=== PATIENT | male | born 1930 | race Caucasian/White ===

== ENCOUNTER 2018-06-21 06:14 | Inpatient (IN) ==
--- NOTE | 2018-06-21 06:46 | ED ---
HPI General Chief Complaint: Shortness of Breath/Dyspnea Stated Complaint: Stemi Alert Time Seen by Provider: 06/21/18 06:38 History of Present Illness 87-year-old male presents to the emergency department from home by EMS transport for complaint of shortness of breath. Patient called EMS this morning complaining of shortness of breath. Upon EMS from arrival to the patient's home he was visibly dyspneic and room air O2 saturation of 89%. Patient has history of COPD and is followed by Dr. Beckwith as his glass toughening operator. Patient's primary care provider is through the [place]. Patient has been evaluated in the past for atypical chest pain or left mid scapular pain and has been told in the past that he had a silent KY. Patient was seen in the hospital as recently as 2012 at which time he states he had a complete workup that showed no cardiac problems. Patient states that he does not smoke cigarettes. Patient states this episode of exacerbation of his COPD began around 2 AM on Wednesday morning resolved with use of home nebulizer and home medic patient's and his symptoms recurred at 2300 last evening and remained persistent. Patient does report having a 3/10 intensity discomfort that he calls a soreness that he has had for 3 weeks to the medial aspect of the left scapula. Patient has had this before. Patient is currently under the care of a chiropractor to massage out the area of discomfort. Patient states this discomfort is not new. Patient does not report any orthopnea or PND. Patient does not report any new swelling of the lower extremities. Patient does not report fever or chills. Patient does report feeling symptomatically improved after updraft treatments provided by EMS prior to arrival to the emergency department. According to paramedics he received an albuterol treatment as well as a DuoNeb treatment 125 mg of Solu-Medrol prior to arrival to the emergency department as well as 324 mg of aspirin. Patient does not take any blood thinning agents. Patient denies any chest pain. Patient does not report any neck jaw shoulder arm or abdominal pain. Patient is unclear as to what exacerbates or alleviates his symptoms. EMS reportedly called a STEMI alert from the field due to unknown new onset of left bundle branch block with shortness of breath and left mid scapular pain as well as prior reported history of silent KY. Patient's puppet master is Dr. Andrade, patient's primary care provider is the [facility], patient's glass toughening operator is Dr. Stovall. Related Data Home Medications Medication Instructions Recorded Confirmed aspirin [Aspirin Low Dose] 81 mg PO DAILY 06/21/18 06/21/18 brimonidine 1 drp OPHTHALMIC (EYE) BID 06/21/18 06/21/18 budesonide-formoterol 2 puff INHALATION BID 06/21/18 06/21/18 doxazosin 4 mg PO DAILY 06/21/18 06/21/18 finasteride 5 mg PO DAILY 06/21/18 06/21/18 gabapentin 100 mg PO TID 06/21/18 06/21/18 methimazole 5 mg PO DAILY 06/21/18 06/21/18 Allergies Allergy/AdvReac Type Severity Reaction Status Date / Time codeine Allergy Severe Irritabilit Verified 06/21/18 06:55 y/Anxiety diclofenac Allergy Severe Rash Verified 06/21/18 06:55 neomycin Allergy Intermediate Rash Verified 06/21/18 06:55 alfuzosin Allergy unknown Verified 06/21/18 06:55 hydrochlorothiazide Allergy unknown Verified 06/21/18 06:55 lisinopril Allergy Swelling Verified 06/21/18 06:55 losartan Allergy unknown Verified 06/21/18 06:55 Review of Systems Except as stated in HPI: all other systems reviewed are negative PMFSH Medical History Medical History Anxiety (Acute) BPH (benign prostatic hyperplasia) (Acute) Olivares's esophagus (Acute) COPD (chronic obstructive pulmonary disease) (Acute) Degeneration of intervertebral disc (Acute) Diverticular disease of colon (Acute) Glaucoma (Acute) Hemorrhoids (Acute) History of prostate cancer (Acute) Myocardial infarct, old (Acute) Osteoarthritis (Acute) Polyp of colon (Acute) Sensorineural hearing loss (SNHL) of both ears (Acute) Shoulder pain (Acute) Stenosis of rectum and anus (Acute) 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 In mild respiratory distress able to speak in complete sentences. Room air O2 saturation 95%. No stridor or hoarseness. SKIN: Focused skin assessment warm/dry. HEAD: Normocephalic. EYES: No scleral icterus. No injection or drainage. NECK: Supple, trachea midline. No JVD or lymphadenopathy. CARDIOVASCULAR: Regular rate and rhythm without murmurs, gallops, or rubs. RESPIRATORY: Breath sounds equal bilaterally diminished with few expiratory wheezes. No accessory muscle use. GASTROINTESTINAL: Abdomen soft, non-tender, nondistended. MUSCULOSKELETAL: No cyanosis, trace to 1+ pedal edema. BACK: Nontender without obvious deformity. No CVA tenderness. Course Consultations Consultation #1: I discussed the patient with Dr. Lobato who agrees with admission. Time: 10:28 Initial Documented Vital Signs Temperature 98.2 F 06/21/18 06:20 Pulse Rate 89 06/21/18 06:20 Respiratory Rate 16 06/21/18 06:20 Blood Pressure 159/76 H 06/21/18 06:20 Pulse Oximetry 95 06/21/18 06:20 Last Documented Vital Signs Temperature 98.2 F 06/21/18 06:20 Pulse Rate 86 06/21/18 06:55 Respiratory Rate 20 06/21/18 06:55 Blood Pressure 135/75 06/21/18 06:55 Pulse Oximetry 93 L 06/21/18 07:46 Sign Out Sign Out Data: Patient Sign Out occurred on 06/21/18 at 07:15. Patient's care was discussed, and care was transferred from Tyra Gonzáles MD to Shaun Lyman MD. Sign Out Comment: 87-year-old male with history of COPD and silent KY as well as left bundle branch block; care signed over to oncoming physician Dr. Lyman; anticipate patient will be admitted for exacerbation of COPD and for serial enzymes. CTA thor/abdomen has been ordered Last updated by Tyra Gonzáles MD at 06/21/18 07:10 Post-Handoff Eval: The patient is a 87-year-old male who was initially physician. The patient was signed out with CTA pending, negative for dissection, does reveal emphysema. Chest x-ray was unremarkable. BNP was 345, troponin 0.05. The patient has a history of COPD and is followed by his glass toughening operator, Dr. Stovall. The patient has been using nebulizers at home with minimal to mild relief of his symptoms, however, symptoms are persistent. He is not on home oxygen, his O2 saturation was noted to be 89% at home by EMS. The patient was reevaluated at 9:30 AM, still has shortness of breath with retractions and elevated respiratory rate. Therefore the patient will be admitted for COPD exacerbation. Medical Decision Making MDM Narrative Medical decision making narrative: 87-year-old male presents to the emergency department by EMS transport for evaluation of shortness of breath. Patient received aspirin Solu-Medrol albuterol and DuoNeb treatments prior to arrival to the emergency department. Patient was placed on supple oxygen as room air O2 saturation at home was 89%. Patient was noted per EMS to have a left bundle branch block complaining of left mid scapular pain and therefore due to unknown history of according to the patient of a left bundle branch block with left subscapular pain a STEMI alert was called in the field due to protocol not due to patient having ongoing chest pain referred neck jaw shoulder arm or abdominal pain sweats or nausea or vomiting. Patient here reported his discomfort of 3 weeks or longer as 2/10 in intensity and states that it waxes and wanes in intensity. Patient reports he has been seen in this hospital before in 2012. Review of medical records identifies patient has pre-existing left bundle branch block and review of the puppet master note Dr. Pagan identifies at the time of his presentation he had a knot-like sensation to the left mid scapular region at that time as well. Patient placed on monitoring engineer with continuous pulse oximetry supplemental oxygen added as well as 2 DuoNeb updrafts. EKG identifies normal sinus rhythm with rate of 86 rare unifocal PVC intraventricular conduction delay with left bundle branch block pattern and age-indeterminate anteroseptal infarct changes; Nitropaste 1 inch applied to the chest wall and close monitoring of blood pressure conducted. Lab Data Lab results reviewed: Yes I reviewed the patient's lab results. Lab results narrative: BNP was 345. Troponin was 0.05. Result diagrams: 06/21/18 06:20 06/21/18 06:20 Lab Results 06/21/18 06/21/18 06/21/18 Range/Units 06:20 06:20 06:20 WBC 6.3 (4.0-11.0) th/mm3 RBC 4.57 (4.50-5.90) mil/mm3 Hgb 15.3 (13.0-17.0) gm/dL Hct 45.4 (39.0-51.0) % MCV 99.2 (80.0-100.0) fL MCH 33.5 (27.0-34.0) pg MCHC 33.8 (32.0-36.0) % RDW 13.1 (11.6-17.2) % Plt Count 121 L (150-450) th/mm3 MPV 9.5 (7.0-11.0) fL Neut % (Auto) 62.3 (16.0-70.0) % Lymph % (Auto) 21.2 (9.0-44.0) % Stanley % (Auto) 12.1 H (0.0-8.0) % Eos % (Auto) 3.5 (0.0-4.0) % Baso % (Auto) 0.9 (0.0-2.0) % Neut # (Auto) 3.9 (1.8-7.7) th/mm3 Lymph # (Auto) 1.3 (1.0-4.8) th/mm3 Stanley # (Auto) 0.8 (0.0-0.9) th/mm3 Eos # (Auto) 0.2 (0.0-0.4) th/mm3 Baso # (Auto) 0.1 (0.0-0.2) th/mm3 WBC Differential . Differential Comment Auto diff final PT 11.2 (9.8-11.6) sec INR 1.1 Ratio APTT 23.7 L (24.3-30.1) sec Sodium 143 (136-145) meq/L Potassium 3.7 (3.5-5.1) meq/L Chloride 108 H (98-107) meq/L Carbon Dioxide 30.0 (21.0-32.0) meq/L Anion Gap 5 (5-15) meq/L BUN 15 (7-18) mg/dL Creatinine 0.87 (0.60-1.30) mg/dL Estimated GFR 83 L (>89) mL/min Random Glucose 92 (74-106) mg/dL Calcium 8.8 (8.5-10.1) mg/dL Magnesium 2.2 (1.5-2.5) mg/dL Total Bilirubin 0.6 (0.2-1.0) mg/dL AST 19 (15-37) U/L ALT 21 (12-78) U/L Alkaline Phosphatase 58 (45-117) U/L Total Creatine Kinase 96 (39-308) U/L Troponin I 0.05 (0.02-0.05) ng/mL B-Natriuretic Peptide (0-100) pg/mL Total Protein 6.1 L (6.4-8.2) g/dL Albumin 3.8 (3.4-5.0) g/dL 06/21/18 Range/Units 06:20 WBC (4.0-11.0) th/mm3 RBC (4.50-5.90) mil/mm3 Hgb (13.0-17.0) gm/dL Hct (39.0-51.0) % MCV (80.0-100.0) fL MCH (27.0-34.0) pg MCHC (32.0-36.0) % RDW (11.6-17.2) % Plt Count (150-450) th/mm3 MPV (7.0-11.0) fL Neut % (Auto) (16.0-70.0) % Lymph % (Auto) (9.0-44.0) % Stanley % (Auto) (0.0-8.0) % Eos % (Auto) (0.0-4.0) % Baso % (Auto) (0.0-2.0) % Neut # (Auto) (1.8-7.7) th/mm3 Lymph # (Auto) (1.0-4.8) th/mm3 Stanley # (Auto) (0.0-0.9) th/mm3 Eos # (Auto) (0.0-0.4) th/mm3 Baso # (Auto) (0.0-0.2) th/mm3 WBC Differential Differential Comment PT (9.8-11.6) sec INR Ratio APTT (24.3-30.1) sec Sodium (136-145) meq/L Potassium (3.5-5.1) meq/L Chloride (98-107) meq/L Carbon Dioxide (21.0-32.0) meq/L Anion Gap (5-15) meq/L BUN (7-18) mg/dL Creatinine (0.60-1.30) mg/dL Estimated GFR (>89) mL/min Random Glucose (74-106) mg/dL Calcium (8.5-10.1) mg/dL Magnesium (1.5-2.5) mg/dL Total Bilirubin (0.2-1.0) mg/dL AST (15-37) U/L ALT (12-78) U/L Alkaline Phosphatase (45-117) U/L Total Creatine Kinase (39-308) U/L Troponin I (0.02-0.05) ng/mL B-Natriuretic Peptide 345 H (0-100) pg/mL Total Protein (6.4-8.2) g/dL Albumin (3.4-5.0) g/dL Imaging Data Radiologist's impression: Chest X-Ray 06/21/18 06:27 CONCLUSION: No acute cardiopulmonary disease. Thoracic Aorta CT 06/21/18 06:29 CONCLUSION: 1. No aortic dissection or aneurysm. 2. Coronary artery atherosclerotic calcifications. 3. Pronounced emphysema. Discharge Plan Discharge Disposition Patient Disposition: 30 Still Patient Discharge Condition Condition: Stable Discharge Details Diagnosis: Acute exacerbation of chronic obstructive airways disease Physicians Team ED Provider: Shaun Lyman Primary Care Provider: Primary Care Amanda Up Rxs /Orders / Referrals /Forms Prescriptions: No Action aspirin [Aspirin Low Dose] 81 mg Tablet,Delayed Release (Dr/Ec) 81 mg PO DAILY RF: 0 doxazosin 4 mg Tablet 4 mg PO DAILY RF: 0 gabapentin 100 mg Capsule 100 mg PO TID RF: 0 finasteride 5 mg Tablet 5 mg PO DAILY RF: 0 brimonidine 0.2 % Drops 1 drp OPHTHALMIC (EYE) BID RF: 0 methimazole 5 mg Tablet 5 mg PO DAILY RF: 0 budesonide-formoterol 160-4.5 mcg/actuation Hfa Aerosol Inhaler 2 puff INHALATION BID RF: 0 Status ED Status: Pending Admission
[2018-06-21 06:57] LABS: Baso # (Auto) 0.1 th/mm3 (0.0-0.2); Baso % (Auto) 0.9 % (0.0-2.0); Eos # (Auto) 0.2 th/mm3 (0.0-0.4); Eos % (Auto) 3.5 % (0.0-4.0); Hematocrit 45.4 % (39.0-51.0); Hemoglobin 15.3 gm/dL (13.0-17.0); Lymph # (Auto) 1.3 th/mm3 (1.0-4.8); Lymph % (Auto) 21.2 % (9.0-44.0); Mean Corpuscular HGB Conc 33.8 % (32.0-36.0); Mean Corpuscular Hemoglobin 33.5 pg (27.0-34.0); Mean Corpuscular Volume 99.2 fL (80.0-100.0); Mean Platelet Volume 9.5 fL (7.0-11.0); Mono # (Auto) 0.8 th/mm3 (0.0-0.9); Mono % (Auto) 12.1 % (0.0-8.0); Neut # (Auto) 3.9 th/mm3 (1.8-7.7); Neut % (Auto) 62.3 % (16.0-70.0); Platelet Count 121 th/mm3 (150-450); Red Blood Count 4.57 mil/mm3 (4.50-5.90); Red Cell Distribution Width 13.1 % (11.6-17.2); White Blood Count 6.3 th/mm3 (4.0-11.0)
[2018-06-21 07:16] LABS: Activated Partial Thrombo Time 23.7 sec (24.3-30.1); INR 1.1 Ratio; Prothrombin Time 11.2 sec (9.8-11.6)
--- NOTE | 2018-06-21 07:19 | XR ---
EXAM DATE: 06/21/2018 7:00 AM EDT AGE/SEX: 87 years / Male INDICATIONS: Short of breath. Left scapular pain. CLINICAL DATA: This is the patient's initial encounter. Patient reports that signs and symptoms have been present for 1 day and indicates a pain score of 3/10. MEDICAL/SURGICAL HISTORY: Chronic obstructive pulmonary disease. Silent myocardial infarction. None. COMPARISON: POI, XR CHEST PA AND LAT, 11/17/2017. . FINDINGS: The lungs are clear without infiltrate, nodule, or mass. There is no appreciable pleural effusion for technique. Heart and mediastinum are unremarkable. CONCLUSION: No acute cardiopulmonary disease. Electronically signed by: Andrade Pennington MD 06/21/2018 7:17 AM EDT
[2018-06-21 07:27] LABS: Alanine Aminotransferase 21 U/L (12-78); Albumin 3.8 g/dL (3.4-5.0); Anion Gap 5 meq/L (5-15); Aspartate Aminotransferase 19 U/L (15-37); Blood Urea Nitrogen 15 mg/dL (7-18); Calcium 8.8 mg/dL (8.5-10.1); Chloride 108 meq/L (98-107); Glomerular Filtration Rate 83 mL/min (>89); Glucose,Random 92 mg/dL (74-106); Magnesium 2.2 mg/dL (1.5-2.5); Potassium 3.7 meq/L (3.5-5.1); Sodium 143 meq/L (136-145)
[2018-06-21 07:31] LABS: Alkaline Phosphatase 58 U/L (45-117); Total Protein 6.1 g/dL (6.4-8.2); Troponin I 0.05 ng/mL (0.02-0.05)
[2018-06-21 07:39] LABS: Creatine Kinase 96 U/L (39-308)
--- NOTE | 2018-06-21 09:16 | CT ---
EXAM DATE: 06/21/2018 8:34 AM EDT AGE/SEX: 87 years / Male INDICATIONS: Shortness of breath and chest pain. CLINICAL DATA: This is the patient's initial encounter. Patient reports that signs and symptoms have been present for 1 day and indicates a pain score of 3/10. MEDICAL/SURGICAL HISTORY: Chronic obstructive pulmonary disease. Prostate cancer. None. RADIATION DOSE: 6.45 CTDI (mGy) COMPARISON: CT of the thorax 06/03/2013. TECHNIQUE: Volumetric scanning was performed using a multi-row detector CT scanner during bolus infu corina of 96 ml Omnipaque 350 (iohexol) nonionic water-soluble contrast as a single exam dose. The da ta was post processed with a variety of visualization algorithms including full volume maximum intens ity projection, multi-planar sliding thin slab reformation, curved planar reformation, and surface re ndering techniques. Using automated exposure control and adjustment of the mA and/or kV according to patient size, radiation dose was kept as low as reasonably achievable to obtain optimal diagnostic q uality images. DICOM format image data is available electronically for review and comparison. FINDINGS: THORACIC/ABDOMINAL AORTA: The aorta is normal in caliber and course. No aneurysm or dissection. Scatt ered calcified atheromatous plaque without hemodynamically significant stenosis involving the aorta o r inflow vessels. Conventional anatomy at the arch vessels. Arch vessels are patent. The celiac, SMA, TANK, and renal arteries are patent. HEART AND MEDIASTINUM: The heart is normal in size. No pericardial effusion. Coronary artery atherosc lerotic calcifications are noted. Pulmonary arteries are normal in caliber. No filling defects observ ed. No mass or adenopathy. LUNG PARENCHYMA: Bullous emphysematous changes again noted. No acute infiltrate. OTHER STRUCTURES: The gallbladder is surgically absent. Right lower pole renal cyst. Hepatic steatosi s. Scattered colonic diverticuli. A degenerative lumbar spine. CONCLUSION: 1. No aortic dissection or aneurysm. 2. Coronary artery atherosclerotic calcifications. 3. Pronounced emphysema. Electronically signed by: James Nash MD 06/21/2018 9:15 AM EDT
--- NOTE | 2018-06-21 09:48 | ECG ---
Date Performed: 06/21/2018 Time Performed: 06:22:17 PTAGE: 87 years EKG: Sinus rhythm WITH OCCASIONAL VENTRICULAR PREMATURE COMPLEXES LEFT BUNDLE BRANCH BLOCK ABNORMAL ECG NO PREVIOUS TRACING DOCTOR: Tho Fenton Interpretating Date/Time 06/21/2018 09:47:46
--- NOTE | 2018-06-21 11:28 | P.HPIM ---
History of Present Illness Primary Care Physician: No Primary Care Physician Chief Complaint: shortness of breath History of Present Illness: patient is a 87 y/o male with history of emphysema,CAD and prostate cancer who presented to ER with worsening sob. he says that his sob started two days ago and gradually got worse. he says that he used all his home inhalers and also his nebulizer with no significant relief. he denies any chest pain, fever, chills. he denies any cough and he says that his sputum is clear. he was noted to have an O2 sat of 89% upon arrival to ER. Inpatient Certification: I certify that the inpatient services were ordered in accordance with Medicare regulations governing the order. 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 - Medical History Medical History: Medical History (Last Updated 06/21/18 @ 07:16 by Dang Schofield) Anxiety BPH (benign prostatic hyperplasia) Olivares's esophagus COPD (chronic obstructive pulmonary disease) Degeneration of intervertebral disc Diverticular disease of colon Glaucoma Hemorrhoids History of prostate cancer Myocardial infarct, old Osteoarthritis Polyp of colon Sensorineural hearing loss (SNHL) of both ears Shoulder pain Stenosis of rectum and anus Thyrotoxicosis with or without goiter - Tobacco History Second Hand Smoke Exposure: No Tobacco Use In Past 30 Days: No Smoking Status: Former smoker Tobacco Type: Cigarettes - Alcohol History How Often Do You Have a Drink Containing Alcohol: Never - Substance Use History Substance History: No History of Abuse - Immunization History Tetanus Immunization: <5 Years Hx Influenza Vaccine This Season: Yes Medications and Allergies Allergies Allergy/AdvReac Type Severity Reaction Status Date / Time codeine Allergy Severe Irritabilit Verified 06/21/18 06:55 y/Anxiety diclofenac Allergy Severe Rash Verified 06/21/18 06:55 neomycin Allergy Intermediate Rash Verified 06/21/18 06:55 alfuzosin Allergy unknown Verified 06/21/18 06:55 hydrochlorothiazide Allergy unknown Verified 06/21/18 06:55 lisinopril Allergy Swelling Verified 06/21/18 06:55 losartan Allergy unknown Verified 06/21/18 06:55 Home Medications Medication Instructions Recorded Confirmed Type aspirin [Aspirin Low Dose] 81 mg PO DAILY 06/21/18 06/21/18 History brimonidine 1 drp OPHTHALMIC (EYE) BID 06/21/18 06/21/18 History budesonide-formoterol 2 puff INHALATION BID 06/21/18 06/21/18 History doxazosin 4 mg PO DAILY 06/21/18 06/21/18 History finasteride 5 mg PO DAILY 06/21/18 06/21/18 History gabapentin 100 mg PO TID 06/21/18 06/21/18 History methimazole 5 mg PO DAILY 06/21/18 06/21/18 History Exam Vital signs: Vital Signs 06/21/18 06:20 06/21/18 06:25 06/21/18 06:30 Temperature 98.2 F Pulse Rate 83 79 88 Respiratory Rate 16 22 Blood Pressure 159/76 H Pulse Oximetry 95 96 06/21/18 06:35 06/21/18 06:50 06/21/18 06:55 Temperature Pulse Rate 83 86 Respiratory Rate 18 20 Blood Pressure 135/75 Pulse Oximetry 94 L 94 L 06/21/18 07:46 Temperature Pulse Rate Respiratory Rate Blood Pressure Pulse Oximetry 93 L Intake & Output 06/20/18 06/21/18 06/21/18 18:59 06:59 18:59 Weight 73.482 kg - Constitutional mild distress - Routine HEENT Exam Head: Present: atraumatic - Routine Neck Exam Present: supple - Routine Respiratory Exam Present: diminished air movement - Routine Cardiovascular Exam Present: RRR - Routine Abdominal Exam Present: soft - Routine Neurological Exam Present: alert, oriented X3 no pedal edema. Results - Labs CBC & Chem 7: 06/21/18 06:20 06/21/18 06:20 Labs: Short CBC 06/21/18 Range/Units 06:20 WBC 6.3 (4.0-11.0) th/mm3 Hgb 15.3 (13.0-17.0) gm/dL Hct 45.4 (39.0-51.0) % Plt Count 121 L (150-450) th/mm3 BMP 06/21/18 06:20 Sodium 143 Potassium 3.7 Chloride 108 H Carbon Dioxide 30.0 BUN 15 Creatinine 0.87 Calcium 8.8 Cardiac Enzymes 06/21/18 Range/Units 06:20 Total Creatine Kinase 96 (39-308) U/L Troponin I 0.05 (0.02-0.05) ng/mL Liver Function 06/21/18 Range/Units 06:20 Total Bilirubin 0.6 (0.2-1.0) mg/dL AST 19 (15-37) U/L ALT 21 (12-78) U/L Alkaline Phosphatase 58 (45-117) U/L Albumin 3.8 (3.4-5.0) g/dL - Imaging Impressions Chest X-Ray 06/21/18 06:27 CONCLUSION: No acute cardiopulmonary disease. Thoracic Aorta CT 06/21/18 06:29 CONCLUSION: 1. No aortic dissection or aneurysm. 2. Coronary artery atherosclerotic calcifications. 3. Pronounced emphysema. Caprini VTE Risk Assessment Caprini VTE Risk Assessment: Moderate/High Risk (score >= 2) Caprini Risk Assessment Model: Point Value = 1 Point Value = 2 Point Value = 3 Point Value = 5 Age 41-60 Minor surgery BMI > 25 kg/m2 Swollen legs Varicose veins or History of unexplained or recurrent spontaneous Oral contraceptives or hormone replacement Sepsis (< 1 month) Serious lung disease, including pneumonia (< 1 month) Abnormal pulmonary function Acute myocardial infarction Congestive heart failure (< 1 month) History of inflammatory bowel disease Medical patient at bed rest Age 61-74 Arthroscopic surgery Major open surgery (> 45 min) Laparoscopic surgery (> 45 min) Malignancy Confined to bed (> 72 hours) Immobilizing plaster cast Central venous access Age >= 75 History of VTE Family history of VTE Factor V Leiden Prothrombin [id number] Lupus anticoagulant Anticardiolipin antibodies Elevated serum homocysteine Heparin-induced thrombocytopenia Other congenital or acquired thrombophilia Stroke (< 1 month) Elective arthroplasty Hip, pelvis, or leg fracture Acute spinal cord injury (< 1 month) Prophylaxis Regimen: Total Risk Factor Score Risk Level Prophylaxis Regimen 0-1 Low Early ambulation 2 Moderate Order ONE of the following: *Sequential Compression Device (SCD) *Heparin 5000 units SQ BID 3-4 Higher Order ONE of the following medications: *Heparin 5000 units SQ TID *Enoxaparin/Lovenox 40 mg SQ daily (WT < 150 kg, CrCl > 30 mL/min) *Enoxaparin/Lovenox 30 mg SQ daily (WT < 150 kg, CrCl > 10-29 mL/min) *Enoxaparin/Lovenox 30 mg SQ BID (WT < 150 kg, CrCl > 30 mL/min) AND/OR *Sequential Compression Device (SCD) 5 or more Highest Order ONE of the following medications: *Heparin 5000 units SQ TID (Preferred with Epidurals) *Enoxaparin/Lovenox 40 mg SQ daily (WT < 150 kg, CrCl > 30 mL/min) *Enoxaparin/Lovenox 30 mg SQ daily (WT < 150 kg, CrCl > 10-29 mL/min) *Enoxaparin/Lovenox 30 mg SQ BID (WT < 150 kg, CrCl > 30 mL/min) AND *Sequential Compression Device (SCD) Assessment and Plan - Plan A/P - acute hypoxemic respiratory failure keep on oxygen to keep O2 sat > 90%- continue with scheduled and PRN neb treatment- will start on IV steroids. consult pulmonary ( )- needs walk test before discharge. -history of CAD and prostate cancer; resume home meds. -consult PT and case management for dc planning. -DVT prophylaxis with subq Lovenox. Discussed Condition With: ER physician, the patient and his family.
[2018-06-21] MEDS: MethylPREDNISolone Sod Succinate Inj 40 MG/ML Vial IV.PUSH SCH ×2 (13:12→23:21)
[2018-06-21] MEDS: Gabapentin 100 MG Capsule PO SCH ×2 (13:12→18:45)
[2018-06-21] MEDS: ALPRAZolam 0.25 MG Tablet PO PRN (16:44)
--- NOTE | 2018-06-21 20:33 | MB ---
cc: Fabio Stovall MD, Arjun D MD DATE: 06/21/2018 REQUESTING PHYSICIAN: Dr. Lobato REASON FOR CONSULTATION: COPD exacerbation. HISTORY OF PRESENT ILLNESS: Mr. Alba is a pleasant 87-year-old male with history of severe COPD. He has been having chest pain for about 1 month or so off and on in the back area. He has seen a chiropractor and other physicians who did not help him. Over the last 2 days, he has been having worsening of his shortness of breath. Yesterday, he could not sleep because of shortness of breath. He continued to have his chest discomfort. EMS was called and initially he was brought in as a STEMI alert. He had a CT scan of the chest done, which shows no aortic dissection other than severe emphysema, no other changes were noted. Patient given bronchodilator treatment and feels significantly better. Chest pain is somewhat improved. He has tightness in the chest. No fever or chills. No sputum production. LABORATORY DATA: His workup shows WBC count 6.3, hemoglobin 15.3, hematocrit 45.4, MCV 99, platelet count 121. Sodium 143, potassium 3.7, chloride 100, CO2 of 30, BUN 15, creatinine 0.87. Troponin 0.05. BNP 345. PAST MEDICAL HISTORY: Significant for history of COPD, anxiety disorder, BPH, Olivares's esophagitis, history of CA of the prostate, history of PA in the past. CURRENT MEDICATIONS: 1. Albuterol nebulizer treatment. 2. Xanax 0.25 mg q. 12 hrs. 3. Aspirin 81 mg a day. 4. Alphagan eye drops. 5. Symbicort 160/4.5 two puffs twice a day. 6. Cardura 4 mg a day. 7. Lovenox 40 mg a day 8. Finasteride 5 mg a day. 9. Neurontin 100 mg 3 times a day. 10. Methimazole 5 mg daily. 11. Solu-Medrol 40 mg q. 8 hrs. 12. Tramadol 50 mg at night. ALLERGIES: CODEINE, DICLOFENAC, NEOMYCIN, ALFUZOSIN, HYDROCHLOROTHIAZIDE, LISINOPRIL AND LOSARTAN. SOCIAL HISTORY: He has history of smoking in the past. No alcohol abuse. FAMILY HISTORY: He lives alone. His niece lives nearby. REVIEW OF SYSTEMS: He lives alone. He is able to ambulate. Does not use any oxygen. No DVT or pulmonary embolism. No seizure, stroke or epilepsy. PHYSICAL EXAMINATION: GENERAL: Elderly male, mildly short of breath, not in any acute distress. VITAL SIGNS: Blood pressure 147/83, heart rate 74, respirations 20, temperature 99. HEENT: Pupils are equal and reactive to light. Oral mucosa and nasal mucosa normal. NECK: Supple. JVP not raised. CHEST: He has expiratory rhonchi. HEART: S1, S2 normal. ABDOMEN: Benign. EXTREMITIES: No edema. IMPRESSION: 1. Chronic obstructive pulmonary disease with exacerbation. 2. Chest pain, chronic. 3. History of coronary artery disease. 4. Carcinoma of the prostate. PLAN: I discussed with patient and his niece. We will give him aerosol treatment, IV Solu-Medrol, Xanax for anxiety, supplement his oxygen. We will reevaluate him for home oxygen therapy. Further treatment will depend on the course in the hospital. Thank you, Dr. Lobato, for this consult. MD SWATHI Robertson//nadine , 07:17 PM , 07:39 PM
[2018-06-21] MEDS: Budesonide-Formoterol 160/4.5 MCG 6 GM Inhaler INH SCH (23:21)
[2018-06-21] MEDS: Brimonidine 0.2% Opth Drops 5 ML Bottle EACH EYE SCH (23:21)
[2018-06-22] MEDS: MethylPREDNISolone Sod Succinate Inj 40 MG/ML Vial IV.PUSH SCH ×3 (04:16→21:21)
[2018-06-22] MEDS: Enoxaparin Inj 40 MG/0.4 ML Syringe SQ SCH (09:39)
[2018-06-22] MEDS: ALPRAZolam 0.25 MG Tablet PO PRN (09:40)
[2018-06-22] MEDS: Gabapentin 100 MG Capsule PO SCH ×3 (09:40→18:32)
[2018-06-22] MEDS: Doxazosin 4 MG Tablet PO SCH (09:40)
[2018-06-22] MEDS: Budesonide-Formoterol 160/4.5 MCG 6 GM Inhaler INH SCH ×2 (09:41→21:22)
[2018-06-22] MEDS: Brimonidine 0.2% Opth Drops 5 ML Bottle EACH EYE SCH ×2 (09:41→21:22)
[2018-06-22] MEDS: Finasteride 5 MG Tablet PO SCH (09:41)
--- NOTE | 2018-06-22 13:09 | P.PN ---
Subjective Interval history: patient feel better minimal dry cough not on home 02 also with anxiety component baseline uses a cane when out of the house Physical Exam Vital signs: Vital Signs 06/21/18 13:14 06/21/18 13:30 06/21/18 16:00 Temperature 99 F Pulse Rate 94 H 74 Respiratory Rate 25 H 20 Blood Pressure 158/86 H 147/83 H Pulse Oximetry 98 95 96 06/21/18 20:00 06/21/18 22:13 06/21/18 22:14 Temperature 98 F Pulse Rate 73 74 Respiratory Rate 18 20 Blood Pressure 117/67 Pulse Oximetry 97 96 06/22/18 00:51 06/22/18 01:20 06/22/18 03:50 Temperature 97.7 F Pulse Rate 71 67 73 Respiratory Rate 16 17 16 Blood Pressure 115/72 Pulse Oximetry 97 06/22/18 04:00 06/22/18 08:00 06/22/18 09:39 Temperature 98.2 F 98.1 F Pulse Rate 68 66 83 Respiratory Rate 20 21 20 Blood Pressure 120/60 112/55 L Pulse Oximetry 98 96 94 L 06/22/18 12:00 06/22/18 12:57 Temperature 98 F Pulse Rate 68 80 Respiratory Rate 19 20 Blood Pressure 117/60 Pulse Oximetry 98 Intake & Output 06/21/18 06/22/18 06/22/18 18:59 06:59 18:59 Intake Total 720 / 720 1350 / 1350 Balance 720 / 720 1350 / 1350 Weight 73.5 kg Intake: Oral 720 / 720 1350 / 1350 Other: # Voids 2 4 Date of Last Bowel Movement 06/20/18 # Bowel Movements 0 Narrative: awake and alert, speaking in full sentences- states some anxiety component anicteric no throat exudates lungs- decrease breath sounds, occasional wheeze, no rales regular rhythm abdomen soft, nontender extremities n edema neuro exam- non focal Results - Labs CBC & Chem 7: 06/21/18 06:20 06/21/18 06:20 Assessment and Plan - Plan 87 years old male Acute hypoxemic respiratory failure- clinically feeling better- wheezes decreased - continue on solumedrol q 8- change to po in am keep on oxygen to keep O2 sat > 90%- continue with scheduled and PRN neb treatment- will start on IV steroids. 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 - continue on his inhaler- symbicort - continue on duonebs - patient states he ahs nebulizers at home history of CAD and prostate cancer; resume home meds. -consult PT and case management for dc planning. -DVT prophylaxis with subq Lovenox. History iof hypethyroidism- on Methimazole Encourage patient to up and ambulate if continues to do well- DC tomorrow
--- NOTE | 2018-06-22 17:34 | P.PNPL ---
Subjective Interval history: 87 YOWM with COPD Exac,CP, h/o ca prostate Breathing better gets anxious Xanax helps a lot On NC Physical Exam Vital signs: Vital Signs 06/21/18 20:00 06/21/18 22:13 06/21/18 22:14 Temperature 98 F Pulse Rate 73 74 Respiratory Rate 18 20 Blood Pressure 117/67 Pulse Oximetry 97 96 Pulse Oximetry [Exertion on Room Air] Pulse Oximetry [Resting on Room Air] Pulse Oximetry [Resting with Oxygen] 06/22/18 00:51 06/22/18 01:20 06/22/18 03:50 Temperature 97.7 F Pulse Rate 71 67 73 Respiratory Rate 16 17 16 Blood Pressure 115/72 Pulse Oximetry 97 Pulse Oximetry [Exertion on Room Air] Pulse Oximetry [Resting on Room Air] Pulse Oximetry [Resting with Oxygen] 06/22/18 04:00 06/22/18 08:00 06/22/18 09:39 Temperature 98.2 F 98.1 F Pulse Rate 68 66 83 Respiratory Rate 20 21 20 Blood Pressure 120/60 112/55 L Pulse Oximetry 98 96 94 L Pulse Oximetry [Exertion on Room Air] Pulse Oximetry [Resting on Room Air] Pulse Oximetry [Resting with Oxygen] 06/22/18 12:00 06/22/18 12:57 06/22/18 16:33 Temperature 98 F Pulse Rate 68 80 78 Respiratory Rate 19 20 20 Blood Pressure 117/60 Pulse Oximetry 98 Pulse Oximetry [Exertion on Room Air] Pulse Oximetry [Resting on Room Air] Pulse Oximetry [Resting with Oxygen] 06/22/18 17:28 Temperature Pulse Rate Respiratory Rate Blood Pressure Pulse Oximetry Pulse Oximetry [Exertion on Room Air] 83 L Pulse Oximetry [Resting on Room Air] 92 L Pulse Oximetry [Resting with Oxygen] 92 L Intake & Output 06/21/18 06/22/18 06/22/18 18:59 06:59 18:59 Intake Total 720 / 720 1350 / 1350 Balance 720 / 720 1350 / 1350 Weight 73.5 kg Intake: Oral 720 / 720 1350 / 1350 Other: # Voids 2 4 Date of Last Bowel Movement 06/20/18 # Bowel Movements 0 GENERAL: Elderly WM, mild sob, anxious SKIN: Warm and dry. HEAD: Normocephalic. EYES: No scleral icterus. No injection or drainage. NECK: Supple, trachea midline. No JVD or lymphadenopathy. CARDIOVASCULAR: Regular rate and rhythm without murmurs, gallops, or rubs. RESPIRATORY: Breath sounds equal bilaterally. No accessory muscle use. End exp rhonchi. GASTROINTESTINAL: Abdomen soft, non-tender, nondistended. MUSCULOSKELETAL: No cyanosis, or edema. BACK: Nontender without obvious deformity. No CVA tenderness. Assessment and Plan - Plan IMPRESSION: 1. Chronic obstructive pulmonary disease with exacerbation. 2. Chest pain, chronic. 3. History of coronary artery disease. 4. Carcinoma of the prostate. PLAN: Aerosol nebs IV Steroids Supplement 02 walk test xanax prn for anxiety.
[2018-06-23] MEDS: MethylPREDNISolone Sod Succinate Inj 40 MG/ML Vial IV.PUSH SCH ×2 (04:16→11:19)
[2018-06-23] MEDS: ALPRAZolam 0.25 MG Tablet PO PRN ×2 (06:26→16:32)
[2018-06-23] MEDS: Doxazosin 4 MG Tablet PO SCH (08:34)
[2018-06-23] MEDS: Finasteride 5 MG Tablet PO SCH (08:34)
[2018-06-23] MEDS: Budesonide-Formoterol 160/4.5 MCG 6 GM Inhaler INH SCH (08:35)
[2018-06-23] MEDS: Enoxaparin Inj 40 MG/0.4 ML Syringe SQ SCH (08:35)
[2018-06-23] MEDS: Gabapentin 100 MG Capsule PO SCH ×2 (08:35→12:05)
[2018-06-23] MEDS: Brimonidine 0.2% Opth Drops 5 ML Bottle EACH EYE SCH (08:35)
--- NOTE | 2018-06-23 09:37 | P.PN ---
Subjective Interval history: awake and alert, no coughing speells- definitely some anxiety component/attacks on exam- no wheezing he qualifies for home 02 definitely has some anxiety componenet- but not clear what comes first and trigger SOB or anxiety comes first Physical Exam Vital signs: Vital Signs 06/22/18 09:39 06/22/18 12:00 06/22/18 12:57 Temperature 98 F Pulse Rate 83 68 80 Respiratory Rate 20 19 20 Blood Pressure 117/60 Pulse Oximetry 94 L 98 Pulse Oximetry [Exertion on Room Air] Pulse Oximetry [Resting on Room Air] Pulse Oximetry [Resting with Oxygen] 06/22/18 16:00 06/22/18 16:33 06/22/18 17:28 Temperature 97.5 F L Pulse Rate 80 78 Respiratory Rate 19 20 Blood Pressure 135/68 Pulse Oximetry 97 Pulse Oximetry [Exertion on Room Air] 83 L Pulse Oximetry [Resting on Room Air] 92 L Pulse Oximetry [Resting with Oxygen] 92 L 06/22/18 20:00 06/22/18 20:32 06/23/18 00:00 Temperature 98.0 F 97.3 F L Pulse Rate 75 84 83 Respiratory Rate 19 18 18 Blood Pressure 148/66 H 130/70 Pulse Oximetry 95 95 94 L Pulse Oximetry [Exertion on Room Air] Pulse Oximetry [Resting on Room Air] Pulse Oximetry [Resting with Oxygen] 06/23/18 00:03 06/23/18 04:00 06/23/18 04:10 Temperature 98.6 F Pulse Rate 74 82 84 Respiratory Rate 16 18 17 Blood Pressure 125/77 Pulse Oximetry 96 98 97 Pulse Oximetry [Exertion on Room Air] Pulse Oximetry [Resting on Room Air] Pulse Oximetry [Resting with Oxygen] 06/23/18 08:00 Temperature 97.4 F L Pulse Rate 77 Respiratory Rate 16 Blood Pressure 144/74 H Pulse Oximetry 97 Pulse Oximetry [Exertion on Room Air] Pulse Oximetry [Resting on Room Air] Pulse Oximetry [Resting with Oxygen] Intake & Output 06/22/18 06/23/18 06/23/18 18:59 06:59 18:59 Intake Total 720 / 720 Balance 720 / 720 Weight 73.3 kg Intake: Oral 720 / 720 Other: # Voids 4 1 Date of Last Bowel Movement 06/22/18 06/22/18 # Bowel Movements 0 Narrative: laying flat in bed awake and alert, speaking in full sentences- anicteric no throat exudates lungs- decrease breath sounds, good air entry, no wheezes, no rhonchi regular rhythm abdomen soft, nontender extremities no edema neuro exam- non focal Results - Labs CBC & Chem 7: 06/21/18 06:20 06/21/18 06:20 Assessment and Plan - Plan 87 years old male Acute hypoxemic respiratory failure- secondary to COPD exacerbation- 02 requiring - continue on solumedrol q 8- change to po Prednisone keep on oxygen to keep O2 sat > 90%- continue with scheduled and PRN neb treatment- seen by Dr. ureña- known to hime - needs walk test before discharge. - continue on his inhaler- symbicort - continue on duonebs- patient states he has machine and meds at home - patient states he ahs nebulizers at home - change to po steroids= Prednisone 20 mg po bid x 5 days history of CAD and prostate cancer; resume home meds. -consult PT and case management for dc planning. -DVT prophylaxis with subq Lovenox. History iof hypethyroidism- on Methimazole - needs OP ff up with his PCP- check TFTS Anxiety component - continue on Xanax 0.25 mg po bid Encourage patient to up and ambulate DC today with home 02 if arrranged OP ff up with PCP-- Genie and Dr. Ureña
--- NOTE | 2018-06-23 09:41 | P.DCO ---
- Home Health Nursing Order: Medical education, Signs/symptoms of disease process, Oxygen administration education, Nursing assessment with vital signs - Case Management Consult Yes - Certification I have seen patient Tommy Alba on 06/23/18. My clinical findings support the need for the requested home health care services because: Limited mobility due to disease progression, Patient has SOB I certify that my clinical findings support that this patient is homebound because: Hx COPD - exertion dyspnea/weakness
[2018-06-23 11:19] VITALS: RESP 16
[2018-06-23 12:10] VITALS: BP 103/64; PULSE 70; TEMP 97.8; O2SAT 93
== END 2018-06-23 16:49 | disposition home health service (06) ==
LOC: NEPC 06:14 → NEDA 10:43 → N05 13:26
PROVIDERS: ADMIT Internal Medicine; ATTEND Internal Medicine

== ENCOUNTER 2018-07-23 13:01 | Inpatient (IN) ==
[2018-07-23] MEDS ORDERED: MethylPREDNISolone Sod Succinate Inj 125 MG/2 ML Vial IV.PUSH ONE (13:19)
--- NOTE | 2018-07-23 13:35 | ED ---
HPI General Chief Complaint: Shortness of Breath/Dyspnea Stated Complaint: SOB Time Seen by Provider: 07/23/18 13:09 Source: patient, EMS, RN notes reviewed and old records reviewed Mode of arrival: EMS Limitations: no limitations History of Present Illness 87-year-old male presents by ambulance for shortness of breath. He wears 2 L of nasal cannula oxygen all the time now. 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 The ambulance team arrived his oxygen saturation was in the 70s on his home oxygen. They placed him on 4 L and gave him a breathing treatment. When his heart rate was elevated they gave him Cardizem IV prior to arrival. Patient states he is feeling better now. He states that his temp at home was 99.8. He denies other concurrent complaints. MD Complaint: shortness of breath Onset (ago): day(s) Severity: similar to previous episodes Consistency/Duration: constant Relieving factors: bronchodilators Exacerbating factors: movement Known history of: COPD Associated symptoms: fever Treatment prior to arrival: oxygen and bronchodilator Related Data Home Medications Medication Instructions Recorded Confirmed aspirin [Aspirin Low Dose] 81 mg PO DAILY 06/21/18 07/23/18 brimonidine 1 drp OPHTHALMIC (EYE) BID 06/21/18 07/23/18 budesonide-formoterol 2 puff INHALATION BID 06/21/18 07/23/18 doxazosin 4 mg PO DAILY 06/21/18 07/23/18 finasteride 5 mg PO DAILY 06/21/18 07/23/18 gabapentin 100 mg PO TID 06/21/18 07/23/18 methimazole 5 mg PO DAILY 06/21/18 07/23/18 tramadol 50 mg PO QID 06/21/18 07/23/18 furosemide [Lasix] 20 mg PO DAILY 07/23/18 07/23/18 potassium chloride 10 meq PO DAILY 07/23/18 07/23/18 Previous Rx's Medication Instructions Recorded alprazolam [Xanax] 0.25 mg PO Q12H PRN #20 tab 06/23/18 ipratropium-albuterol 1 amp NEB Q4HR NEB ml 06/23/18 Allergies Allergy/AdvReac Type Severity Reaction Status Date / Time codeine Allergy Severe Irritabilit Verified 07/23/18 13:22 y/Anxiety diclofenac Allergy Severe Rash Verified 07/23/18 13:22 neomycin Allergy Intermediate Rash Verified 07/23/18 13:22 Review of Systems ROS: all other systems reviewed are negative [facility] Medical History Medical History Emphysema of lung (Acute) Anxiety (Acute) BPH (benign prostatic hyperplasia) (Acute) Olivares's esophagus (Acute) COPD (chronic obstructive pulmonary disease) (Acute) Degeneration of intervertebral disc (Acute) Diverticular disease of colon (Acute) Glaucoma (Acute) Hemorrhoids (Acute) History of prostate cancer (Acute) Myocardial infarct, old (Acute) Osteoarthritis (Acute) Polyp of colon (Acute) Sensorineural hearing loss (SNHL) of both ears (Acute) Shoulder pain (Acute) Stenosis of rectum and anus (Acute) Thyrotoxicosis with or without goiter (Acute) Social History Social History Substance History: No History of Abuse Second Hand Smoke Exposure: No Smoking Status: Former smoker Tobacco Type: Cigarettes How Often Do You Have a Drink Containing Alcohol: Never Recent Travel in [facility] within the Last 8 Weeks: No Recent Out of Country Travel within the Last 8 Weeks: No Immunization History Tetanus Immunization: <5 Years Tetanus Immunization Year if Known: 2012 Exam Narrative Exam Narrative: GENERAL: 87-year-old male in no apparent distress SKIN: Focused skin assessment warm/dry. HEAD: Atraumatic. Normocephalic. EYES: Pupils equal and round. No scleral icterus. No injection or drainage. ENT: No nasal bleeding or discharge. Mucous membranes pink and moist. NECK: Trachea midline. CARDIOVASCULAR: irregular rate and rhythm. RESPIRATORY: Inspiratory and expiratory wheezing bilaterally GASTROINTESTINAL: Abdomen soft, non-tender, nondistended. MUSCULOSKELETAL: No obvious deformities. No clubbing. No cyanosis. NEUROLOGICAL: Awake and alert. Moves all extremities. Normal speech. PSYCHIATRIC: Appropriate mood and affect Course Reevaluation(s) Reevaluation #1: Patient and updated about results. 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 Patient given aspirin. Currently no chest pain. Agree to admission for further care. Patient is currently on 3 L of oxygen Consultations Consultation #1: Dr. Merida agrees to admission Initial Documented Vital Signs Pulse Oximetry 95 07/23/18 13:18 Last Documented Vital Signs Temperature 99.3 F 07/23/18 13:21 Pulse Rate 78 07/23/18 15:13 Respiratory Rate 20 07/23/18 15:13 Blood Pressure 112/62 07/23/18 15:13 Pulse Oximetry 94 L 07/23/18 15:13 Medical Decision Making MDM Narrative Medical decision making narrative: Will check blood work, imaging and dose with Solu-Medrol and repeat DuoNeb's and reevaluate. EKG shows left bundle which is on prior per patient, no active chest pain Medical Screen Exam Complete: Yes Emergency Medical Condition: Yes Differential Diagnosis Differential Diagnosis: COPD exacerbation, CHF, anemia, renal failure, pneumonia Lab Data Lab results reviewed: Yes I reviewed the patient's lab results. Result diagrams: 07/23/18 13:26 07/23/18 13:26 Lab Results 07/23/18 07/23/18 07/23/18 Range/Units 13:26 13:26 13:26 WBC 6.3 (4.0-11.0) th/mm3 RBC 4.24 L (4.50-5.90) mil/mm3 Hgb 14.4 (13.0-17.0) gm/dL Hct 43.1 (39.0-51.0) % MCV 101.4 H (80.0-100.0) fL MCH 33.9 (27.0-34.0) pg MCHC 33.4 (32.0-36.0) % RDW 12.5 (11.6-17.2) % Plt Count 166 (150-450) th/mm3 MPV 8.6 (7.0-11.0) fL Neut % (Auto) 80.9 H (16.0-70.0) % Lymph % (Auto) 7.2 L (9.0-44.0) % Wharton % (Auto) 10.6 H (0.0-8.0) % Eos % (Auto) 0.5 (0.0-4.0) % Baso % (Auto) 0.8 (0.0-2.0) % Neut # (Auto) 5.1 (1.8-7.7) th/mm3 Lymph # (Auto) 0.5 L (1.0-4.8) th/mm3 Wharton # (Auto) 0.7 (0.0-0.9) th/mm3 Eos # (Auto) 0.0 (0.0-0.4) th/mm3 Baso # (Auto) 0.0 (0.0-0.2) th/mm3 WBC Differential . Differential Comment Auto diff final PT 11.6 (9.8-11.6) sec INR 1.1 Ratio APTT 25.3 (24.3-30.1) sec Sodium 141 (136-145) meq/L Potassium 4.1 (3.5-5.1) meq/L Chloride 103 (98-107) meq/L Carbon Dioxide 29.4 (21.0-32.0) meq/L Anion Gap 9 (5-15) meq/L BUN 17 (7-18) mg/dL Creatinine 0.91 (0.60-1.30) mg/dL Estimated GFR 78 L (>89) mL/min Random Glucose 99 (74-106) mg/dL Lactic Acid (0.4-2.0) mmol/L Calcium 8.6 (8.5-10.1) mg/dL Magnesium 2.2 (1.5-2.5) mg/dL Total Bilirubin 0.7 (0.2-1.0) mg/dL AST 21 (15-37) U/L ALT 33 (12-78) U/L Alkaline Phosphatase 73 (45-117) U/L Total Creatine Kinase 97 (39-308) U/L Troponin I 0.29 H (0.02-0.05) ng/mL B-Natriuretic Peptide (0-100) pg/mL Total Protein 6.4 (6.4-8.2) g/dL Albumin 3.5 (3.4-5.0) g/dL 07/23/18 07/23/18 Range/Units 13:26 13:26 WBC (4.0-11.0) th/mm3 RBC (4.50-5.90) mil/mm3 Hgb (13.0-17.0) gm/dL Hct (39.0-51.0) % MCV (80.0-100.0) fL MCH (27.0-34.0) pg MCHC (32.0-36.0) % RDW (11.6-17.2) % Plt Count (150-450) th/mm3 MPV (7.0-11.0) fL Neut % (Auto) (16.0-70.0) % Lymph % (Auto) (9.0-44.0) % Wharton % (Auto) (0.0-8.0) % Eos % (Auto) (0.0-4.0) % Baso % (Auto) (0.0-2.0) % Neut # (Auto) (1.8-7.7) th/mm3 Lymph # (Auto) (1.0-4.8) th/mm3 Wharton # (Auto) (0.0-0.9) th/mm3 Eos # (Auto) (0.0-0.4) th/mm3 Baso # (Auto) (0.0-0.2) th/mm3 WBC Differential Differential Comment PT (9.8-11.6) sec INR Ratio APTT (24.3-30.1) sec Sodium (136-145) meq/L Potassium (3.5-5.1) meq/L Chloride (98-107) meq/L Carbon Dioxide (21.0-32.0) meq/L Anion Gap (5-15) meq/L BUN (7-18) mg/dL Creatinine (0.60-1.30) mg/dL Estimated GFR (>89) mL/min Random Glucose (74-106) mg/dL Lactic Acid 1.5 (0.4-2.0) mmol/L Calcium (8.5-10.1) mg/dL Magnesium (1.5-2.5) mg/dL Total Bilirubin (0.2-1.0) mg/dL AST (15-37) U/L ALT (12-78) U/L Alkaline Phosphatase (45-117) U/L Total Creatine Kinase (39-308) U/L Troponin I (0.02-0.05) ng/mL B-Natriuretic Peptide 200 H (0-100) pg/mL Total Protein (6.4-8.2) g/dL Albumin (3.4-5.0) g/dL Imaging Data Attestation: I personally reviewed and interpreted this imaging study as follows : Radiologist's impression: Chest X-Ray 07/23/18 13:18 CONCLUSION: Bibasilar airspace opacities, new since the prior study. The appearance could represent pulmonary edema in the appropriate clinical setting. Discharge Plan Discharge Disposition Patient Disposition: 30 Still Patient Discharge Condition Condition: Stable Discharge Details Diagnosis: Acute exacerbation of chronic obstructive airways disease, Elevated troponin, Pulmonary infiltrate, Atrial flutter, History of left bundle branch block (LBBB) Physicians Team ED Provider: Luisa Huerta Primary Care Provider: Primary Care Amanda Up Rxs /Orders / Referrals /Forms Prescriptions: No Action furosemide [Lasix] 20 mg Tablet 20 mg PO DAILY RF: 0 potassium chloride 20 mEq Tablet Extended Release 10 meq PO DAILY RF: 0 aspirin [Aspirin Low Dose] 81 mg Tablet,Delayed Release (Dr/Ec) 81 mg PO DAILY RF: 0 doxazosin 4 mg Tablet 4 mg PO DAILY RF: 0 gabapentin 100 mg Capsule 100 mg PO TID RF: 0 finasteride 5 mg Tablet 5 mg PO DAILY RF: 0 brimonidine 0.2 % Drops 1 drp OPHTHALMIC (EYE) BID RF: 0 methimazole 5 mg Tablet 5 mg PO DAILY RF: 0 budesonide-formoterol 160-4.5 mcg/actuation Hfa Aerosol Inhaler 2 puff INHALATION BID RF: 0 tramadol 50 mg Tablet 50 mg PO QID RF: 0 ipratropium-albuterol 0.5 mg-3 mg(2.5 mg base)/3 mL Solution For Nebulization 1 amp NEB Q4HR NEB RF: 0 alprazolam [Xanax] 0.25 mg Tablet 0.25 mg PO Q12H PRN (Reason: Anxiety) Qty: 20 RF: 0 Status ED Status: Admitted Patient
[2018-07-23 13:53] LABS: Baso % (Auto) 0.8 % (0.0-2.0); Eos % (Auto) 0.5 % (0.0-4.0); Hematocrit 43.1 % (39.0-51.0); Hemoglobin 14.4 gm/dL (13.0-17.0); Lymph # (Auto) 0.5 th/mm3 (1.0-4.8); Lymph % (Auto) 7.2 % (9.0-44.0); Mean Corpuscular HGB Conc 33.4 % (32.0-36.0); Mean Corpuscular Hemoglobin 33.9 pg (27.0-34.0); Mean Corpuscular Volume 101.4 fL (80.0-100.0); Mean Platelet Volume 8.6 fL (7.0-11.0); Mono # (Auto) 0.7 th/mm3 (0.0-0.9); Mono % (Auto) 10.6 % (0.0-8.0); Neut # (Auto) 5.1 th/mm3 (1.8-7.7); Neut % (Auto) 80.9 % (16.0-70.0); Platelet Count 166 th/mm3 (150-450); Red Blood Count 4.24 mil/mm3 (4.50-5.90); Red Cell Distribution Width 12.5 % (11.6-17.2); White Blood Count 6.3 th/mm3 (4.0-11.0)
--- NOTE | 2018-07-23 13:56 | XR ---
EXAM DATE: 07/23/2018 1:53 PM EDT AGE/SEX: 87 years / Male INDICATIONS: Short of breath. CLINICAL DATA: This is the patient's initial encounter. Patient reports that signs and symptoms have been present for 1 day and indicates a pain score of Nonresponsive. MEDICAL/SURGICAL HISTORY: Non-responsive. Non-responsive. COMPARISON: [facility] [place], CHEST 1V SINGLE AP, 06/21/2018. . FINDINGS: 2 AP views of the chest demonstrate a normal-sized cardiac silhouette. Multiple EKG lines overlie the patient. There is mild bibasilar interstitial and airspace opacity, right greater than left. No pneu mothorax is identified. The bones and soft tissues demonstrate no acute finding. CONCLUSION: Bibasilar airspace opacities, new since the prior study. The appearance could represent pulmonary taryn ma in the appropriate clinical setting. Electronically signed by: Eduard Cardoso MD 07/23/2018 1:55 PM EDT
[2018-07-23] MEDS ORDERED: Azithromycin Inj 500 MG in Sodium Chlor 0.9% Inj 250 ML IV.SIG ONE (13:59)
[2018-07-23] MEDS ORDERED: Piperacil/Tazo 4.5 GM Premix 4.5 GM/100 ML BAG IV.SIG ONE (13:59)
[2018-07-23 14:04] LABS: Activated Partial Thrombo Time 25.3 sec (24.3-30.1); INR 1.1 Ratio; Prothrombin Time 11.6 sec (9.8-11.6)
[2018-07-23 14:13] LABS: Alanine Aminotransferase 33 U/L (12-78); Albumin 3.5 g/dL (3.4-5.0); Anion Gap 9 meq/L (5-15); Aspartate Aminotransferase 21 U/L (15-37); Blood Urea Nitrogen 17 mg/dL (7-18); Calcium 8.6 mg/dL (8.5-10.1); Carbon Dioxide 29.4 meq/L (21.0-32.0); Chloride 103 meq/L (98-107); Glomerular Filtration Rate 78 mL/min (>89); Glucose,Random 99 mg/dL (74-106); Magnesium 2.2 mg/dL (1.5-2.5); Potassium 4.1 meq/L (3.5-5.1); Sodium 141 meq/L (136-145)
[2018-07-23 14:19] LABS: Alkaline Phosphatase 73 U/L (45-117); Total Protein 6.4 g/dL (6.4-8.2); Troponin I 0.29 ng/mL (0.02-0.05)
[2018-07-23 14:20] LABS: Creatine Kinase 97 U/L (39-308)
[2018-07-23] MEDS ORDERED: Aspirin 325 MG Tablet PO ONE (15:04)
--- NOTE | 2018-07-23 15:36 | P.HPIM ---
History of Present Illness Primary Care Physician: No Primary Care Physician History of Present Illness: 87 year old male with history of oxygen-dependent COPD, CAD, and prostate cancer presented to the ED via [facility] for sudden onset shortness of breath. The patient reports this morning when he got up to go to the restroom he suddenly became very dyspneic to the point where he could not get off the commode for about 45 minutes. He states he was too short of breath to even make a phone call. When he was finally able to catch his breath he gave himself a breathing treatment with some relief. He states he checked his oxygen and it was 74%. He states he also took his temperature and it was 99.8 which is high for him because he states he is always below 98. He is on 2L nasal cannula . He states he had no chest pain, dizziness, lightheadedness, or syncope during this time. He has had no significant cough recently. When [facility] arrived they confirmed his O2 sats in the 70s despite 2L of his home O2. He was placed on 4L and given an additional breathing treatment. His heart rate was reportedly in the high 100s and he was given IV Cardizem. During my encounter he reports feeling a little better but still having difficulty catching his breath at rest. He was recently hospitalized for a COPD exacerbation 06/21-06/23 where he was discharged with home O2 (was previously not oxygen-dependent). He states since he was discharged from the hospital he has had some swelling and mild erythema of his extremities especially his RLE which is more pronounced. He attributed this to the prednisone. Patient is accompanied by his niece who is also his POA. She states that he also has significant anxiety and requests his home Xanax be restarted. He follows with Dr. Stovall (pulm) and Dr. Decker ([facility]). - Diagnosis (1) Pneumonia (2) COPD exacerbation Inpatient Certification: I certify that the inpatient services were ordered in accordance with Medicare regulations governing the order. This includes certification that hospital inpatient services are reasonable and necessary and in the case of services not specified as inpatient-only under 42 CFR 419.22(n), that they are appropriately provided as inpatient services in accordance to with the 2-midnight benchmark under 43 CFR 412.3(e) Estimated Total Length of Stay (Days): 2 Plans for Post Hospital Care: Not yet determined Review of Systems Constitutional: Reports chills, Reports fever(s) Eyes: Reports blurry vision Ears, Nose, Mouth, and Throat: Reports hearing loss Cardiovascular: Reports leg swelling (R>L), Denies chest pain, Denies fainting, Denies fast heart rate, Denies irregular heart rhythm [facility] - History History Provided By: Patient - Medical History Medical History: Medical History (Last Reviewed 07/23/18 @ 13:34 by Luisa Huerta MD) Emphysema of lung Anxiety BPH (benign prostatic hyperplasia) Olivares's esophagus COPD (chronic obstructive pulmonary disease) Degeneration of intervertebral disc Diverticular disease of colon Glaucoma Hemorrhoids History of prostate cancer Myocardial infarct, old Osteoarthritis Polyp of colon Sensorineural hearing loss (SNHL) of both ears Shoulder pain Stenosis of rectum and anus Thyrotoxicosis with or without goiter - Surgical History Surgical History: Surgical History (Last Updated 07/23/18 @ 16:08 by Claudine Hayes MD) History of appendectomy Hx of cholecystectomy S/P TURP - Family History Family History: Family History (Last Updated 07/23/18 @ 16:08 by Claudine Hayes MD) Father Heart disease Mother Colon cancer - Tobacco History Second Hand Smoke Exposure: No Smoking Status: Former smoker (Quit smoking 1989) Tobacco Type: Cigarettes - Alcohol History How Often Do You Have a Drink Containing Alcohol: Never - Substance Use History Substance History: No History of Abuse - Travel History Recent Travel in the [place] Within the Last 8 Weeks: No Recent Travel Out of the Country Within the Last 8 Weeks: No - Immunization History Tetanus Immunization: <5 Years Tetanus Immunization Year if Known: 2012 Medications and Allergies Allergies Allergy/AdvReac Type Severity Reaction Status Date / Time codeine Allergy Severe Irritabilit Verified 07/23/18 13:22 y/Anxiety diclofenac Allergy Severe Rash Verified 07/23/18 13:22 neomycin Allergy Intermediate Rash Verified 07/23/18 13:22 Home Medications Medication Instructions Recorded Confirmed Type aspirin [Aspirin Low Dose] 81 mg PO DAILY 06/21/18 07/23/18 History brimonidine 1 drp OPHTHALMIC (EYE) BID 06/21/18 07/23/18 History budesonide-formoterol 2 puff INHALATION BID 06/21/18 07/23/18 History doxazosin 4 mg PO DAILY 06/21/18 07/23/18 History finasteride 5 mg PO DAILY 06/21/18 07/23/18 History gabapentin 100 mg PO TID 06/21/18 07/23/18 History methimazole 5 mg PO DAILY 06/21/18 07/23/18 History tramadol 50 mg PO QID 06/21/18 07/23/18 History furosemide [Lasix] 20 mg PO DAILY 07/23/18 07/23/18 History potassium chloride 10 meq PO DAILY 07/23/18 07/23/18 History Exam Vital signs: Vital Signs 07/23/18 13:18 07/23/18 13:21 07/23/18 13:41 Temperature 99.3 F Pulse Rate 86 91 H Respiratory Rate 17 16 Blood Pressure 111/58 L Pulse Oximetry 95 95 07/23/18 13:42 07/23/18 15:13 Temperature Pulse Rate 90 78 Respiratory Rate 16 20 Blood Pressure 112/62 Pulse Oximetry 94 L Intake & Output 07/22/18 07/23/18 07/23/18 18:59 06:59 18:59 Weight 168 kg Narrative: GENERAL: WN, WD pleasant male resting in bed in [facility]. SKIN: Warm and dry. HEENT: AT/NC. Pupils equal and round. MMM. NECK: Supple no tender LAD or JVD. HEART: Tachycardic with no appreciable murmurs. LUNGS: Nasal cannula in place on 3L. Mildly increased work of breathing. Diminished breath sounds with scattered wheezing. No appreciable crackles. ABDOMEN: +BS, soft, NT, ND. EXTREMITIES: B/L LE edema, R>L. There is some mild bilateral erythema around the feet and distal legs. No warmth or wounds. Both calves are supple and nontender. NEURO: Awake and alert. Hard of hearing. PSYCH: Appropriate mood and affect. Results - Labs CBC & Chem 7: 07/23/18 13:26 07/23/18 13:26 Labs: Short CBC 07/23/18 Range/Units 13:26 WBC 6.3 (4.0-11.0) th/mm3 Hgb 14.4 (13.0-17.0) gm/dL Hct 43.1 (39.0-51.0) % Plt Count 166 (150-450) th/mm3 BMP 07/23/18 13:26 Sodium 141 Potassium 4.1 Chloride 103 Carbon Dioxide 29.4 BUN 17 Creatinine 0.91 Calcium 8.6 Cardiac Enzymes 07/23/18 Range/Units 13:26 Total Creatine Kinase 97 (39-308) U/L Troponin I 0.29 H (0.02-0.05) ng/mL Liver Function 07/23/18 Range/Units 13:26 Total Bilirubin 0.7 (0.2-1.0) mg/dL AST 21 (15-37) U/L ALT 33 (12-78) U/L Alkaline Phosphatase 73 (45-117) U/L Albumin 3.5 (3.4-5.0) g/dL - Imaging Impressions Chest X-Ray 07/23/18 13:18 CONCLUSION: Bibasilar airspace opacities, new since the prior study. The appearance could represent pulmonary edema in the appropriate clinical setting. Caprini VTE Risk Assessment Caprini VTE Risk Assessment: Moderate/High Risk (score >= 2) Caprini Risk Assessment Model: Point Value = 1 Point Value = 2 Point Value = 3 Point Value = 5 Age 41-60 Minor surgery BMI > 25 kg/m2 Swollen legs Varicose veins or History of unexplained or recurrent spontaneous Oral contraceptives or hormone replacement Sepsis (< 1 month) Serious lung disease, including pneumonia (< 1 month) Abnormal pulmonary function Acute myocardial infarction Congestive heart failure (< 1 month) History of inflammatory bowel disease Medical patient at bed rest Age 61-74 Arthroscopic surgery Major open surgery (> 45 min) Laparoscopic surgery (> 45 min) Malignancy Confined to bed (> 72 hours) Immobilizing plaster cast Central venous access Age >= 75 History of VTE Family history of VTE Factor V Leiden Prothrombin [id number] Lupus anticoagulant Anticardiolipin antibodies Elevated serum homocysteine Heparin-induced thrombocytopenia Other congenital or acquired thrombophilia Stroke (< 1 month) Elective arthroplasty Hip, pelvis, or leg fracture Acute spinal cord injury (< 1 month) Prophylaxis Regimen: Total Risk Factor Score Risk Level Prophylaxis Regimen 0-1 Low Early ambulation 2 Moderate Order ONE of the following: *Sequential Compression Device (SCD) *Heparin 5000 units SQ BID 3-4 Higher Order ONE of the following medications: *Heparin 5000 units SQ TID *Enoxaparin/Lovenox 40 mg SQ daily (WT < 150 kg, CrCl > 30 mL/min) *Enoxaparin/Lovenox 30 mg SQ daily (WT < 150 kg, CrCl > 10-29 mL/min) *Enoxaparin/Lovenox 30 mg SQ BID (WT < 150 kg, CrCl > 30 mL/min) AND/OR *Sequential Compression Device (SCD) 5 or more Highest Order ONE of the following medications: *Heparin 5000 units SQ TID (Preferred with Epidurals) *Enoxaparin/Lovenox 40 mg SQ daily (WT < 150 kg, CrCl > 30 mL/min) *Enoxaparin/Lovenox 30 mg SQ daily (WT < 150 kg, CrCl > 10-29 mL/min) *Enoxaparin/Lovenox 30 mg SQ BID (WT < 150 kg, CrCl > 30 mL/min) AND *Sequential Compression Device (SCD) Assessment and Plan - Assessment (1) Pneumonia Code(s): J18.9 - Pneumonia, unspecified organism Status: Acute (2) COPD exacerbation Code(s): J44.1 - Chronic obstructive pulmonary disease with (acute) exacerbation Status: Acute - Plan 87 year old male with history of oxygen-dependent COPD, CAD, and prostate cancer presented to the ED via [facility] for sudden onset shortness of breath. 1. Shortness of breath - Well's score elevated at 7.5 - Will check CTA chest to evaluate for PE but given elevated Well's score will start heparin drip - CXR showing bibasilar airspace opacities, R>L per my read. Clinically he doesn 't have crackles and will therefore treat as pneumonia (see below) and possible PE - Supplemental O2 - Check 2D echo 2. Pneumonia - Since recently hospitalized will treat with Zosyn and Azithro for HCAP - Check sputum cultures - Check urine legionella and pneumococcal - Tylenol PRN fever 3. COPD exacerbation - Secondary to above - Antibiotics as above - SoluMedrol 40 mg IV Q12 - DuoNeb Q4H scheduled - Albuterol PRN 4. CAD - Concern for ACS given acute onset shortness of breath and elevation of troponin at 0.29 - EKG with ST-elevation and LBBB though essentially unchanged from prior EKG - Starting heparin drip for possible PE/ACS - Monitor serial enzymes and EKGs - Continue home ASA - Start low-dose carvedilol - Check 2D echo - Consult cardiology for further eval 5. History of prostate cancer - Continue home finasteride and doxazosin DVT prophylaxis: Heparin gtt Code Status: Full Discussed Condition With: Patient, ED physician
[2018-07-23] MEDS ORDERED: Acetaminophen 325 MG Tablet PO PRN (15:57)
[2018-07-23] MEDS ORDERED: Bisacodyl 10 MG Supp RECTAL PRN (15:57)
--- NOTE | 2018-07-23 18:04 | US ---
EXAM DATE: 07/23/2018 5:59 PM EDT AGE/SEX: 87 years / Male INDICATIONS: Right leg swelling. CLINICAL DATA: This is the patient's initial encounter. Patient reports that signs and symptoms have been present for 1 week and indicates a pain score of 2/10. MEDICAL/SURGICAL HISTORY: . Anxiety. Barretts esophagus. Benign prostatic hyperplasia. Myocardi al infarction. Emphysema. Osteoarthritis. Shoulder pain. Goiter. Appendectomy. Cholecystectomy. TUR P. COMPARISON: No prior exams available for comparison. TECHNIQUE: Venous ultrasound of both lower extremities was performed from the inguinal ligament to t he proximal calf. Real-time, color Doppler and spectral tracing, compression and augmentation techni ques were used. FINDINGS: Normal compression of the deep venous system from the inguinal region to the proximal calf . No echogenic clot is seen. Normal response of the venous system to augmentation and respiration. CONCLUSION: The study is negative for lower extremity deep venous thrombosis. Electronically signed by: Eduard Angel MD 07/23/2018 6:03 PM EDT
[2018-07-23] MEDS ORDERED: Morphine Inj 4 MG/ML Vial IV.PUSH PRN (18:09)
[2018-07-23 18:14] LABS: Bilirubin,Urine Negative (Negative); Clarity,Urine Clear (Clear); Color,Urine Yellow (Yellw/Straw); Glucose,Urine (UA) Negative (Negative); Leukocyte Esterase,Urine Negative (Negative); Mucus,Urine Few /lpf (Occasional); Nitrite,Urine Negative (Negative); Specific Gravity,Urine 1.009 (1.002-1.035); Squamous Epithelial Cell,Urine <1 /hpf (0-5)
[2018-07-23] MEDS ORDERED: Heparin 10,000 UNITS/10 ML Vial (for IV use) IV.PUSH STA (18:24)
--- NOTE | 2018-07-23 18:33 | CT ---
EXAM DATE: 07/23/2018 6:25 PM EDT AGE/SEX: 87 years / Male INDICATIONS: Shortness of breath. CLINICAL DATA: This is the patient's initial encounter. Patient reports that signs and symptoms have been present for 1 day and indicates a pain score of 0/10. MEDICAL/SURGICAL HISTORY: Chronic obstructive pulmonary disease. Myocardial infarction. None. RADIATION DOSE: 8.62 CTDI (mGy) COMPARISON: No prior exams available for comparison. TECHNIQUE: Volumetric scanning was performed using a multi-row detector CT scanner during bolus infu corina of 75 ml Omnipaque 350 (iohexol) nonionic water-soluble contrast as a single exam dose. The magali a was post processed with a variety of visualization algorithms including full volume maximum intensi ty projection and sliding thin slab reformation. Using automated exposure control and adjustment of t he mA and/or kV according to patient size, radiation dose was kept as low as reasonably achievable to obtain optimal diagnostic quality images. DICOM format image data is available electronically for r eview and comparison. FINDINGS: Pulmonary Arteries: No filling defects are seen in the pulmonary arteries out to the subsegmental ve ssels. The left and right pulmonary arteries are normal in diameter. Lung: Lungs are hyperinflated. There is advanced emphysematous changes. Mild generalized groundglass opacity with interstitial prominence is identified in the nonedematous parts of the lung. Mild subse gmental airspace disease is identified in the lingula. Effusion: Small bilateral effusions are noted. Mediastinum: Heart is normal size however coronary arteries are heavily calcified. Other: The axilla is unremarkable. CONCLUSION: 1. COPD with mild subsegmental airspace disease in the lingula. 2. No evidence of pulmonary embolism. 3. Mild background groundglass opacity with small bilateral effusions which may represent mild conge stive heart failure. 4. Calcified coronary arteries. Electronically signed by: Michele Noonan MD 07/23/2018 6:32 PM EDT
[2018-07-23] MEDS ORDERED: Heparin Drip 25,000 UNIT/250 ML BAG IV.CONT PRN ×3 (20:00→21:52)
[2018-07-23 20:05] LABS: Activated Partial Thrombo Time 25.4 sec (24.3-30.1); INR 1.1 Ratio; Prothrombin Time 11.4 sec (9.8-11.6)
[2018-07-23 20:22] LABS: Troponin I 0.36 ng/mL (0.02-0.05)
[2018-07-23] MEDS: MethylPREDNISolone Sod Succinate Inj 40 MG/ML Vial IV.PUSH SCH (20:44)
[2018-07-23] MEDS: Gabapentin 100 MG Capsule PO SCH (20:44)
[2018-07-23] MEDS: ALPRAZolam 0.25 MG Tablet PO PRN (20:44)
[2018-07-23] MEDS: Senna/Docusate Sodium 8.6/50 MG Tablet PO SCH (20:45)
[2018-07-23] MEDS ORDERED: Heparin - SQ 10,000 UNITS/ML Vial SQ SCH (21:00)
[2018-07-23] MEDS: Piperacil/Tazo 4.5 GM Premix 4.5 GM/100 ML BAG IV.SIG SCH (22:00)
[2018-07-24] MEDS: Brimonidine 0.2% Opth Drops 5 ML Bottle EACH EYE SCH ×3 (00:18→22:50)
[2018-07-24] MEDS ORDERED: Heparin 10,000 UNITS/10 ML Vial (for IV use) IV.PUSH PRN ×2 (00:31→01:11)
[2018-07-24] MEDS: Piperacil/Tazo 4.5 GM Premix 4.5 GM/100 ML BAG IV.SIG SCH ×4 (03:55→20:16)
[2018-07-24 03:59] LABS: Baso % (Auto) 0.1 % (0.0-2.0); Hematocrit 39.8 % (39.0-51.0); Hemoglobin 13.5 gm/dL (13.0-17.0); Lymph # (Auto) 0.3 th/mm3 (1.0-4.8); Lymph % (Auto) 7.1 % (9.0-44.0); Mean Corpuscular Hemoglobin 33.6 pg (27.0-34.0); Mean Corpuscular Volume 98.8 fL (80.0-100.0); Mean Platelet Volume 8.6 fL (7.0-11.0); Mono # (Auto) 0.1 th/mm3 (0.0-0.9); Mono % (Auto) 2.9 % (0.0-8.0); Neut # (Auto) 3.4 th/mm3 (1.8-7.7); Neut % (Auto) 89.9 % (16.0-70.0); Platelet Count 166 th/mm3 (150-450); Red Blood Count 4.03 mil/mm3 (4.50-5.90); Red Cell Distribution Width 12.7 % (11.6-17.2); White Blood Count 3.8 th/mm3 (4.0-11.0)
[2018-07-24 04:48] LABS: Calcium 8.3 mg/dL (8.5-10.1); Carbon Dioxide 30.9 meq/L (21.0-32.0); Potassium 3.8 meq/L (3.5-5.1)
[2018-07-24] MEDS ORDERED: Doxazosin 4 MG Tablet PO SCH (09:00)
[2018-07-24] MEDS ORDERED: Furosemide 20 MG Tablet PO SCH (09:00)
[2018-07-24] MEDS: Gabapentin 100 MG Capsule PO SCH ×3 (10:11→17:09)
[2018-07-24] MEDS: methIMAzole 5 MG Tablet PO SCH (10:12)
[2018-07-24] MEDS: Senna/Docusate Sodium 8.6/50 MG Tablet PO SCH ×2 (10:12→20:18)
[2018-07-24] MEDS: Finasteride 5 MG Tablet PO SCH (10:12)
[2018-07-24] MEDS: MethylPREDNISolone Sod Succinate Inj 40 MG/ML Vial IV.PUSH SCH ×2 (10:12→20:15)
[2018-07-24] MEDS: ALPRAZolam 0.25 MG Tablet PO PRN (11:09)
[2018-07-24 11:14] LABS: ABG Base Excess 4.2 mmol/L (-2-2); ABG PCO2 42 mmHg (38-42); ABG PO2 70 mmHg (61-120)
--- NOTE | 2018-07-24 11:29 | P.PN ---
Subjective Interval history: Nursing reports that the patient did not have any deteriorations last night. Respiratory therapist thinks that the patient is getting very labored. Patient himself says he is anxious and short of breath. Says he is compliant with his home Symbicort and Combivent. Says that his lower extremity edema has been going on for about 2-3 weeks. Physical Exam Vital signs: Vital Signs 07/23/18 13:18 07/23/18 13:21 07/23/18 13:41 Temperature 99.3 F Pulse Rate 86 91 H Respiratory Rate 17 16 Blood Pressure 111/58 L Pulse Oximetry 95 95 07/23/18 13:42 07/23/18 15:13 07/23/18 15:59 Temperature Pulse Rate 90 78 100 H Respiratory Rate 16 20 16 Blood Pressure 112/62 109/59 L Pulse Oximetry 94 L 94 L 07/23/18 16:00 07/23/18 17:37 07/23/18 19:25 Temperature 98.0 F Pulse Rate 131 H 100 H 110 H Respiratory Rate 16 16 Blood Pressure 144/107 H Pulse Oximetry 94 L 07/23/18 19:37 07/23/18 20:00 07/23/18 23:31 Temperature 98.3 F 98.2 F Pulse Rate 104 H 106 H 101 H Respiratory Rate 18 20 20 Blood Pressure 134/96 H 125/92 H Pulse Oximetry 94 L 94 L 95 07/23/18 23:45 07/23/18 23:52 07/24/18 03:04 Temperature Pulse Rate 100 H 78 86 Respiratory Rate 18 18 Blood Pressure Pulse Oximetry 07/24/18 04:00 07/24/18 04:02 07/24/18 05:06 Temperature 98.6 F Pulse Rate 103 H 114 H 87 Respiratory Rate 22 16 Blood Pressure 162/70 H Pulse Oximetry 96 07/24/18 07:46 07/24/18 08:00 07/24/18 10:42 Temperature 97.9 F Pulse Rate 114 H 54 L 114 H Respiratory Rate 25 H 14 25 H Blood Pressure 117/76 Pulse Oximetry 92 L 98 Intake & Output 07/23/18 07/24/18 07/24/18 18:59 06:59 18:59 Intake Total 350 / 350 200 / 200 150 / 150 Output Total 100 / 100 Balance 350 / 350 100 / 100 150 / 150 Weight 168 kg 75.7 kg Intake: IV 350 / 350 200 / 200 150 / 150 Heparin/D5W 25,000 U/250 mL 25, 50 / 50 000 unit In 250 ml @ 9 mls/hr IV.CONT TITRATE PRN Rx#: [id number] Azithromycin Inj 500 MG In NS 250 / 250 Inj 250 ML @ 250 mls/hr IV.SIG ONCE ONE Rx#:[id number] Zosyn 4.5 GM Premix 4.5 gm In 100 / 100 200 / 200 100 / 100 100 ml @ 200 mls/hr IV.SIG Q6H IRENA Rx#:[id number] Output: Urine 100 / 100 Other: # Voids 2 Date of Last Bowel Movement 07/24/18 Narrative: Very faint expiratory wheezing heard Diminished breath sounds at the bases Labored breathing with very short expiratory phases On nasal cannula Is able to speak one sentence at a time Results - Labs CBC & Chem 7: 07/24/18 03:37 07/24/18 03:37 Laboratory Results - last 24 hr 07/23/18 07/23/18 07/23/18 13:26 13:26 13:26 WBC 6.3 Corrected WBC RBC 4.24 L Hgb 14.4 Hct 43.1 MCV 101.4 H MCH 33.9 MCHC 33.4 RDW 12.5 Plt Count 166 MPV 8.6 Neut % (Auto) 80.9 H Lymph % (Auto) 7.2 L [place] % (Auto) 10.6 H Eos % (Auto) 0.5 Baso % (Auto) 0.8 Neut # (Auto) 5.1 Lymph # (Auto) 0.5 L [place] # (Auto) 0.7 Eos # (Auto) 0.0 Baso # (Auto) 0.0 WBC Differential . Differential Comment Auto diff final Hematology Comments PT 11.6 INR 1.1 APTT 25.3 Puncture Site Patient Temperature O2 Saturation ABG pH ABG pCO2 ABG pO2 ABG HCO3 ABG O2 Content ABG Base Excess ABG Methemoglobin Juan Test Hemoglobin Carboxyhemoglobin O2 Delivery Device Liter Flow Inspired O2 Critical Value Sodium 141 Potassium 4.1 Chloride 103 Carbon Dioxide 29.4 Anion Gap 9 BUN 17 Creatinine 0.91 Estimated GFR 78 L Random Glucose 99 Lactic Acid Calcium 8.6 Magnesium 2.2 Total Bilirubin 0.7 AST 21 ALT 33 Alkaline Phosphatase 73 Total Creatine Kinase 97 Troponin I 0.29 H B-Natriuretic Peptide Total Protein 6.4 Albumin 3.5 Procalcitonin Urine Color Urine Clarity Urine pH Ur Specific [place] Urine Protein Urine Glucose (UA) Urine Ketones Urine Occult Blood Urine Nitrate Urine Bilirubin Urine Urobilinogen Ur Leukocyte Esterase Urine RBC Urine WBC Ur Squamous Epith Cells Urine Mucus Micro UA Comment Ur Microscopic Review Urine Culture Comments 07/23/18 07/23/18 07/23/18 13:26 13:26 17:23 WBC Corrected WBC RBC Hgb Hct MCV MCH MCHC RDW Plt Count MPV Neut % (Auto) Lymph % (Auto) [place] % (Auto) Eos % (Auto) Baso % (Auto) Neut # (Auto) Lymph # (Auto) [place] # (Auto) Eos # (Auto) Baso # (Auto) WBC Differential Differential Comment Hematology Comments PT INR APTT Puncture Site Patient Temperature O2 Saturation ABG pH ABG pCO2 ABG pO2 ABG HCO3 ABG O2 Content ABG Base Excess ABG Methemoglobin Juan Test Hemoglobin Carboxyhemoglobin O2 Delivery Device Liter Flow Inspired O2 Critical Value Sodium Potassium Chloride Carbon Dioxide Anion Gap BUN Creatinine Estimated GFR Random Glucose Lactic Acid 1.5 Calcium Magnesium Total Bilirubin AST ALT Alkaline Phosphatase Total Creatine Kinase Troponin I B-Natriuretic Peptide 200 H Total Protein Albumin Procalcitonin Urine Color Yellow Urine Clarity Clear Urine pH 5.0 Ur Specific [place] 1.009 Urine Protein Negative Urine Glucose (UA) Negative Urine Ketones Trace Urine Occult Blood Negative Urine Nitrate Negative Urine Bilirubin Negative Urine Urobilinogen Less than 2 Ur Leukocyte Esterase Negative Urine RBC 3 Urine WBC 1 Ur Squamous Epith Cells <1 Urine Mucus Few H Micro UA Comment Culture not ind Ur Microscopic Review Not Reportable Urine Culture Comments Culture not ind 07/23/18 07/23/18 07/23/18 19:12 19:12 19:12 WBC Corrected WBC RBC Hgb Hct MCV MCH MCHC RDW Plt Count MPV Neut % (Auto) Lymph % (Auto) [place] % (Auto) Eos % (Auto) Baso % (Auto) Neut # (Auto) Lymph # (Auto) [place] # (Auto) Eos # (Auto) Baso # (Auto) WBC Differential Differential Comment Hematology Comments PT 11.4 INR 1.1 APTT 25.4 Puncture Site Patient Temperature O2 Saturation ABG pH ABG pCO2 ABG pO2 ABG HCO3 ABG O2 Content ABG Base Excess ABG Methemoglobin Juan Test Hemoglobin Carboxyhemoglobin O2 Delivery Device Liter Flow Inspired O2 Critical Value Sodium Potassium Chloride Carbon Dioxide Anion Gap BUN Creatinine Estimated GFR Random Glucose Lactic Acid Calcium Magnesium Total Bilirubin AST ALT Alkaline Phosphatase Total Creatine Kinase 120 Troponin I 0.36 H B-Natriuretic Peptide Total Protein Albumin Procalcitonin 0.11 H Urine Color Urine Clarity Urine pH Ur Specific [place] Urine Protein Urine Glucose (UA) Urine Ketones Urine Occult Blood Urine Nitrate Urine Bilirubin Urine Urobilinogen Ur Leukocyte Esterase Urine RBC Urine WBC Ur Squamous Epith Cells Urine Mucus Micro UA Comment Ur Microscopic Review Urine Culture Comments 07/24/18 07/24/18 07/24/18 00:05 00:05 03:37 WBC 3.8 L Corrected WBC RBC 4.03 L Hgb 13.5 Hct 39.8 MCV 98.8 MCH 33.6 MCHC 34.0 RDW 12.7 Plt Count 166 MPV 8.6 Neut % (Auto) 89.9 H Lymph % (Auto) 7.1 L [place] % (Auto) 2.9 Eos % (Auto) 0.0 Baso % (Auto) 0.1 Neut # (Auto) 3.4 Lymph # (Auto) 0.3 L [place] # (Auto) 0.1 Eos # (Auto) 0.0 Baso # (Auto) 0.0 WBC Differential . Differential Comment Auto diff final Hematology Comments PT INR APTT 66.7 H D Puncture Site Patient Temperature O2 Saturation ABG pH ABG pCO2 ABG pO2 ABG HCO3 ABG O2 Content ABG Base Excess ABG Methemoglobin Juan Test Hemoglobin Carboxyhemoglobin O2 Delivery Device Liter Flow Inspired O2 Critical Value Sodium Potassium Chloride Carbon Dioxide Anion Gap BUN Creatinine Estimated GFR Random Glucose Lactic Acid Calcium Magnesium Total Bilirubin AST ALT Alkaline Phosphatase Total Creatine Kinase Troponin I 0.33 H B-Natriuretic Peptide Total Protein Albumin Procalcitonin Urine Color Urine Clarity Urine pH Ur Specific [place] Urine Protein Urine Glucose (UA) Urine Ketones Urine Occult Blood Urine Nitrate Urine Bilirubin Urine Urobilinogen Ur Leukocyte Esterase Urine RBC Urine WBC Ur Squamous Epith Cells Urine Mucus Micro UA Comment Ur Microscopic Review Urine Culture Comments 07/24/18 07/24/18 07/24/18 03:37 03:37 03:37 WBC Cancelled Corrected WBC Cancelled RBC Cancelled Hgb Cancelled Hct Cancelled MCV Cancelled MCH Cancelled MCHC Cancelled RDW Cancelled Plt Count Cancelled MPV Cancelled Neut % (Auto) Lymph % (Auto) [place] % (Auto) Eos % (Auto) Baso % (Auto) Neut # (Auto) Lymph # (Auto) [place] # (Auto) Eos # (Auto) Baso # (Auto) WBC Differential Differential Comment Hematology Comments Cancelled PT INR APTT 49.7 H D Puncture Site Patient Temperature O2 Saturation ABG pH ABG pCO2 ABG pO2 ABG HCO3 ABG O2 Content ABG Base Excess ABG Methemoglobin Juan Test Hemoglobin Carboxyhemoglobin O2 Delivery Device Liter Flow Inspired O2 Critical Value Sodium 145 Potassium 3.8 Chloride 105 Carbon Dioxide 30.9 Anion Gap 9 BUN 19 H Creatinine 0.84 Estimated GFR 86 L Random Glucose 126 H Lactic Acid Calcium 8.3 L Magnesium Total Bilirubin AST ALT Alkaline Phosphatase Total Creatine Kinase Troponin I B-Natriuretic Peptide Total Protein Albumin Procalcitonin Urine Color Urine Clarity Urine pH Ur Specific [place] Urine Protein Urine Glucose (UA) Urine Ketones Urine Occult Blood Urine Nitrate Urine Bilirubin Urine Urobilinogen Ur Leukocyte Esterase Urine RBC Urine WBC Ur Squamous Epith Cells Urine Mucus Micro UA Comment Ur Microscopic Review Urine Culture Comments 07/24/18 07/24/18 10:58 11:05 WBC Corrected WBC RBC Hgb Hct MCV MCH MCHC RDW Plt Count MPV Neut % (Auto) Lymph % (Auto) [place] % (Auto) Eos % (Auto) Baso % (Auto) Neut # (Auto) Lymph # (Auto) [place] # (Auto) Eos # (Auto) Baso # (Auto) WBC Differential Differential Comment Hematology Comments PT INR APTT 29.6 D Puncture Site Right radial Patient Temperature 98.6 O2 Saturation 90 ABG pH 7.45 H ABG pCO2 42 ABG pO2 70 ABG HCO3 28 H ABG O2 Content 18.8 ABG Base Excess 4.2 H ABG Methemoglobin 1.0 Juan Test Present Hemoglobin 14.9 Carboxyhemoglobin 1.6 O2 Delivery Device Nasal cannula Liter Flow 4.00 Inspired O2 21 Critical Value No Sodium Potassium Chloride Carbon Dioxide Anion Gap BUN Creatinine Estimated GFR Random Glucose Lactic Acid Calcium Magnesium Total Bilirubin AST ALT Alkaline Phosphatase Total Creatine Kinase Troponin I B-Natriuretic Peptide Total Protein Albumin Procalcitonin Urine Color Urine Clarity Urine pH Ur Specific [place] Urine Protein Urine Glucose (UA) Urine Ketones Urine Occult Blood Urine Nitrate Urine Bilirubin Urine Urobilinogen Ur Leukocyte Esterase Urine RBC Urine WBC Ur Squamous Epith Cells Urine Mucus Micro UA Comment Ur Microscopic Review Urine Culture Comments Microbiology 07/23/18 13:25 Blood - Peripheral Aerobic Blood Culture - Preliminary No growth in 1 day 07/23/18 13:25 Blood - Peripheral Anaerobic Blood Culture - Preliminary No growth in 1 day 07/23/18 13:20 Blood - Peripheral Aerobic Blood Culture - Preliminary No growth in 1 day 07/23/18 13:20 Blood - Peripheral Anaerobic Blood Culture - Preliminary No growth in 1 day 07/23/18 17:23 Urine - Clean Catch Urine Legionella Antigen - Final Presumptive negative for Legionella pneumophila serogroup 1 antigen in urine, suggesting no recent or recurrent infection. Infection due to Legionella cannot be ruled out since other serogroups and species may cause disease, antigen may not be present in urine in early infection, and the level of antigen present in the urine may be below the detection limit of the test. 07/23/18 17:23 Urine - Clean Catch Urine Streptococcus pneumoniae Antigen ( M - Final Presumptive negative for streptococcus pneumoniae antigen, suggesting no current or recent infection. Infection due to Streptococcus pneumoniae cannot be ruled out since the antigen present in the sample may be below the detection limit of the test. 07/23/18 13:29 Nasal Wash Influenza Types A,B Antigen - Final Negative for FLU A and B antigen Infection due to influenza A or B cannot be ruled out since the antigen present in the sample may be below the detection limit of the test. - Imaging Impressions Chest CTA 07/23/18 00:00 CONCLUSION: 1. COPD with mild subsegmental airspace disease in the lingula. 2. No evidence of pulmonary embolism. 3. Mild background groundglass opacity with small bilateral effusions which may represent mild congestive heart failure. 4. Calcified coronary arteries. Venous Doppler Study 07/23/18 00:00 CONCLUSION: The study is negative for lower extremity deep venous thrombosis. Chest X-Ray 07/23/18 13:18 CONCLUSION: Bibasilar airspace opacities, new since the prior study. The appearance could represent pulmonary edema in the appropriate clinical setting. Assessment and Plan - Assessment (1) Pneumonia Code(s): J18.9 - Pneumonia, unspecified organism Status: Acute (2) COPD exacerbation Code(s): J44.1 - Chronic obstructive pulmonary disease with (acute) exacerbation Status: Acute - Plan 87 year old male with history of oxygen-dependent COPD, CAD, and prostate cancer presented to the ED via [facility] for sudden onset shortness of breath. Acute on chronic respiratory failure Shortness of breath COPD exacerbation -CTA is negative for PE, per my independent review I see very mild ground glass haziness diffusely but no focal obvious infiltrates otherwise, does have mild bilateral pleural effusions - Supplemental O2 - Check 2D echo which is pending -We will increase Solu-Medrol dosing -Upgrade Lasix from p.o. to twice daily 40 IV -ABG performed which shows normal gases but on 4 L, will transfer to ICU and monitor more closely - continue abx CAD - Concern for ACS given acute onset shortness of breath and elevated troponins - EKG with ST-elevation and LBBB though essentially unchanged from prior EKG - heparin drip for possible ACS, awaiting cards input - Monitor serial enzymes and EKGs - Continue home ASA - low-dose carvedilol History of prostate cancer - Continue home finasteride and doxazosin
[2018-07-24] MEDS ORDERED: Etomidate Inj 40 MG/20 ML Vial IV.PUSH ONE (11:51)
[2018-07-24] MEDS ORDERED: Norepinephrine Inj 16 MG in Sodium Chlor 0.9% Inj 234 ML IV.CONT PRN (11:51)
[2018-07-24] MEDS ORDERED: Propofol 1000 mg/100 ml Inj 1,000 MG/100 ML BOTTLE IV.CONT PRN (11:51)
--- NOTE | 2018-07-24 12:00 | MB ---
cc: Geovani Stephens MD DATE: 07/24/2018 REASON FOR CONSULTATION: Elevated troponin. HISTORY OF PRESENT ILLNESS: The patient is a pleasant 87-year-old gentleman who sees my partner, Dr. Andrade, who has a history of severe oxygen dependent COPD. The patient was on the commode at home and was unable to catch his breath, so he was brought by ambulance to the hospital a clinical COPD exacerbation. He says he still is feeling shortness of breath with any minimal activity. He denies any chest pain, lightheadedness or syncope. PAST MEDICAL HISTORY: 1. COPD on home oxygen. 2. BPH. 3. Hypertension. CURRENT MEDICATIONS: 1. Coreg 3.125 mg b.i.d. 2. Lasix 20 mg daily. 3. Proscar 5 mg daily. 4. Neurontin. 5. Heparin drip (which has now been discontinued). ALLERGIES: CODEINE, DICLOFENAC, NEOMYCIN. PHYSICAL EXAMINATION: VITAL SIGNS: Afebrile, pulse 54, respiratory rate 25, BP 117/76, saturating 92 on 4 liters. GENERAL: Pleasant, elderly gentleman in no distress. NECK: No JVD. LUNGS: Severely decreased breath sounds in all alexander. CARDIOVASCULAR: Distant heart sounds, regular. No murmurs appreciated. ABDOMEN: Benign. EXTREMITIES: No edema. LABORATORY DATA: White count 3.8, hematocrit 39.8, platelets 166. Sodium 145, potassium 3.8, chloride 105, bicarbonate 3.9, BUN 19, creatinine 0.84, glucose 126. Troponins are flat at 0.29-0.36. EKG shows an atrial flutter with left bundle branch block, atrial flutter with left bundle branch block. Telemetry shows reasonably controlled rate, but sometimes in the low 100s. IMPRESSION: 1. Elevated troponin. The patient's elevated troponin is very nonspecific and likely due to chronic obstructive pulmonary disease exacerbation/hypoxia. He had no chest pain. I did offer an inpatient nuclear stress test, but he denies this workup at this time. 2. Atrial flutter. As far as I can tell, atrial flutter is a new diagnosis for the patient. He denies any knowledge of it or any history of being on anticoagulation. He denies any significant fall risk despite his age. Due to his stroke risk with the atrial flutter and other medical problems, I would fully anticoagulate him with Eliquis 5 mg b.i.d. given his normal creatinine and weight. I did discuss the risks and benefits of various types of anticoagulation. He chooses Eliquis. We will have him undergo an echocardiogram. I will also increase his rate control medications slightly. Further recommendations will be based on the above. Thank you again for the opportunity to participate in this patient's care. MD GILBERTO Shaffer/edgar , 10:04 AM , 10:12 AM
--- NOTE | 2018-07-24 12:13 | P.PCN ---
Date of procedure: 07/24/18 Pre-op diagnosis: Acute respiratory failure Post-op diagnosis: same Procedure: DATE: 07/24/2018 PROCEDURE: Orotracheal intubation INDICATION: Acute respiratory failure DETAILS OF PROCEDURE The patient was placed in optimal position and preoxygenated with 100% FiO2 via bag valve mask. At the start oxygen saturation was 98%. The patient was administered 20 milligrams etomidate IV and 50 milligrams rocuronium IV. I entered the oropharynx with a size 4 laryngoscope blade and obtained a grade 3 view of the airway. On single attempt a size 8.0 cuffed endotracheal tube was passed through the vocal cords. Correct tube location was confirmed with end tidal CO2 detector and by auscultating over bilateral lung alexander. The endotracheal tube was secured with adhesive tape at a depth of 24 cm at the lips. The patient was connected to the ventilator. The patient tolerated the procedure well without any apparent complications. Oxygen saturations were maintained greater than 95% all times. STAT chest x-ray pending at time of dictation.
--- NOTE | 2018-07-24 12:24 | P.CONCC ---
History of Present Illness Service: 07/24/2018 Consult date: 07/24/18 Requesting Physician: Sharath Miller Reason for Consult: Acute respiratory failure Primary Care Provider: No Primary Care Physician Family Provider: Unknown Chief Complaint: Shortness of breath History of Present Illness: This is an 87-year-old male. Full code. Admission 07/23/2018. Date of consultation 07/24/2018. Past medical history includes recent hospitalization 06/21-06/23 for COPD exacerbation for which he is 2 L nasal cannulae dependent as of 06/15, anxiety disorder, BPH, prostate cancer, essential hypertension, myocardial infarction, glaucoma, rectal/anal stenosis, diverticulosis, internal and external hemorrhoids, degenerative disease, emphysema seen by Dr. Stovall and known systolic heart failure ejection fraction around 40% followed by Dr. Andrade. Patient originally presented to [facility] via [facility] for sudden onset shortness of breath. The patient reports this morning when he got up to go to the restroom he suddenly became very dyspneic to the point where he could not get off the commode for about 45 minutes. His saturations are 74% but symptomatic include after receiving an albuterol/ipratropium aerosol treatment. His heart rate was reportedly in the high 100s and he was given IV diltiazem. Patient had a negative CT pulmonary comfort pulmonary embolism and lower extremity Dopplers for deep venous thrombosis. He is placed on a regimen of aggressive pulmonary toilet aerosolized medication therapy and IV methylprednisolone succinate. He remained in atrial fibrillation with rapid ventricular response the heart rate in the 100s. Troponin did bump from 0.36. Denies chest pain. Noted negative nuclear medicine scan 06/10 showing an old anteroseptal infarct. EF around 40%. No reversibility. Most recent pulmonary functions revealed F vital capacity 57% and FEV1 at 37%. Today, patient was transferred to ICU emergently for worsening respiratory failure. Discussed with patient electively intubated due to impending respiratory failure Review of Systems unobtainable due to endotracheal tube PMFSH - History History Provided By: Patient - Medical History Medical History: Medical History (Last Reviewed 07/24/18 @ 12:46 by Howard Guerra MD) Emphysema of lung Anxiety BPH (benign prostatic hyperplasia) Olivares's esophagus COPD (chronic obstructive pulmonary disease) Degeneration of intervertebral disc Diverticular disease of colon Glaucoma Hemorrhoids History of prostate cancer Myocardial infarct, old Osteoarthritis Polyp of colon Sensorineural hearing loss (SNHL) of both ears Shoulder pain Stenosis of rectum and anus Thyrotoxicosis with or without goiter - Surgical History Surgical History: Surgical History (Last Reviewed 07/24/18 @ 12:46 by Howard Guerra MD) History of appendectomy Hx of cholecystectomy S/P TURP - Family History Family History: Family History (Last Reviewed 07/24/18 @ 12:46 by Howard Guerra MD) Father Heart disease Mother Colon cancer - Tobacco History Second Hand Smoke Exposure: No Smoking Status: Former smoker (Quit smoking 1989) Tobacco Type: Cigarettes - Alcohol History How Often Do You Have a Drink Containing Alcohol: Never - Substance Use History Substance History: No History of Abuse - Travel History Recent Travel in the [place] Within the Last 8 Weeks: No Recent Travel Out of the Country Within the Last 8 Weeks: No - Immunization History Tetanus Immunization: <5 Years Tetanus Immunization Year if Known: 2012 Hx Influenza Vaccine This Season: Yes Medications and Allergies Active Medications: Active Medications Acetaminophen (Tylenol) 650 mg PO Q4H PRN PRN Reason: Temp > 100.4 Al Hydroxide/Mg Hydroxide (Milk Of Ammy Gamez) 30 ml PO Q12H PRN PRN Reason: Mild Constipation Albuterol (Duoneb Neb (Prn)) 1 ampul NEB Q2HR NEB PRN PRN Reason: SHORTNESS OF BREATH/WHEEZING Last Admin: 07/24/18 10:39 Dose: 1 ampul Albuterol (Duoneb Neb (Heydi)) 1 ampul NEB Q4HR NEB HEYDI Last Admin: 07/24/18 11:50 Dose: 1 ampul Alprazolam (Xanax) 0.25 mg PO Q12H PRN PRN Reason: Anxiety Last Admin: 07/24/18 11:09 Dose: 0.25 mg Apixaban (Eliquis) 5 mg PO BID [facility] Last Admin: 07/24/18 10:15 Dose: 5 mg Artificial Tears (Genteal Severe Dry Eye Relief 0.3% Opth Gel) 1 drops EACH EYE BID [facility] Aspirin (Ecotrin) 81 mg PO DAILY [facility] Last Admin: 07/24/18 10:11 Dose: 81 mg Azithromycin (Zithromax) 500 mg PO Q24H [facility] Bisacodyl (Dulcolax Supp) 10 mg RECTAL DAILY PRN PRN Reason: SEVERE CONSITIPATION Brimonidine Tartrate (Alphagan 0.2% Opth Drops) 1 drops EACH EYE BID [facility] Last Admin: 07/24/18 10:13 Dose: 1 drops Budesonide/Formoterol Fumarate (Symbicort 160/4.5 Mcg Inh) 2 puff INH BID [facility] Chlorhexidine Gluconate (Peridex 0.12% Oral Kit) 15 ml OROPHARYNG BID@0800, 2000 [facility] Diltiazem HCl (Cardizem) 60 mg PO QID [facility] Doxazosin Mesylate (Cardura) 4 mg PO DAILY [facility] Last Admin: 07/24/18 10:12 Dose: 4 mg Finasteride (Proscar) 5 mg PO DAILY [facility] Last Admin: 07/24/18 10:12 Dose: 5 mg Furosemide (Lasix Inj) 40 mg IV.PUSH BID@0900,1800 [facility] Gabapentin (Neurontin) 100 mg PO TID [facility] Last Admin: 07/24/18 10:11 Dose: 100 mg Piperacillin/Tazobactam/Dextrose (Zosyn 4.5 Gm Premix) 4.5 gm in 100 mls @ 200 mls/hr IV.SIG Q6H [facility] Last Infusion: 07/24/18 11:06 Dose: Infused Fentanyl (Fentanyl 10 Mcg/Ml Premix Drip) 2,500 mcg in 250 mls @ 5 mls/hr IV.SIG TITRATE PRN; Protocol PRN Reason: Per Protocol Norepinephrine Bitartrate 16 (mg/ Sodium Chloride) 250 mls @ 1.87 mls/hr IV.CONT TITRATE PRN; Protocol PRN Reason: See Protocol Propofol (Diprivan 1000 Mg/100 Ml Inj) 1,000 mg in 100 mls @ 2.271 mls/hr IV.CONT TITRATE PRN; Protocol PRN Reason: Per Protocol Lactulose (Lactulose Liq) 30 ml PO DAILY PRN PRN Reason: SEVERE CONSITIPATION Lansoprazole (Prevacid Solutab) 30 mg NG/OG DAILY [facility] Methimazole (Tapazole) 5 mg PO DAILY [facility] Last Admin: 07/24/18 10:12 Dose: 5 mg Methylprednisolone Sodium Succinate (Solumedrol Inj) 40 mg IV.PUSH Q12H [facility] Last Admin: 07/24/18 10:12 Dose: 40 mg Morphine Sulfate (Morphine Inj) 2 mg IV.PUSH Q30M PRN PRN Reason: CHEST PAIN Nitroglycerin (Nitrostat Sl) 0.4 mg SL Q5M PRN PRN Reason: CHEST PAIN Potassium Chloride (Klor-Con 10) 10 meq PO DAILY [facility] Last Admin: 07/24/18 10:11 Dose: 10 meq Senna/Docusate Sodium (Cheryl-Colace) 1 tab PO BID [facility] Last Admin: 07/24/18 10:12 Dose: 1 tab Sennosides (Senokot) 17.2 mg PO Q12H PRN PRN Reason: Moderate Constipation Sodium Chloride (Ns Flush) 2 ml IV.FLUSH BID [facility] Last Admin: 07/24/18 10:12 Dose: 2 ml Sodium Chloride (Ns Flush) 2 ml IV.FLUSH PRN PRN PRN Reason: FLUSH AFTER USING IV ACCESS Terbutaline Sulfate (Brethine Inj) 1 mg SQ UNSCH PRN PRN Reason: For Extravasation Tramadol HCl (Ultram) 50 mg PO Q6H PRN PRN Reason: CHRONIC PAIN Allergies Allergy/AdvReac Type Severity Reaction Status Date / Time codeine Allergy Severe Irritabilit Verified 07/23/18 13:22 y/Anxiety diclofenac Allergy Severe Rash Verified 07/23/18 13:22 neomycin Allergy Intermediate Rash Verified 07/23/18 13:22 Home Medications Medication Instructions Recorded Confirmed Type aspirin [Aspirin Low Dose] 81 mg PO DAILY 06/21/18 07/23/18 History brimonidine 1 drp OPHTHALMIC (EYE) BID 06/21/18 07/23/18 History budesonide-formoterol 2 puff INHALATION BID 06/21/18 07/23/18 History doxazosin 4 mg PO DAILY 06/21/18 07/23/18 History finasteride 5 mg PO DAILY 06/21/18 07/23/18 History gabapentin 100 mg PO TID 06/21/18 07/23/18 History methimazole 5 mg PO DAILY 06/21/18 07/23/18 History tramadol 50 mg PO QID 06/21/18 07/23/18 History furosemide [Lasix] 20 mg PO DAILY 07/23/18 07/23/18 History potassium chloride 10 meq PO DAILY 07/23/18 07/23/18 History Physical Exam Vital signs: Vital Signs 07/23/18 13:18 07/23/18 13:21 07/23/18 13:41 Temperature 99.3 F Pulse Rate 86 91 H Respiratory Rate 17 16 Blood Pressure 111/58 L Pulse Oximetry 95 95 07/23/18 13:42 07/23/18 15:13 07/23/18 15:59 Temperature Pulse Rate 90 78 100 H Respiratory Rate 16 20 16 Blood Pressure 112/62 109/59 L Pulse Oximetry 94 L 94 L 07/23/18 16:00 07/23/18 17:37 07/23/18 19:25 Temperature 98.0 F Pulse Rate 131 H 100 H 110 H Respiratory Rate 16 16 Blood Pressure 144/107 H Pulse Oximetry 94 L 07/23/18 19:37 07/23/18 20:00 07/23/18 23:31 Temperature 98.3 F 98.2 F Pulse Rate 104 H 106 H 101 H Respiratory Rate 18 20 20 Blood Pressure 134/96 H 125/92 H Pulse Oximetry 94 L 94 L 95 07/23/18 23:45 07/23/18 23:52 07/24/18 03:04 Temperature Pulse Rate 100 H 78 86 Respiratory Rate 18 18 Blood Pressure Pulse Oximetry 07/24/18 04:00 07/24/18 04:02 07/24/18 05:06 Temperature 98.6 F Pulse Rate 103 H 114 H 87 Respiratory Rate 22 16 Blood Pressure 162/70 H Pulse Oximetry 96 07/24/18 07:46 07/24/18 08:00 07/24/18 08:02 Temperature 97.9 F Pulse Rate 114 H 54 L 106 H Respiratory Rate 25 H 14 Blood Pressure 117/76 Pulse Oximetry 92 L 98 07/24/18 10:42 07/24/18 11:50 Temperature Pulse Rate 114 H 133 H Respiratory Rate 25 H 36 H Blood Pressure Pulse Oximetry Intake & Output 07/23/18 07/24/18 07/24/18 18:59 06:59 18:59 Intake Total 350 / 350 200 / 200 150 / 150 Output Total 100 / 100 Balance 350 / 350 100 / 100 150 / 150 Weight 168 kg 75.7 kg Intake: IV 350 / 350 200 / 200 150 / 150 Heparin/D5W 25,000 U/250 mL 25, 50 / 50 000 unit In 250 ml @ 9 mls/hr IV.CONT TITRATE PRN Rx#: [id number] Azithromycin Inj 500 MG In NS 250 / 250 Inj 250 ML @ 250 mls/hr IV.SIG ONCE ONE Rx#:[id number] Zosyn 4.5 GM Premix 4.5 gm In 100 / 100 200 / 200 100 / 100 100 ml @ 200 mls/hr IV.SIG Q6H HEYDI Rx#:[id number] Output: Urine 100 / 100 Other: # Voids 2 Date of Last Bowel Movement 07/24/18 - Constitutional no acute distress - Routine HEENT Exam Head: Present: normocephalic, atraumatic Eye: Present: EOMI, PERRL, normal accommodation. Absent: conjunctival icterus ENT: Present: mucous membranes moist - Routine Neck Exam Present: supple, full ROM. Absent: carotid bruit - Routine Respiratory Exam Present: accessory muscle use, patient mechanically ventilated, decreased breath sounds, wheezes - Routine Cardiovascular Exam Present: S1, S2, murmur, tachycardia - Routine Abdominal Exam Present: soft, normoactive bowel sounds - Routine Exam Patient deferred: penile exam, testicular exam, scrotal exam, groin exam, perineal exam - Routine Extremities Exam Absent: cyanosis, clubbing, edema - Routine Skin Exam Present: intact - Routine Neurological Exam Present: CN II-XII intact. Absent: sensory deficit, motor deficit - Detailed Neurological Exam: Coma Scale Eye Opening: Spontaneous Verbal Response: Oriented Motor Response: Obey commands Harvinder Coma Scale Total: 15 - Routine Psychiatric Exam Present: normal affect - Urinary Catheter Management Condom Cath placed during this visit: no Urethral indwelling: No Septic Shock Reassessment Septic shock perfusion: reassessment completed Assessment and Plan - Assessment and Plan Plan: Neuro/Psych: Anxiety disorder NOS Glaucoma Currently on propofol/fentanyl drips for sedation/analgesia while intubated Goal of RASS -2 Daily sedation vacation Acetaminophen 650 by tube every 6 hours as needed fever Continue Brimonidine 0.2% 1 drop twice daily for glaucoma CV: NSTEMI with elevated troponin 0 0.36 Left bundle branch block History of myocardial infarction Essential hypertension Followed by cardiology/Dr. Stephens. 2D echocardiogram is pending Troponin currently in a downward trend. EKG reveals atrial fibrillation heart rate in the 120s. Recommend initiating diltiazem 60 mg every 6 hours with apixaban 5 mg twice daily Nuclear medicine stress test 06/10 revealed old anteroseptal infarct. EF 42%. No reversibility. Resp: Acute respiratory failure History of severe emphysema/COPD PRVC ventilation. 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 Condom catheter. Cline catheter if indicated indwelling Endo: History of thyrotoxicosis SSI with aspart insulin every 6 hours/medium protocol to maintain euglycemia while on steroids Check TSH. Continue methimazole the interim 5 mg daily Renal: Creatinine currently within normal limits Monitor urine output Accurate I's and O's Heme: History of prostate cancer Leukopenia Monitor CBC daily. Follow trends. Initiated on apixaban 5 mg twice daily for possible non-STEMI per cardiology. ID: 07/23 -blood cultures 2 -no growth today Influenza a/B, Legionella and pneumococcal urine antigens no growth 07/23 sputum no growth today Continue piperacillin/tazobactam and azithromycin FEN: Replace electrolytes as clinically indicated per ICU electrolyte protocol MSK: Chronic shoulder pain Osteoarthritic PT/OT evaluate and treat Access -Utilize peripheral IV. Central line if indicated Prophylaxis -GI -lansoprazole DVT- -SCD/apixaban 5 mg twice daily provides DVT prophylaxis Consultation 30 minutes critical care time.
[2018-07-24] MEDS: fentaNYL 10 mcg/mL Premix Drip 2,500 MCG/250 ML BAG IV.SIG PRN (12:30)
[2018-07-24] MEDS ORDERED: Potassium Chloride 25 MEQ Effervescent Tablet PO PRN (12:33)
[2018-07-24] MEDS ORDERED: Potassium Chlor 40 mEq Premix 40 MEQ/100 ML PIGGYBACK IV.SIG PRN ×2 (12:33→13:00)
[2018-07-24] MEDS ORDERED: Magnesium Oxide 400 MG Tablet PO PRN (12:33)
[2018-07-24] MEDS ORDERED: Potassium Phosphate Inj 30 MMOL in Sodium Chlor 0.9% Inj 250 ML IV.SIG PRN (12:33)
[2018-07-24] MEDS ORDERED: Sodium Phosphate Inj 30 MMOL in Sodium Chlor 0.9% Inj 250 ML IV.SIG PRN (12:33)
[2018-07-24] MEDS ORDERED: Potassium Chlor 20 mEq Premix 20 MEQ/100 ML PIGGYBACK IV.SIG PRN ×2 (12:33)
[2018-07-24] MEDS ORDERED: Magnesium Sulfate Inj 4 GM in Sodium Chlor 0.9% Inj 92 ML IV.SIG PRN (12:33)
[2018-07-24] MEDS ORDERED: Potassium Phosphate 500 MG Soluble Tablet PO PRN ×2 (12:33)
[2018-07-24] MEDS ORDERED: Magnesium Sulfate Inj 2 GM in Sodium Chlor 0.9% Inj 96 ML IV.SIG PRN (12:33)
[2018-07-24] MEDS ORDERED: Dextrose 50% in Water 50 ML Vial IV.PUSH PRN (12:34)
[2018-07-24] MEDS: Oral Hygiene Kit OROPHARYNG SCH ×2 (12:34→15:25)
--- NOTE | 2018-07-24 13:01 | XR ---
EXAM DATE: 07/24/2018 12:54 PM EDT AGE/SEX: 87 years / Male INDICATIONS: Status post intubation. CLINICAL DATA: This is the patient's initial encounter. Patient reports that signs and symptoms have been present for 1 day and indicates a pain score of Nonresponsive. MEDICAL/SURGICAL HISTORY: Emphysema. Myocardial infarction. Olivares's esophagus. Appendectomy. Cholecystectomy. [place] [facility] [place]. . FINDINGS: 2 AP views of the chest. Endotracheal tube is in place with the tip 3 cm above the qi. Nasogastri c tube is in place, coiled in the stomach, with the tip in the proximal stomach. Mild hazy opacity of the lower lung zones unchanged. Possible small pleural effusions. No evidence of pneumothorax. CONCLUSION: 1. Endotracheal tube and nasogastric tube now in place. 2. No change in mild bilateral lower lung zone opacity. Electronically signed by: Harlan Snow MD 07/24/2018 1:00 PM EDT
[2018-07-24] MEDS ORDERED: dilTIAZem Inj 125 MG in Sodium Chlor 0.9% Inj 100 ML IV.CONT PRN (14:00)
--- NOTE | 2018-07-24 14:02 | ECG ---
Date Performed: 07/24/2018 Time Performed: 01:28:52 PTAGE: 87 years EKG: Atrial flutter with frequent multifocal PVCs or aberrant ventricular conduction Leftward ax is Left bundle branch block Abnormal ECG PREVIOUS TRACING :07/23/2018 @13.13 Since the previous tracing, no significant change noted DOCTOR: Geovani Stephens Interpretating Date/Time 07/24/2018 14:01:46
--- NOTE | 2018-07-24 14:02 | ECG ---
Date Performed: 07/23/2018 Time Performed: 13:13:03 PTAGE: 87 years EKG: ATRIAL FLUTTER/TACHYCARDIA WITH ABERRANT CONDUCTION OR VENTRICULAR PREMATURE COMPLEXES LEFT BUNDLE BRANCH BLOCK CONSIDER INFERIOR INJURY PREVIOUS TRACING : 06/21/2018 06.22 Compared to previous tracing, atrial flutter has repl aced Sinus rhythm DOCTOR: Geovani Stephens Interpretating Date/Time 07/24/2018 14:01:14
[2018-07-24] MEDS: Digoxin Inj 500 MCG/2 ML Ampul IV.PUSH ONE ×2 (14:05→14:32)
[2018-07-24] MEDS: Azithromycin 250 MG Tablet PO SCH (14:05)
[2018-07-24] MEDS: dilTIAZem 60 MG Tablet PO SCH ×3 (14:05→20:17)
[2018-07-24 14:52] LABS: ABG Base Excess 5.1 mmol/L (-2-2); ABG PCO2 46 mmHg (38-42); ABG PO2 360 mmHG (61-120)
[2018-07-24] MEDS: Budesonide-Formoterol 160/4.5 MCG 6 GM Inhaler INH SCH ×2 (15:25→22:50)
[2018-07-24] MEDS ORDERED: Midazolam 50 MG/50 ML Inj 50 MG/50 ML BAG IV.CONT PRN ×2 (15:39→15:52)
[2018-07-24] MEDS ORDERED: Sod Chloride 0.9% Inj 1,000 ML IV.SIG ONE (15:40)
[2018-07-24 15:41] LABS: Magnesium 2.2 mg/dL (1.5-2.5); Potassium 3.5 meq/L (3.5-5.1)
[2018-07-24 15:50] LABS: Chol/HDL Ratio 1.92 Ratio; HDL Cholesterol 54.6 mg/dL (40.0-60.0); Thyroid Stimulating Hormone 0.358 uIU/mL (0.358-3.740)
[2018-07-24] MEDS: Insulin NovoLOG Aspart Correctional Sugar Inj SQ SCH ×2 (17:37→23:57)
--- NOTE | 2018-07-24 18:49 | P.PCN ---
Date of procedure: 07/24/18 Pre-op diagnosis: Hypotension Post-op diagnosis: same Procedure: DATE: 07/24/2018 CENTRAL LINE PLACEMENT: Left internal jugular vein. Ultrasound-guided INDICATION: Central venous access CONSENT Informed consent for procedure was obtained from . DESCRIPTION OF THE PROCEDURE The patient was placed in supine position. The skin was cleansed with Chloraprep. Additional barrier precautions included large sterile drape, sterile gloves, sterile gown, face mask, and hat. 1 % lidocaine was used for local anesthesia. Under direct ultrasound guidance and on initial attempt, the vein was accessed with an introducer needle. The guide wire was advanced and the tract was dilated. Using Seldinger technique a 7 Kazakh 20 cm antimicrobial coated triple-lumen catheter was advanced to a depth of 12 centimeters. The guide wire was removed. All ports had good return of dark venous blood and flushed easily with saline. The central line was secured with 2.0 silk. A sterile dressing with antibiotic disc was applied. StatLock was not place as do unable to adhesive to skin. ESTIMATED BLOOD LOSS: Minimal COMPLICATIONS: No apparent complications. STAT chest x-ray revealed cephalad positioning of central line. See report. Venous return. Line will be discontinued in the right IJ placed see note
[2018-07-24] MEDS ORDERED: Norepinephrine Inj 4 MG in Sodium Chlor 0.9% Inj 246 ML IV.SIG PRN (18:50)
[2018-07-24] MEDS ORDERED: Potassium Chlor 40 mEq Premix 40 MEQ/100 ML PIGGYBACK IV.SIG ONE ×2 (18:52→20:15)
[2018-07-24 18:58] LABS: Bilirubin,Urine Negative (Negative); Clarity,Urine Clear (Clear); Color,Urine Yellow (Yellw/Straw); Glucose,Urine (UA) Negative (Negative); Hyaline Casts,Urine 10 /lpf (0-3); Leukocyte Esterase,Urine Negative (Negative); Mucus,Urine Few /lpf (Occasional); Nitrite,Urine Negative (Negative); Specific Gravity,Urine 1.015 (1.002-1.035)
--- NOTE | 2018-07-24 20:08 | XR ---
EXAM DATE: 07/24/2018 7:03 PM EDT AGE/SEX: 87 years / Male INDICATIONS: Central line placement. CLINICAL DATA: This is the patient's initial encounter. Patient reports that signs and symptoms have been present for 1 day and indicates a pain score of Nonresponsive. MEDICAL/SURGICAL HISTORY: Emphysema. Myocardial infarction. Olivares's esophagus. Appendectomy . Cholecystectomy. [place] [facility] [place]/24/2018. . FINDINGS: A left-sided central venous catheter has been inserted. The catheter extends to the aortic arch and t hen has an acute bend. Endotracheal and nasogastric tubes remain in satisfactory position. Lungs are hyperinflated. There is no evidence of pneumothorax. Significant bibasilar airspace disease and suspected effusions are noted. CONCLUSION: Left-sided catheter with an acute bend at the aortic arch. Intravenous location cannot be confirmed. No evidence of pneumothorax. A lateral airspace disease and effusions COPD Electronically signed by: Michele Nooann MD 07/24/2018 8:07 PM EDT
--- NOTE | 2018-07-24 20:14 | XR ---
EXAM DATE: 07/24/2018 7:32 PM EDT AGE/SEX: 87 years / Male INDICATIONS: Central line placement, right. CLINICAL DATA: This is the patient's initial encounter. Patient reports that signs and symptoms have been present for 1 day and indicates a pain score of Nonresponsive. MEDICAL/SURGICAL HISTORY: Emphysema. Myocardial infarction. Olivares's esophagus Appendectomy. Cholecystectomy. COMPARISON: [facility] – [place] CHEST 1V SINGLE AP, 07/24/2018. . FINDINGS: A right jugular central venous catheter is been inserted. Its distal tip appears to be in the proxima l superior vena cava. Kinked left-sided line is again identified. Noted is bibasilar airspace disease and bilateral effusions. There is no evidence of pneumothorax CONCLUSION: New right jugular central venous catheter which appears to be in appropriate position. No evidence of pneumothorax. Left-sided line as described. No change in bilateral airspace disease and bilateral effusions. Electronically signed by: Michele Noonan MD 07/24/2018 8:12 PM EDT
[2018-07-24] MEDS: Hypromellose 0.3% Opth Gel 10 GM Bottle EACH EYE SCH (20:17)
[2018-07-24] MEDS: Chlorhexidine 0.12% Oral Kit 15 ML UDC OROPHARYNG SCH (20:17)
--- NOTE | 2018-07-24 20:25 | ECG ---
Date Performed: 07/24/2018 Time Performed: 13:02:44 PTAGE: 87 years EKG: ATRIAL FLUTTER/TACHYCARDIA WITH VARIABLE BLOCK PVCS RBBB ABNORMAL ECG PREVIOUS TRACING : 07/24/2018 01.28 Since the previous tracing, no significant change noted DOCTOR: Serene Mtz Interpretating Date/Time 07/24/2018 20:23:59
[2018-07-24] MEDS: Midazolam 50 MG/50 ML Inj 50 MG/50 ML BAG IV.CONT PRN ×2 (21:00→22:48)
--- NOTE | 2018-07-24 21:34 | ECG ---
Date Performed: 07/24/2018 Time Performed: 20:33:42 PTAGE: 87 years EKG: Atrial flutter with variable block Left bundle branch block Low QRS voltages in limb leads Abnormal ECG PREVIOUS TRACING : 07/24/2018 13.02 Since the previous tracing, no significant change noted DOCTOR: Serene Mtz Interpretating Date/Time 07/24/2018 21:33:00
[2018-07-25 00:56] LABS: Hematocrit 40.7 % (39.0-51.0); Hemoglobin 13.6 gm/dL (13.0-17.0); Lymph # (Auto) 0.4 th/mm3 (1.0-4.8); Lymph % (Auto) 3.6 % (9.0-44.0); Mean Corpuscular HGB Conc 33.3 % (32.0-36.0); Mean Corpuscular Hemoglobin 33.4 pg (27.0-34.0); Mean Corpuscular Volume 100.4 fL (80.0-100.0); Mean Platelet Volume 8.5 fL (7.0-11.0); Mono # (Auto) 0.6 th/mm3 (0.0-0.9); Mono % (Auto) 5.8 % (0.0-8.0); Neut # (Auto) 9.1 th/mm3 (1.8-7.7); Neut % (Auto) 90.6 % (16.0-70.0); Platelet Count 179 th/mm3 (150-450); Red Blood Count 4.05 mil/mm3 (4.50-5.90); White Blood Count 10.1 th/mm3 (4.0-11.0)
--- NOTE | 2018-07-25 00:57 | CT ---
EXAM DATE: 07/25/2018 12:50 AM EDT AGE/SEX: 87 years / Male INDICATIONS: Right sided deficit. CLINICAL DATA: This is the patient's initial encounter. Patient reports that signs and symptoms have been present for 1 day and indicates a pain score of Nonresponsive. MEDICAL/SURGICAL HISTORY: Chronic obstructive pulmonary disease. Carcinoma, prostatic. Olivares's e sophagus Appendectomy. Cholecystectomy. TURP RADIATION DOSE: 39.24 CTDI (mGy) COMPARISON: No prior exams available for comparison. TECHNIQUE: CT of the head without contrast. Using automated exposure control and adjustment of the mA and/or kV according to patient size, radiation dose was kept as low as reasonably achievable to ob tain optimal diagnostic quality images. DICOM format image data is available electronically for revi ew and comparison. FINDINGS: Bilateral low-attenuation subdural fluid collections are present and measure 15 mm in maximal thickne ss on the right and 8 mm on the left. There is approximately 6 mm of leftward midline shift. No acute blood seen. No mass demonstrated. Atrophy is noted, both cerebral and cerebellar.. Bone window images show an intact skull. Visualized portions of the paranasal sinuses and mastoid air cells are clear. CONCLUSION: 1. Bilateral cystic hygromas/chronic subdural hematomas that are right greater than left and with as sociated 6 mm of leftward midline shift. 2. No acute blood or evidence of an acute ischemic event. 3. Atrophy. . Electronically signed by: Eduard Casas MD 07/25/2018 12:56 AM EDT
[2018-07-25] MEDS: Oral Hygiene Kit OROPHARYNG SCH ×5 (01:02→23:57)
[2018-07-25 01:32] LABS: Alanine Aminotransferase 35 U/L (12-78); Albumin 2.9 g/dL (3.4-5.0); Alkaline Phosphatase 57 U/L (45-117); Anion Gap 9 meq/L (5-15); Aspartate Aminotransferase 20 U/L (15-37); Blood Urea Nitrogen 23 mg/dL (7-18); Calcium 7.9 mg/dL (8.5-10.1); Chloride 105 meq/L (98-107); Free T4 (Free Thyroxine) 1.12 ng/dL (0.76-1.46); Glomerular Filtration Rate 72 mL/min (>89); Glucose,Random 132 mg/dL (74-106); Magnesium 2.3 mg/dL (1.5-2.5); Phosphorus 3.1 mg/dL (2.5-4.9); Potassium 3.9 meq/L (3.5-5.1); Sodium 145 meq/L (136-145); Total Protein 5.5 g/dL (6.4-8.2); Triiodothyronine (T3) Free 1.31 pg/mL (2.18-3.98); Troponin I 0.25 ng/mL (0.02-0.05)
[2018-07-25 01:33] LABS: Creatine Kinase 56 U/L (39-308)
[2018-07-25] MEDS: Piperacil/Tazo 4.5 GM Premix 4.5 GM/100 ML BAG IV.SIG SCH ×4 (02:53→20:40)
--- NOTE | 2018-07-25 04:36 | XR ---
EXAM DATE: 07/25/2018 4:25 AM EDT AGE/SEX: 87 years / Male INDICATIONS: Shortness of breath, possible pulmonary disease. CLINICAL DATA: This is the patient's subsequent encounter. Patient reports that signs and symptoms h ave been present for 3 days and indicates a pain score of Nonresponsive. MEDICAL/SURGICAL HISTORY: . Emphysema. Myocardial infarction. Olivares's esophagus. Appendectom y. Cholecystectomy. COMPARISON: [facility] [place] 1V SINGLE AP, 07/24/2018. . FINDINGS: Right greater than left basilar consolidation again noted and not significantly changed. No large eff usion. No pneumothorax. Heart size stable, within normal limits. Tortuous thoracic aorta. Endotracheal tube tip is approximately 5 cm above the qi. There is a nasogastric tube coiled in t he stomach. Right internal jugular central venous catheter with tip in the superior vena cava again n oted. CONCLUSION: Bibasilar consolidation without significant change. Electronically signed by: Eduard Casas MD 07/25/2018 4:35 AM EDT
[2018-07-25 04:59] LABS: Hematocrit 39.9 % (39.0-51.0); Hemoglobin 13.4 gm/dL (13.0-17.0); Mean Corpuscular HGB Conc 33.6 % (32.0-36.0); Mean Corpuscular Hemoglobin 33.6 pg (27.0-34.0); Mean Corpuscular Volume 99.9 fL (80.0-100.0); Mean Platelet Volume 8.2 fL (7.0-11.0); Platelet Count 176 th/mm3 (150-450); Red Blood Count 3.99 mil/mm3 (4.50-5.90); Red Cell Distribution Width 12.9 % (11.6-17.2); White Blood Count 8.3 th/mm3 (4.0-11.0)
[2018-07-25] MEDS: Insulin NovoLOG Aspart Correctional Sugar Inj SQ SCH ×4 (05:33→23:54)
--- NOTE | 2018-07-25 07:57 | P.PNCC ---
Subjective Subjective Remarks/Hospital Course: This is an 87-year-old male. Full code. Admission 07/23/2018. Date of consultation 07/24/2018. Past medical history includes recent hospitalization 06/21-06/23 for COPD exacerbation for which he is 2 L nasal cannulae dependent as of 06/15, anxiety disorder, BPH, prostate cancer, essential hypertension, myocardial infarction, glaucoma, rectal/anal stenosis, diverticulosis, internal and external hemorrhoids, degenerative disease, emphysema seen by Dr. Stovall and known systolic heart failure ejection fraction around 40% followed by Dr. Andrade. Patient originally presented to [facility] via [facility] for sudden onset shortness of breath. The patient reports this morning when he got up to go to the restroom he suddenly became very dyspneic to the point where he could not get off the commode for about 45 minutes. His saturations are 74% but symptomatic include after receiving an albuterol/ipratropium aerosol treatment. His heart rate was reportedly in the high 100s and he was given IV diltiazem. Patient had a negative CT pulmonary comfort pulmonary embolism and lower extremity Dopplers for deep venous thrombosis. He is placed on a regimen of aggressive pulmonary toilet aerosolized medication therapy and IV methylprednisolone succinate. He remained in atrial fibrillation with rapid ventricular response the heart rate in the 100s. Troponin did bump from 0.36. Denies chest pain. Noted negative nuclear medicine scan 06/10 showing an old anteroseptal infarct. EF around 40%. No reversibility. Most recent pulmonary functions revealed F vital capacity 57% and FEV1 at 37%. Today, patient was transferred to ICU emergently for worsening respiratory failure. Discussed with patient electively intubated due to impending respiratory failure 07/25 Patient is intubated on Fentanyl infusion for sedation. Off Levophed. Afebrile. Objective Vital Signs / I&O: Vital Signs 07/24/18 07:46 07/24/18 08:00 07/24/18 08:02 Temperature 97.9 F Pulse Rate 114 H 54 L 106 H Respiratory Rate 25 H 14 Blood Pressure 117/76 Pulse Oximetry 92 L 98 07/24/18 10:42 07/24/18 11:50 07/24/18 12:00 Temperature 97.7 F Pulse Rate 114 H 133 H 125 H Respiratory Rate 25 H 36 H 18 Blood Pressure 121/67 Pulse Oximetry 100 07/24/18 12:15 07/24/18 14:05 07/24/18 15:22 Temperature Pulse Rate 80 Respiratory Rate 18 18 18 Blood Pressure Pulse Oximetry 100 07/24/18 16:00 07/24/18 19:30 07/24/18 20:00 Temperature 97.9 F 98.3 F Pulse Rate 81 77 Respiratory Rate 18 18 18 Blood Pressure 110/64 116/66 Pulse Oximetry 100 100 100 07/24/18 20:03 07/24/18 22:20 07/24/18 23:30 Temperature Pulse Rate 76 60 Respiratory Rate 18 18 18 Blood Pressure Pulse Oximetry 100 07/25/18 00:00 07/25/18 00:30 07/25/18 02:57 Temperature 97.5 F L Pulse Rate 52 L Respiratory Rate 18 18 Blood Pressure 126/56 L Pulse Oximetry 100 100 100 07/25/18 03:56 07/25/18 04:00 07/25/18 04:35 Temperature 98 F Pulse Rate 78 78 Respiratory Rate 18 18 18 Blood Pressure 121/71 Pulse Oximetry 100 100 Intake & Output 07/24/18 07/25/18 07/25/18 18:59 06:59 18:59 Intake Total 1250 / 1250 350 / 350 Output Total 950 / 950 500 / 500 Balance 300 / 300 -150 / -150 Weight 76.1 kg Intake: IV 1250 / 1250 350 / 350 Heparin/D5W 25,000 U/250 mL 25, 50 / 50 000 unit In 250 ml @ 9 mls/hr IV.CONT TITRATE PRN Rx#: [id number] Versed Inj 50 mg In 50 ml @ 2 50 / 50 MG/HR 2 mls/hr IV.CONT TITRATE PRN Rx#:[id number] Zosyn 4.5 GM Premix 4.5 gm In 200 / 200 200 / 200 100 ml @ 200 mls/hr IV.SIG Q6H IRENA Rx#:[id number] KCl 40 mEq Premix Inj 40 meq In 100 / 100 100 ml @ 25 mls/hr IV.SIG ONCE ONE Rx#:[id number] NS Inj 1,000 ML @ Wide Open IV. 1000 / 1000 0 / 0 SIG BOLUS ONE Rx#:[id number] Oral 0 / 0 Output: Urine Amount (Catheter) 950 / 950 500 / 500 Indwelling Urethral Catheter 950 / 950 500 / 500 Other: Date of Last Bowel Movement 07/24/18 # Bowel Movements 0 0 Result Diagrams: 07/25/18 04:45 07/25/18 00:05 Other Results: Laboratory Results - last 12 hr 07/24/18 07/25/18 07/25/18 23:42 00:05 00:05 WBC 10.1 D RBC 4.05 L Hgb 13.6 Hct 40.7 MCV 100.4 H MCH 33.4 MCHC 33.3 RDW 13.0 Plt Count 179 MPV 8.5 Neut % (Auto) 90.6 H Lymph % (Auto) 3.6 L [place] % (Auto) 5.8 Eos % (Auto) 0.0 Baso % (Auto) 0.0 Neut # (Auto) 9.1 H Lymph # (Auto) 0.4 L [place] # (Auto) 0.6 Eos # (Auto) 0.0 Baso # (Auto) 0.0 WBC Differential . Differential Comment Auto diff final Sodium 145 Potassium 3.9 Chloride 105 Carbon Dioxide 31.0 Anion Gap 9 BUN 23 H Creatinine 0.98 Estimated GFR 72 L POC Glucose 164 H Random Glucose 132 H Calcium 7.9 L Phosphorus 3.1 Magnesium 2.3 Total Bilirubin 0.6 AST 20 ALT 35 Alkaline Phosphatase 57 Total Creatine Kinase 56 Troponin I 0.25 H Total Protein 5.5 L D Albumin 2.9 L D Free T4 1.12 Free T3 1.31 L 07/25/18 07/25/18 04:45 05:22 WBC 8.3 RBC 3.99 L Hgb 13.4 Hct 39.9 MCV 99.9 MCH 33.6 MCHC 33.6 RDW 12.9 Plt Count 176 MPV 8.2 Neut % (Auto) Lymph % (Auto) [place] % (Auto) Eos % (Auto) Baso % (Auto) Neut # (Auto) Lymph # (Auto) [place] # (Auto) Eos # (Auto) Baso # (Auto) WBC Differential Differential Comment Sodium Potassium Chloride Carbon Dioxide Anion Gap BUN Creatinine Estimated GFR POC Glucose 128 H Random Glucose Calcium Phosphorus Magnesium Total Bilirubin AST ALT Alkaline Phosphatase Total Creatine Kinase Troponin I Total Protein Albumin Free T4 Free T3 Imaging: Chest CTA 07/23/18 00:00 CONCLUSION: 1. COPD with mild subsegmental airspace disease in the lingula. 2. No evidence of pulmonary embolism. 3. Mild background groundglass opacity with small bilateral effusions which may represent mild congestive heart failure. 4. Calcified coronary arteries. Venous Doppler Study 07/23/18 00:00 CONCLUSION: The study is negative for lower extremity deep venous thrombosis. Head CT 07/25/18 00:00 CONCLUSION: 1. Bilateral cystic hygromas/chronic subdural hematomas that are right greater than left and with associated 6 mm of leftward midline shift. 2. No acute blood or evidence of an acute ischemic event. 3. Atrophy. . Chest X-Ray 07/25/18 06:00 CONCLUSION: Bibasilar consolidation without significant change. Objective Remarks: GENERAL: Patient is 87 yo intubated and sedated SKIN: Warm and dry. HEAD: Normocephalic. EYES: No scleral icterus. No injection or drainage. NECK: Supple, trachea midline. No JVD or lymphadenopathy. CARDIOVASCULAR: Regular rate and rhythm without murmurs, gallops, or rubs. RESPIRATORY: Breath sounds equal bilaterally. No accessory muscle use. GASTROINTESTINAL: Abdomen soft, non-tender, nondistended. MUSCULOSKELETAL: No cyanosis, or edema. Neuro: Sedated Assessment and Plan - Assessment and Plan Plan: Neuro/Psych: Anxiety disorder NOS Glaucoma Currently on fentanyl infusion for sedation/analgesia while intubated Goal of RASS -2 Daily sedation vacation Acetaminophen 650 by tube every 6 hours as needed fever Continue Brimonidine 0.2% 1 drop twice daily for glaucoma CT brain: Bilateral cystic hygromas/chronic subdural hematomas that are right greater than left and with associated 6 mm of leftward midline shift. No acute blood or evidence of an acute ischemic event. Atrophy. MRI brain today: Redemonstration of bilateral cystic hygromas, slightly asymmetric (right greater than left) and associated 5 mm right to left midline shift. Otherwise, no acute abnormality. Specifically, no acute hemorrhage, hydrocephalus or abnormal enhancement NSG is following- Discussed with Dr. Dhaliwal CV: NSTEMI with elevated troponin 0 0.36 Left bundle branch block History of myocardial infarction Essential hypertension Followed by cardiology/Dr. Stephens. 2D echocardiogram is pending Troponin currently in a downward trend. On Diltiazem 60 mg every 6 hours, monitor HR and BP keep MAP>65mmHg Apixaban 5 mg twice daily on hold. Nuclear medicine stress test 06/10 revealed old anteroseptal infarct. EF 42%. No reversibility. 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 Condom catheter. Cline catheter if indicated indwelling Monitor renal function, I/O's, electrolytes replacement per protocol. On Lasix 40mg IV daily Endo: History of thyrotoxicosis SSI with aspart insulin every 6 hours/medium protocol to maintain euglycemia while on steroids Continue methimazole 5 mg daily TSH: 0.35, FT4: 1.12, FT3: 1.31 Heme: History of prostate cancer Leukopenia Monitor CBC daily. Follow trends. ID: 07/23 -blood cultures 2 -NGTD Influenza a/B, Legionella and pneumococcal urine antigens no growth Check sputum cx Continue piperacillin/tazobactam and azithromycin MSK: Chronic shoulder pain Osteoarthritic PT/OT evaluate and treat Access -Utilize peripheral IV. Right IJ CVP placed 07/24 Prophylaxis -GI -lansoprazole DVT- -SCD/ for DVT prophylaxis. Eliquis placed on hold Level 3
[2018-07-25] MEDS: methIMAzole 5 MG Tablet PO SCH (08:05)
[2018-07-25] MEDS: Senna/Docusate Sodium 8.6/50 MG Tablet PO SCH ×2 (08:05→20:40)
[2018-07-25] MEDS: Gabapentin 100 MG Capsule PO SCH ×3 (08:05→17:20)
[2018-07-25] MEDS: dilTIAZem 60 MG Tablet PO SCH ×4 (08:05→20:40)
[2018-07-25] MEDS: fentaNYL 10 mcg/mL Premix Drip 2,500 MCG/250 ML BAG IV.SIG PRN (08:05)
[2018-07-25] MEDS: Brimonidine 0.2% Opth Drops 5 ML Bottle EACH EYE SCH ×2 (08:06→20:39)
[2018-07-25] MEDS: Budesonide-Formoterol 160/4.5 MCG 6 GM Inhaler INH SCH ×2 (08:06→20:40)
[2018-07-25] MEDS: MethylPREDNISolone Sod Succinate Inj 40 MG/ML Vial IV.PUSH SCH ×2 (08:06→20:40)
[2018-07-25] MEDS: Hypromellose 0.3% Opth Gel 10 GM Bottle EACH EYE SCH ×2 (08:07→20:49)
[2018-07-25] MEDS: Chlorhexidine 0.12% Oral Kit 15 ML UDC OROPHARYNG SCH ×2 (08:07→20:39)
[2018-07-25] MEDS: Finasteride 5 MG Tablet PO SCH (08:09)
--- NOTE | 2018-07-25 09:06 | P.PN ---
Subjective Interval history: Pt intubated for respiratory failure, controlled aflutter on tele. Physical Exam Vital signs: Vital Signs 07/24/18 10:42 07/24/18 11:50 07/24/18 12:00 Temperature 97.7 F Pulse Rate 114 H 133 H 125 H Respiratory Rate 25 H 36 H 18 Blood Pressure 121/67 Pulse Oximetry 100 07/24/18 12:15 07/24/18 14:05 07/24/18 15:22 Temperature Pulse Rate 80 Respiratory Rate 18 18 18 Blood Pressure Pulse Oximetry 100 07/24/18 16:00 07/24/18 19:30 07/24/18 20:00 Temperature 97.9 F 98.3 F Pulse Rate 81 77 Respiratory Rate 18 18 18 Blood Pressure 110/64 116/66 Pulse Oximetry 100 100 100 07/24/18 20:03 07/24/18 22:20 07/24/18 23:30 Temperature Pulse Rate 76 60 Respiratory Rate 18 18 18 Blood Pressure Pulse Oximetry 100 07/25/18 00:00 07/25/18 00:30 07/25/18 02:57 Temperature 97.5 F L Pulse Rate 52 L Respiratory Rate 18 18 Blood Pressure 126/56 L Pulse Oximetry 100 100 100 07/25/18 03:56 07/25/18 04:00 07/25/18 04:35 Temperature 98 F Pulse Rate 78 78 Respiratory Rate 18 18 18 Blood Pressure 121/71 Pulse Oximetry 100 100 07/25/18 08:00 07/25/18 08:09 Temperature Pulse Rate 80 Respiratory Rate 19 19 Blood Pressure Pulse Oximetry 100 Intake & Output 07/24/18 07/25/18 07/25/18 18:59 06:59 18:59 Intake Total 1250 / 1250 350 / 350 250 / 250 Output Total 950 / 950 500 / 500 Balance 300 / 300 -150 / -150 250 / 250 Weight 76.1 kg Intake: IV 1250 / 1250 350 / 350 250 / 250 Heparin/D5W 25,000 U/250 mL 25, 50 / 50 000 unit In 250 ml @ 9 mls/hr IV.CONT TITRATE PRN Rx#: [id number] Versed Inj 50 mg In 50 ml @ 2 50 / 50 MG/HR 2 mls/hr IV.CONT TITRATE PRN Rx#:[id number] Zosyn 4.5 GM Premix 4.5 gm In 200 / 200 200 / 200 100 ml @ 200 mls/hr IV.SIG Q6H IRENA Rx#:[id number] KCl 40 mEq Premix Inj 40 meq In 100 / 100 100 ml @ 25 mls/hr IV.SIG ONCE ONE Rx#:[id number] NS Inj 1,000 ML @ Wide Open IV. 1000 / 1000 0 / 0 SIG BOLUS ONE Rx#:[id number] fentaNYL 10 mcg/mL Premix Drip 250 / 250 2,500 mcg In 250 ml @ 50 MCG/HR 5 mls/hr IV.SIG TITRATE PRN Rx #:[id number] Oral 0 / 0 Output: Urine Amount (Catheter) 950 / 950 500 / 500 Indwelling Urethral Catheter 950 / 950 500 / 500 Other: Date of Last Bowel Movement 07/24/18 # Bowel Movements 0 0 - Constitutional no acute distress - Routine HEENT Exam Head: Present: normocephalic - Routine Neck Exam Absent: JVD - Routine Respiratory Exam Present: diminished air movement - Routine Cardiovascular Exam Present: irregular rhythm - Routine Extremities Exam Present: edema Comments: 1+ bilateral pedal edema - Urinary Catheter Management Condom Cath placed during this visit: no Urethral indwelling: No Indwelling Urethral Catheter Cath placed during this visit: yes Reason for continuing: Acute urinary retention Insertion date: 07/24/18 Results - Labs CBC & Chem 7: 07/25/18 04:45 07/25/18 00:05 Laboratory Results - last 24 hr 07/24/18 07/24/18 07/24/18 10:58 11:05 11:50 WBC RBC Hgb Hct MCV MCH MCHC RDW Plt Count MPV Neut % (Auto) Lymph % (Auto) Stanton % (Auto) Eos % (Auto) Baso % (Auto) Neut # (Auto) Lymph # (Auto) Stanton # (Auto) Eos # (Auto) Baso # (Auto) WBC Differential Differential Comment APTT 29.6 D Puncture Site Right radial Patient Temperature 98.6 O2 Saturation 90 ABG pH 7.45 H ABG pCO2 42 ABG pO2 70 ABG HCO3 28 H ABG O2 Content 18.8 ABG Base Excess 4.2 H ABG Methemoglobin 1.0 Juan Test Present Hemoglobin 14.9 Carboxyhemoglobin 1.6 O2 Delivery Device Nasal cannula Liter Flow 4.00 Vent Setting Inspired O2 21 Critical Value No Sodium Potassium Chloride Carbon Dioxide Anion Gap BUN Creatinine Estimated GFR POC Glucose Random Glucose Calcium Phosphorus Magnesium Total Bilirubin AST ALT Alkaline Phosphatase Total Creatine Kinase Troponin I Total Protein Albumin Triglycerides Cholesterol LDL Cholesterol, Calc HDL Cholesterol Cholesterol/HDL Ratio TSH Free T4 Free T3 Urine Color Urine Clarity Urine pH Ur Specific [place] Urine Protein Urine Glucose (UA) Urine Ketones Urine Occult Blood Urine Nitrate Urine Bilirubin Urine Urobilinogen Ur Leukocyte Esterase Urine RBC Urine WBC Hyaline Casts Urine Mucus Micro UA Comment Ur Microscopic Review Urine Culture Comments Nasal Screen MRSA (PCR) Not detected 07/24/18 07/24/18 07/24/18 14:26 14:26 14:45 WBC RBC Hgb Hct MCV MCH MCHC RDW Plt Count MPV Neut % (Auto) Lymph % (Auto) [place] % (Auto) Eos % (Auto) Baso % (Auto) Neut # (Auto) Lymph # (Auto) Stanton # (Auto) Eos # (Auto) Baso # (Auto) WBC Differential Differential Comment APTT Puncture Site Right radial Patient Temperature 98.6 O2 Saturation 97 ABG pH 7.42 ABG pCO2 46 H ABG pO2 360 H ABG HCO3 29 H ABG O2 Content 19.5 ABG Base Excess 5.1 H ABG Methemoglobin 1.5 Juan Test Present Hemoglobin 13.6 Carboxyhemoglobin 1.0 O2 Delivery Device Ventilator Liter Flow Vent Setting See comments Inspired O2 100 Critical Value No Sodium Potassium Cancelled 3.5 Chloride Carbon Dioxide Anion Gap BUN Creatinine Estimated GFR POC Glucose Random Glucose Calcium Phosphorus Magnesium 2.2 Total Bilirubin AST ALT Alkaline Phosphatase Total Creatine Kinase Troponin I Total Protein Albumin Triglycerides Cancelled 66 Cholesterol Cancelled 105 L LDL Cholesterol, Calc Cancelled 37 HDL Cholesterol Cancelled 54.6 Cholesterol/HDL Ratio Cancelled 1.92 TSH Cancelled 0.358 Free T4 Free T3 Urine Color Urine Clarity Urine pH Ur Specific [place] Urine Protein Urine Glucose (UA) Urine Ketones Urine Occult Blood Urine Nitrate Urine Bilirubin Urine Urobilinogen Ur Leukocyte Esterase Urine RBC Urine WBC Hyaline Casts Urine Mucus Micro UA Comment Ur Microscopic Review Urine Culture Comments Nasal Screen MRSA (PCR) 07/24/18 07/24/18 07/24/18 17:00 17:20 23:42 WBC RBC Hgb Hct MCV MCH MCHC RDW Plt Count MPV Neut % (Auto) Lymph % (Auto) Stanton % (Auto) Eos % (Auto) Baso % (Auto) Neut # (Auto) Lymph # (Auto) Stanton # (Auto) Eos # (Auto) Baso # (Auto) WBC Differential Differential Comment APTT Puncture Site Patient Temperature O2 Saturation ABG pH ABG pCO2 ABG pO2 ABG HCO3 ABG O2 Content ABG Base Excess ABG Methemoglobin Juan Test Hemoglobin Carboxyhemoglobin O2 Delivery Device Liter Flow Vent Setting Inspired O2 Critical Value Sodium Potassium Chloride Carbon Dioxide Anion Gap BUN Creatinine Estimated GFR POC Glucose 114 H 164 H Random Glucose Calcium Phosphorus Magnesium Total Bilirubin AST ALT Alkaline Phosphatase Total Creatine Kinase Troponin I Total Protein Albumin Triglycerides Cholesterol LDL Cholesterol, Calc HDL Cholesterol Cholesterol/HDL Ratio TSH Free T4 Free T3 Urine Color Yellow Urine Clarity Clear Urine pH 5.0 Ur Specific [place] 1.015 Urine Protein Negative Urine Glucose (UA) Negative Urine Ketones Trace Urine Occult Blood Small H Urine Nitrate Negative Urine Bilirubin Negative Urine Urobilinogen Less than 2 Ur Leukocyte Esterase Negative Urine RBC 2 Urine WBC Less than 1 Hyaline Casts 10 Urine Mucus Few H Micro UA Comment Culture not ind Ur Microscopic Review Not Reportable Urine Culture Comments Culture not ind Nasal Screen MRSA (PCR) 07/25/18 07/25/18 07/25/18 00:05 00:05 04:45 WBC 10.1 D 8.3 RBC 4.05 L 3.99 L Hgb 13.6 13.4 Hct 40.7 39.9 MCV 100.4 H 99.9 MCH 33.4 33.6 MCHC 33.3 33.6 RDW 13.0 12.9 Plt Count 179 176 MPV 8.5 8.2 Neut % (Auto) 90.6 H Lymph % (Auto) 3.6 L [place] % (Auto) 5.8 Eos % (Auto) 0.0 Baso % (Auto) 0.0 Neut # (Auto) 9.1 H Lymph # (Auto) 0.4 L Stanton # (Auto) 0.6 Eos # (Auto) 0.0 Baso # (Auto) 0.0 WBC Differential . Differential Comment Auto diff final APTT Puncture Site Patient Temperature O2 Saturation ABG pH ABG pCO2 ABG pO2 ABG HCO3 ABG O2 Content ABG Base Excess ABG Methemoglobin Juan Test Hemoglobin Carboxyhemoglobin O2 Delivery Device Liter Flow Vent Setting Inspired O2 Critical Value Sodium 145 Potassium 3.9 Chloride 105 Carbon Dioxide 31.0 Anion Gap 9 BUN 23 H Creatinine 0.98 Estimated GFR 72 L POC Glucose Random Glucose 132 H Calcium 7.9 L Phosphorus 3.1 Magnesium 2.3 Total Bilirubin 0.6 AST 20 ALT 35 Alkaline Phosphatase 57 Total Creatine Kinase 56 Troponin I 0.25 H Total Protein 5.5 L D Albumin 2.9 L D Triglycerides Cholesterol LDL Cholesterol, Calc HDL Cholesterol Cholesterol/HDL Ratio TSH Free T4 1.12 Free T3 1.31 L Urine Color Urine Clarity Urine pH Ur Specific [place] Urine Protein Urine Glucose (UA) Urine Ketones Urine Occult Blood Urine Nitrate Urine Bilirubin Urine Urobilinogen Ur Leukocyte Esterase Urine RBC Urine WBC Hyaline Casts Urine Mucus Micro UA Comment Ur Microscopic Review Urine Culture Comments Nasal Screen MRSA (PCR) 07/25/18 05:22 WBC RBC Hgb Hct MCV MCH MCHC RDW Plt Count MPV Neut % (Auto) Lymph % (Auto) [place] % (Auto) Eos % (Auto) Baso % (Auto) Neut # (Auto) Lymph # (Auto) Stanton # (Auto) Eos # (Auto) Baso # (Auto) WBC Differential Differential Comment APTT Puncture Site Patient Temperature O2 Saturation ABG pH ABG pCO2 ABG pO2 ABG HCO3 ABG O2 Content ABG Base Excess ABG Methemoglobin Juan Test Hemoglobin Carboxyhemoglobin O2 Delivery Device Liter Flow Vent Setting Inspired O2 Critical Value Sodium Potassium Chloride Carbon Dioxide Anion Gap BUN Creatinine Estimated GFR POC Glucose 128 H Random Glucose Calcium Phosphorus Magnesium Total Bilirubin AST ALT Alkaline Phosphatase Total Creatine Kinase Troponin I Total Protein Albumin Triglycerides Cholesterol LDL Cholesterol, Calc HDL Cholesterol Cholesterol/HDL Ratio TSH Free T4 Free T3 Urine Color Urine Clarity Urine pH Ur Specific [place] Urine Protein Urine Glucose (UA) Urine Ketones Urine Occult Blood Urine Nitrate Urine Bilirubin Urine Urobilinogen Ur Leukocyte Esterase Urine RBC Urine WBC Hyaline Casts Urine Mucus Micro UA Comment Ur Microscopic Review Urine Culture Comments Nasal Screen MRSA (PCR) Microbiology 07/24/18 10:25 Stool Stool Occult Blood (CAROLYN) - Final Hemoccult negative 07/23/18 13:25 Blood - Peripheral Aerobic Blood Culture - Preliminary No growth in 1 day 07/23/18 13:25 Blood - Peripheral Anaerobic Blood Culture - Preliminary No growth in 1 day 07/23/18 13:20 Blood - Peripheral Aerobic Blood Culture - Preliminary No growth in 1 day 07/23/18 13:20 Blood - Peripheral Anaerobic Blood Culture - Preliminary No growth in 1 day 07/23/18 17:23 Urine - Clean Catch Urine Legionella Antigen - Final Presumptive negative for Legionella pneumophila serogroup 1 antigen in urine, suggesting no recent or recurrent infection. Infection due to Legionella cannot be ruled out since other serogroups and species may cause disease, antigen may not be present in urine in early infection, and the level of antigen present in the urine may be below the detection limit of the test. 07/23/18 17:23 Urine - Clean Catch Urine Streptococcus pneumoniae Antigen ( M - Final Presumptive negative for streptococcus pneumoniae antigen, suggesting no current or recent infection. Infection due to Streptococcus pneumoniae cannot be ruled out since the antigen present in the sample may be below the detection limit of the test. - Imaging Impressions Chest X-Ray 07/24/18 12:10 CONCLUSION: 1. Endotracheal tube and nasogastric tube now in place. 2. No change in mild bilateral lower lung zone opacity. Chest X-Ray 07/24/18 18:39 CONCLUSION: Left-sided catheter with an acute bend at the aortic arch. Intravenous location cannot be confirmed. No evidence of pneumothorax. A lateral airspace disease and effusions COPD Chest X-Ray 07/24/18 19:14 CONCLUSION: New right jugular central venous catheter which appears to be in appropriate position. No evidence of pneumothorax. Left-sided line as described. No change in bilateral airspace disease and bilateral effusions. Head CT 07/25/18 00:00 CONCLUSION: 1. Bilateral cystic hygromas/chronic subdural hematomas that are right greater than left and with associated 6 mm of leftward midline shift. 2. No acute blood or evidence of an acute ischemic event. 3. Atrophy. . Chest X-Ray 07/25/18 06:00 CONCLUSION: Bibasilar consolidation without significant change. Assessment and Plan - Assessment (1) Atrial flutter Code(s): I48.92 - Unspecified atrial flutter Status: Acute Plan: eliquis held due to chronic subdural hematomas seen on CT. currently rate controlled; echo pending. (2) COPD exacerbation Code(s): J44.1 - Chronic obstructive pulmonary disease with (acute) exacerbation Status: Acute Plan: most likely cause of acute presentation, mgt by [facility] (3) Elevated troponin Code(s): R74.8 - Abnormal levels of other serum enzymes Status: Acute Plan: likely type II, not ACS, pt had declined ischemic w/u prior to requiring intubation; continue medical mgt - Attending Attestation Presuming no major findings on echo, his cardiac issues appear stable. One of my partners will be available as needed, please call with questions. (1) Atrial flutter Qualifiers: Atrial flutter type: unspecified Qualified Code(s): I48.92 - Unspecified atrial flutter
--- NOTE | 2018-07-25 09:15 | P.CONNS ---
History of Present Illness Consult date: 07/25/18 Reason for Consult: subdural hematoma Primary Care Provider: No Primary Care Physician Chief Complaint: Shortness of breath History of Present Illness: This is a 87 year old male with history of oxygen-dependent COPD, CAD , and prostate cancer presented to the ED via [facility] for sudden onset shortness of breath. The patient reports this morning when he got up to go to the restroom he suddenly became very dyspneic to the point where he could not get off the commode for about 45 minutes. He states he was too short of breath to even make a phone call. When he was finally able to catch his breath he gave himself a breathing treatment with some relief. He states he checked his oxygen and it was 74%. He states he also took his temperature and it was 99.8 which is high for him because he states he is always below 98. He is on 2L nasal cannula 21/06. He states he had no chest pain, dizziness, lightheadedness, or syncope during this time. He has had no significant cough recently. When [facility] arrived they confirmed his O2 sats in the 70s despite 2L of his home O2. He was placed on 4L and given an additional breathing treatment. His heart rate was reportedly in the high 100s and he was given IV Cardizem. He has been recently hospitalized for a COPD exacerbation 06/21 where he was discharged with home O2. He states since he was discharged from the hospital he has had some swelling and mild erythema of his extremities especially his RLE. He attributed this to the prednisone. CT brain showed bilateral subdural hematomas. Neurosurgical consultation was requested Review of Systems All other systems reviewed negative except as stated in HPI Eyes: Denies blind spots, Denies blurry vision, Denies bulging eyes, Denies change in vision, Denies double vision, Denies discharge, Denies dry eyes, Denies floaters, Denies irritation, Denies itchy eyes, Denies loss of vision, Denies pain, Denies requires corrective lenses, Denies sensitivity to light, Denies other Ears, Nose, Mouth, and Throat: Denies abnormal hearing, Denies bleeding gums, Denies bad breath, Denies change in voice, Denies dental pain, Denies difficulty swallowing, Denies dizziness, Denies dry mouth, Denies ear discharge , Denies ear pain, Denies facial pain, Denies headache(s), Denies hearing loss, Denies hoarseness, Denies lip swelling, Denies nosebleed, Denies mouth lesions, Denies mouth pain, Denies nasal congestion, Denies nasal discharge, Denies nasal obstruction, Denies nasal trauma, Denies neck lump, Denies neck pain, Denies nose pain, Denies pain with swallowing, Denies poor balance, Denies post nasal drip, Denies ringing in the ears, Denies sinus pain, Denies sinus pressure , Denies sore throat, Denies throat swelling, Denies tongue swelling, Denies other Respiratory: Reports cough, Reports shortness of breath, Reports shortness of breath with activity, Reports wheezing Gastrointestinal: Denies abdominal pain, Denies belching, Denies black, tarry stools, Denies bloating, Denies bright, red blood in stools, Denies change in bowel habits, Denies constant urge to pass stool, Denies change in stools, Denies coffee ground vomit, Denies constipation, Denies cramping, Denies difficulty swallowing, Denies excessive passing of gas, Denies feeling full early, Denies heartburn, Denies incontinent of stools, Denies loose stools, Denies nausea, Denies pain with swallowing, Denies vomiting, Denies vomiting blood, Denies other Genitourinary: Denies blood in semen, Denies blood in urine, Denies decreased urination, Denies difficulty urinating, Denies difficulty with ejaculations, Denies erectile dysfunction, Denies genital lesions, Denies genital pain, Denies painful urination, Denies side pain, Denies frequent nighttime urination , Denies painful ejaculations, Denies penile discharge, Denies scrotal swelling , Denies testicle lump, Denies testicle pain, Denies urinary frequency, Denies urinary hesitancy, Denies urinary incontinence, Denies urinary urgency, Denies other Psychiatric: Denies abnormal sleep pattern, Denies anxiety, Denies behavioral changes, Denies change in appetite, Denies change in sex drive, Denies confusion , Denies depression, Denies difficulty concentrating, Denies hearing things others do not hear, Denies hopelessness, Denies irritability, Denies lack of enjoyment, Denies memory loss, Denies mood swings, Denies panic attacks, Denies paranoia, Denies seeing things others do not see, Denies sensing things others do not sense, Denies tactile hallucinations, Denies thoughts of hurting/killing others, Denies thoughts of hurting/killing yourself, Denies other PMFSH - History History Provided By: Patient - Medical History Medical History: Medical History (Last Reviewed 07/25/18 @ 21:05 by Serjio Dhaliwal MD) Emphysema of lung Anxiety BPH (benign prostatic hyperplasia) Olivares's esophagus COPD (chronic obstructive pulmonary disease) Degeneration of intervertebral disc Diverticular disease of colon Glaucoma Hemorrhoids History of prostate cancer Myocardial infarct, old Osteoarthritis Polyp of colon Sensorineural hearing loss (SNHL) of both ears Shoulder pain Stenosis of rectum and anus Thyrotoxicosis with or without goiter - Surgical History Surgical History: Surgical History (Last Reviewed 07/25/18 @ 21:06 by Serjio Dhaliwal MD) History of appendectomy Hx of cholecystectomy S/P TURP - Family History Family History: Family History (Last Reviewed 07/25/18 @ 21:06 by Serjio Dhaliwal MD) Father Heart disease Mother Colon cancer - Tobacco History Second Hand Smoke Exposure: No Smoking Status: Former smoker (Quit smoking 1989) Tobacco Type: Cigarettes - Alcohol History How Often Do You Have a Drink Containing Alcohol: Never - Substance Use History Substance History: No History of Abuse - Travel History Recent Travel in the [place] Within the Last 8 Weeks: No Recent Travel Out of the Country Within the Last 8 Weeks: No - Immunization History Tetanus Immunization: <5 Years Tetanus Immunization Year if Known: 2012 Hx Influenza Vaccine This Season: Yes Medications and Allergies Active Medications: Active Medications Acetaminophen (Tylenol Liq) 650 mg PO Q6H PRN PRN Reason: FEVER Al Hydroxide/Mg Hydroxide (Milk Of Magnesia Liq) 30 ml PO Q12H PRN PRN Reason: Mild Constipation Albuterol (Duoneb Neb (Heydi)) 1 ampul NEB Q4HR NEB [facility] Last Admin: 07/25/18 08:04 Dose: 1 ampul Albuterol (Albuterol Neb (Prn)) 2.5 mg NEB Q2HR NEB PRN PRN Reason: DYSPNEA Apixaban (Eliquis) 5 mg PO BID [facility] Last Admin: 07/24/18 20:17 Dose: 5 mg Artificial Tears (Genteal Severe Dry Eye Relief 0.3% Opth Gel) 1 drops EACH EYE BID [facility] Last Admin: 07/25/18 08:07 Dose: 1 drops Aspirin (Aspirin Chew) 162 mg PO DAILY [facility] Azithromycin (Zithromax) 500 mg PO Q24H [facility] Last Admin: 07/24/18 14:05 Dose: 500 mg Bisacodyl (Dulcolax Supp) 10 mg RECTAL DAILY PRN PRN Reason: SEVERE CONSITIPATION Brimonidine Tartrate (Alphagan 0.2% Opth Drops) 1 drops EACH EYE BID [facility] Last Admin: 07/25/18 08:06 Dose: 1 drops Budesonide/Formoterol Fumarate (Symbicort 160/4.5 Mcg Inh) 2 puff INH BID [facility] Last Admin: 07/25/18 08:06 Dose: 2 puff Chlorhexidine Gluconate (Peridex 0.12% Oral Kit) 15 ml OROPHARYNG BID@0800, 1999 [facility] Last Admin: 07/25/18 08:07 Dose: 15 ml Dextrose (D50w Vial) 50 ml IV.PUSH UNSCH PRN PRN Reason: PER HYPOGLYCEMIA PROTOCOL Diltiazem HCl (Cardizem) 60 mg PO QID [facility] Last Admin: 07/25/18 08:05 Dose: 60 mg Finasteride (Proscar) 5 mg PO DAILY [facility] Last Admin: 07/25/18 08:09 Dose: Not Given Furosemide (Lasix Inj) 40 mg IV.PUSH DAILY [facility] Last Admin: 07/25/18 08:05 Dose: 40 mg Gabapentin (Neurontin) 100 mg PO TID [facility] Last Admin: 07/25/18 08:05 Dose: 100 mg Glucagon (Glucagon Inj) 1 mg OTHER UNSCH PRN PRN Reason: for Hypoglycemia Protocol Piperacillin/Tazobactam/Dextrose (Zosyn 4.5 Gm Premix) 4.5 gm in 100 mls @ 200 mls/hr IV.SIG Q6H [facility] Last Admin: 07/25/18 08:05 Dose: 200 mls/hr Fentanyl (Fentanyl 10 Mcg/Ml Premix Drip) 2,500 mcg in 250 mls @ 5 mls/hr IV.SIG TITRATE PRN; Protocol PRN Reason: Per Protocol Last Admin: 07/25/18 08:05 Dose: 200 mcg/hr, 20 mls/hr Propofol (Diprivan 1000 Mg/100 Ml Inj) 1,000 mg in 100 mls @ 2.271 mls/hr IV.CONT TITRATE PRN; Protocol PRN Reason: Per Protocol Last Titration: 07/24/18 16:01 Dose: 0 mcg/kg/min, 0 mls/hr Magnesium Sulfate Inj 4 gm/ (Sodium Chloride) 100 mls @ 50 mls/hr IV.SIG UNSCH PRN PRN Reason: For Magnesium 0.9 - 1.1 mg/dL Potassium Chloride (Kcl 40 Meq Premix Inj) 40 meq in 100 mls @ 25 mls/hr IV.SIG Q2H PRN PRN Reason: For Potassium 2.8 - 3.2 mEq/L Potassium Chloride (Kcl 20 Meq Premix Inj) 20 meq in 100 mls @ 50 mls/hr IV.SIG Q2H PRN PRN Reason: For Potassium 3.3 - 3.5 mEq/L Potassium Chloride (Kcl 40 Meq Premix Inj) 40 meq in 100 mls @ 25 mls/hr IV.SIG UNSCH PRN PRN Reason: For Potassium 3.3 - 3.5 mEq/L Potassium Chloride (Kcl 20 Meq Premix Inj) 20 meq in 100 mls @ 50 mls/hr IV.SIG Q2H PRN PRN Reason: For Potassium 2.8 - 3.2 mEq/L Potassium Phosphate 30 mmol/ (Sodium Chloride) 260 mls @ 42 mls/hr IV.SIG UNSCH PRN PRN Reason: SEE LABEL COMMENTS Sodium Phosphate 30 mmol/ (Sodium Chloride) 260 mls @ 42 mls/hr IV.SIG UNSCH PRN PRN Reason: For Phosphorus < 2.5 mg/dL Magnesium Sulfate Inj 2 gm/ (Sodium Chloride) 100 mls @ 50 mls/hr IV.SIG UNSCH PRN PRN Reason: For Magnesium 1.2 - 1.6 mg/dL Diltiazem HCl 125 mg/ Sodium (Chloride) 125 mls @ 5 mls/hr IV.CONT TITRATE PRN ; Protocol PRN Reason: Per Protocol Norepinephrine Bitartrate 4 mg (/ Sodium Chloride) 250 mls @ 7.5 mls/hr IV.SIG TITRATE PRN; Protocol PRN Reason: Per Protocol Last Titration: 07/25/18 02:50 Dose: 1 mcg/min, 3.75 mls/hr Midazolam HCl (Versed Inj) 50 mg in 50 mls @ 2 mls/hr IV.CONT TITRATE PRN; Protocol PRN Reason: Per Protocol Last Titration: 07/24/18 23:36 Dose: 0 mg/hr, 0 mls/hr Insulin Aspart (Novolog Insulin Correctional Sugar Inj) 0 unit SQ Q6HR [facility]; Protocol Last Admin: 07/25/18 05:33 Dose: Not Given Lactulose (Lactulose Liq) 30 ml PO DAILY PRN PRN Reason: SEVERE CONSITIPATION Lansoprazole (Prevacid Solutab) 30 mg NG/OG DAILY [facility] Last Admin: 07/25/18 08:06 Dose: 30 mg Magnesium Oxide (Mag-Ox) 800 mg PO UNSCH PRN PRN Reason: For Magnesium 1.2 - 1.6 mg/dL Methimazole (Tapazole) 5 mg PO DAILY [facility] Last Admin: 07/25/18 08:05 Dose: 5 mg Methylprednisolone Sodium Succinate (Solumedrol Inj) 40 mg IV.PUSH Q12H [facility] Last Admin: 07/25/18 08:06 Dose: 40 mg Nitroglycerin (Nitrostat Sl) 0.4 mg SL Q5M PRN PRN Reason: CHEST PAIN Potassium Bicarb/Potassium Chloride (K-Lyte Cl Eff) 50 meq PO UNSCH PRN PRN Reason: For Potassium 3.3 - 3.5 mEq/L Potassium Phosphate (K-Phos Original) 2,000 mg PO Q4H PRN PRN Reason: Phosphorus Less Than 2.5 mg/dL Potassium Phosphate (K-Phos Original) 2,000 mg PO UNSCH PRN PRN Reason: SEE LABEL COMMENTS Senna/Docusate Sodium (Cheryl-Colace) 1 tab PO BID [facility] Last Admin: 07/25/18 08:05 Dose: 1 tab Sennosides (Senokot) 17.2 mg PO Q12H PRN PRN Reason: Moderate Constipation Sodium Chloride (Ns Flush) 2 ml IV.FLUSH BID [facility] Last Admin: 07/25/18 08:07 Dose: 2 ml Sodium Chloride (Ns Flush) 2 ml IV.FLUSH PRN PRN PRN Reason: FLUSH AFTER USING IV ACCESS Sodium Chloride (Ns Flush) 0 ml IV.FLUSH DAILY [facility] Last Admin: 07/25/18 08:07 Dose: 2 ml Terbutaline Sulfate (Brethine Inj) 1 mg SQ UNSCH PRN PRN Reason: For Extravasation Terbutaline Sulfate (Brethine Inj) 1 mg SQ UNSCH PRN PRN Reason: For Extravasation Allergies Allergy/AdvReac Type Severity Reaction Status Date / Time codeine Allergy Severe Irritabilit Verified 07/23/18 13:22 y/Anxiety diclofenac Allergy Severe Rash Verified 07/23/18 13:22 neomycin Allergy Intermediate Rash Verified 07/23/18 13:22 Home Medications Medication Instructions Recorded Confirmed Type aspirin [Aspirin Low Dose] 81 mg PO DAILY 06/21/18 07/23/18 History brimonidine 1 drp OPHTHALMIC (EYE) BID 06/21/18 07/23/18 History budesonide-formoterol 2 puff INHALATION BID 06/21/18 07/23/18 History doxazosin 4 mg PO DAILY 06/21/18 07/23/18 History finasteride 5 mg PO DAILY 06/21/18 07/23/18 History gabapentin 100 mg PO TID 06/21/18 07/23/18 History methimazole 5 mg PO DAILY 06/21/18 07/23/18 History tramadol 50 mg PO QID 06/21/18 07/23/18 History furosemide [Lasix] 20 mg PO DAILY 07/23/18 07/23/18 History potassium chloride 10 meq PO DAILY 07/23/18 07/23/18 History Exam Vital signs: Vital Signs 07/24/18 10:42 07/24/18 11:50 07/24/18 12:00 Temperature 97.7 F Pulse Rate 114 H 133 H 125 H Respiratory Rate 25 H 36 H 18 Blood Pressure 121/67 Pulse Oximetry 100 07/24/18 12:15 07/24/18 14:05 07/24/18 15:22 Temperature Pulse Rate 80 Respiratory Rate 18 18 18 Blood Pressure Pulse Oximetry 100 07/24/18 16:00 07/24/18 19:30 07/24/18 20:00 Temperature 97.9 F 98.3 F Pulse Rate 81 77 Respiratory Rate 18 18 18 Blood Pressure 110/64 116/66 Pulse Oximetry 100 100 100 07/24/18 20:03 07/24/18 22:20 07/24/18 23:30 Temperature Pulse Rate 76 60 Respiratory Rate 18 18 18 Blood Pressure Pulse Oximetry 100 07/25/18 00:00 07/25/18 00:30 07/25/18 02:57 Temperature 97.5 F L Pulse Rate 52 L Respiratory Rate 18 18 Blood Pressure 126/56 L Pulse Oximetry 100 100 100 07/25/18 03:56 07/25/18 04:00 07/25/18 04:35 Temperature 98 F Pulse Rate 78 78 Respiratory Rate 18 18 18 Blood Pressure 121/71 Pulse Oximetry 100 100 07/25/18 08:00 07/25/18 08:09 Temperature Pulse Rate 80 Respiratory Rate 19 19 Blood Pressure Pulse Oximetry 100 Intake & Output 07/24/18 07/25/18 07/25/18 18:59 06:59 18:59 Intake Total 1250 / 1250 350 / 350 250 / 250 Output Total 950 / 950 500 / 500 Balance 300 / 300 -150 / -150 250 / 250 Weight 76.1 kg Intake: IV 1250 / 1250 350 / 350 250 / 250 Heparin/D5W 25,000 U/250 mL 25, 50 / 50 000 unit In 250 ml @ 9 mls/hr IV.CONT TITRATE PRN Rx#: [id number] Versed Inj 50 mg In 50 ml @ 2 50 / 50 MG/HR 2 mls/hr IV.CONT TITRATE PRN Rx#:[id number] Zosyn 4.5 GM Premix 4.5 gm In 200 / 200 200 / 200 100 ml @ 200 mls/hr IV.SIG Q6H [facility] Rx#:[id number] KCl 40 mEq Premix Inj 40 meq In 100 / 100 100 ml @ 25 mls/hr IV.SIG ONCE ONE Rx#:[id number] NS Inj 1,000 ML @ Wide Open IV. 1000 / 1000 0 / 0 SIG BOLUS ONE Rx#:[id number] fentaNYL 10 mcg/mL Premix Drip 250 / 250 2,500 mcg In 250 ml @ 50 MCG/HR 5 mls/hr IV.SIG TITRATE PRN Rx #:[id number] Oral 0 / 0 Output: Urine Amount (Catheter) 950 / 950 500 / 500 Indwelling Urethral Catheter 950 / 950 500 / 500 Other: Date of Last Bowel Movement 07/24/18 # Bowel Movements 0 0 Narrative: The patient is intubated and sedated. Localizes to painful stimuli with all 4 extremities. Cranial Nerves: Pupils equal, 3 mm round, reactive to light. Eyes appear conjugated. There was no nystagmus, no papilledema. Face musculature appeared symmetrical at rest. Face sensation, olfaction, and hearing cannot be adequately assessed due to the patient's neurological condition. The patient has a corneal reflex. The patient has a gag reflex. The sternocleidomastoid and trapezius were symmetrical. Cervical Spine: The patient's neck is soft, supple, without nuchal rigidity. Motor: His muscle tone and bulk are normal. He moves purposefully all 4 extremities symmetrically. Reflexes: Deep tendon reflexes are 2+ and symmetrical in the biceps, triceps, and brachioradialis, bilaterally, in the upper extremities. In the lower extremities, the patellar and ankles are 2+, bilaterally. There is a bilateral plantar flexion response. There is no clonus or other abnormal reflexes noted. Sensory: On examination there there is response to painful stimuli, localizing with both upper and lower extremities. Cerebellar: Examination cannot be adequately assessed due to the patient's neurological condition. Lungs: clear Heart: Regular rhythm and rate Skin: warm and dry Results - Laboratory Findings CBC and BMP: 07/25/18 04:45 07/25/18 00:05 Abnormal lab findings: Abnormal Labs 07/23/18 07/23/18 07/23/18 13:26 13:26 13:26 WBC RBC 4.24 L MCV 101.4 H Neut % (Auto) 80.9 H Lymph % (Auto) 7.2 L [place] % (Auto) 10.6 H Neut # (Auto) Lymph # (Auto) 0.5 L APTT ABG pH ABG pCO2 ABG pO2 ABG HCO3 ABG Base Excess BUN Estimated GFR 78 L POC Glucose Random Glucose Calcium Troponin I 0.29 H B-Natriuretic Peptide 200 H Total Protein Albumin Cholesterol Procalcitonin Free T3 Urine Occult Blood Urine Mucus 07/23/18 07/23/18 07/23/18 17:23 19:12 19:12 WBC RBC MCV Neut % (Auto) Lymph % (Auto) [place] % (Auto) Neut # (Auto) Lymph # (Auto) APTT ABG pH ABG pCO2 ABG pO2 ABG HCO3 ABG Base Excess BUN Estimated GFR POC Glucose Random Glucose Calcium Troponin I 0.36 H B-Natriuretic Peptide Total Protein Albumin Cholesterol Procalcitonin 0.11 H Free T3 Urine Occult Blood Urine Mucus Few H 07/24/18 07/24/18 07/24/18 00:05 00:05 03:37 WBC 3.8 L RBC 4.03 L MCV Neut % (Auto) 89.9 H Lymph % (Auto) 7.1 L [place] % (Auto) Neut # (Auto) Lymph # (Auto) 0.3 L APTT 66.7 H D ABG pH ABG pCO2 ABG pO2 ABG HCO3 ABG Base Excess BUN Estimated GFR POC Glucose Random Glucose Calcium Troponin I 0.33 H B-Natriuretic Peptide Total Protein Albumin Cholesterol Procalcitonin Free T3 Urine Occult Blood Urine Mucus 07/24/18 07/24/18 07/24/18 03:37 03:37 11:05 WBC RBC MCV Neut % (Auto) Lymph % (Auto) [place] % (Auto) Neut # (Auto) Lymph # (Auto) APTT 49.7 H D ABG pH 7.45 H ABG pCO2 ABG pO2 ABG HCO3 28 H ABG Base Excess 4.2 H BUN 19 H Estimated GFR 86 L POC Glucose Random Glucose 126 H Calcium 8.3 L Troponin I B-Natriuretic Peptide Total Protein Albumin Cholesterol Procalcitonin Free T3 Urine Occult Blood Urine Mucus 07/24/18 07/24/18 07/24/18 14:26 14:45 17:00 WBC RBC MCV Neut % (Auto) Lymph % (Auto) [place] % (Auto) Neut # (Auto) Lymph # (Auto) APTT ABG pH ABG pCO2 46 H ABG pO2 360 H ABG HCO3 29 H ABG Base Excess 5.1 H BUN Estimated GFR POC Glucose Random Glucose Calcium Troponin I B-Natriuretic Peptide Total Protein Albumin Cholesterol 105 L Procalcitonin Free T3 Urine Occult Blood Small H Urine Mucus Few H 07/24/18 07/24/18 07/25/18 17:20 23:42 00:05 WBC RBC 4.05 L MCV 100.4 H Neut % (Auto) 90.6 H Lymph % (Auto) 3.6 L [place] % (Auto) Neut # (Auto) 9.1 H Lymph # (Auto) 0.4 L APTT ABG pH ABG pCO2 ABG pO2 ABG HCO3 ABG Base Excess BUN Estimated GFR POC Glucose 114 H 164 H Random Glucose Calcium Troponin I B-Natriuretic Peptide Total Protein Albumin Cholesterol Procalcitonin Free T3 Urine Occult Blood Urine Mucus 07/25/18 07/25/18 07/25/18 00:05 04:45 05:22 WBC RBC 3.99 L MCV Neut % (Auto) Lymph % (Auto) [place] % (Auto) Neut # (Auto) Lymph # (Auto) APTT ABG pH ABG pCO2 ABG pO2 ABG HCO3 ABG Base Excess BUN 23 H Estimated GFR 72 L POC Glucose 128 H Random Glucose 132 H Calcium 7.9 L Troponin I 0.25 H B-Natriuretic Peptide Total Protein 5.5 L D Albumin 2.9 L D Cholesterol Procalcitonin Free T3 1.31 L Urine Occult Blood Urine Mucus Assessment and Plan - Plan 87 year old male with history of oxygen-dependent COPD, CAD, and prostate cancer presented to the ED via [facility] for sudden onset shortness of breath. (1) Pneumonia Code(s): J18.9 - Pneumonia, unspecified organism Status: Acute (2) COPD exacerbation Code(s): J44.1 - Chronic obstructive pulmonary disease with (acute) exacerbation Status: Acute (3) Subdural hygroma versus hematoma Subdural hemAtomas. I reviewed his CT. Neuro checks every 1 hr. Recommend MRI brain Shortness of breath - Well's score elevated at 7.5 - Will check CTA chest to evaluate for PE but given elevated Well's score will start heparin drip - CXR showing bibasilar airspace opacities, R>L per my read. Clinically he doesn 't have crackles and will therefore treat as pneumonia (see below) and possible PE - Supplemental O2 - Check 2D echo Pneumonia - Since recently hospitalized will treat with Zosyn and Azithro for HCAP - Check sputum cultures - Check urine legionella and pneumococcal - Tylenol PRN fever COPD exacerbation - Secondary to pneumonia - Antibiotics as above - SoluMedrol 40 mg IV Q12 - DuoNeb Q4H scheduled - Albuterol PRN CAD - Concern for ACS given acute onset shortness of breath and elevation of troponin at 0.29 - EKG with ST-elevation and LBBB though essentially unchanged from prior EKG - Starting heparin drip for possible PE/ACS - Monitor serial enzymes and EKGs - Continue home ASA - Start low-dose carvedilol - Check 2D echo - Consult cardiology for further eval History of prostate cancer - Continue home finasteride and doxazosin Renal: Continue to monitor closely urine output, BUN and creatinine Endocrine: Continue to Monitor serial Acu checks and SSI as needed in detail Continue Protonix for stress ulcer prophylaxis Continue Paddy hose and SCD's for DVT prophylaxis Further recommendations will be provided depending on the patient's clinical evaluation and follow up studies. Discussed Condition With: Patient, Dr Martinez, physician
--- NOTE | 2018-07-25 10:12 | P.DIET ---
Nutritional Evaluation Type of nutrition evaluation: initial Nutrition consult regarding: Tube Feeding Subjective Subjective Comments: Pt had a recent hospitalization for COPD on 06/21-06/23. Objective - Diagnosis COPD Exacerbation, elevated troponin, pulmonary infiltrate, A-Flutter - Objective % IBW: 97 (IBW = 172#) Body Weight Used for Calculations: Actual (76.1 kg) Energy Needs - Lower Range (kCal/kg): 25 Energy Needs - Upper Range (kCal/kg): 30 Lower Limit kCal/kg (kCals): 1,903 Upper Limit kCal/kg (kCals): 2,283 Lower Limit Protein Factor (Grams per Kg): 1.0 Upper Limit Protein Factor (Grams per Kg): 1.5 Lower Protein Needs (Protein): 76 Upper Protein Needs (Protein): 114 Dietitian Reviewed in Medical Record: Curent medications, Intake & Output, Labs , Medical history, Tube feeding Diet Order: NPO Assessment Assessment: Pt is at high nutrition risk, intubated and needs TFing to meet needs. Current TF order is for Glucerna 1.5 @ 45 mls/hr goal. To meet needs with Glucerna 1.5, recommend goal rate of 55 mls/hr to provide 1980 kcals, 109 gms protein and 1002 mls of free water. Some additional kcals will be provided when the pt receives propofol (1.1 kcal/ml). Recommendations: Glucerna 1.5 @ 55 mls/hr goal Dietitian to Monitor: Lab values, Tube feeding tolerance, Weight change, Medical course
[2018-07-25] MEDS ORDERED: Gadobutrol PF 7.5 MMOL/7.5 ML Vial (for RAD) IV.SIG ONE (11:07)
--- NOTE | 2018-07-25 12:07 | MR ---
EXAM DATE: 07/25/2018 11:32 AM EDT AGE/SEX: 87 years / Male INDICATIONS: . Abnormal CT. CLINICAL DATA: This is the patient's subsequent encounter. Patient reports that signs and symptoms h ave been present for 2 days and indicates a pain score of 0/10. MEDICAL/SURGICAL HISTORY: Chronic obstructive pulmonary disease. Carcinoma, prostatic. Hypert ension. AK, DVT, PE Appendectomy. Cholecystectomy. prostectomy COMPARISON: [facility] [place] 07/25/2018. . TECHNIQUE: Multiplanar, multisequence examination of the brain was performed without and with 7.5 ml Gadavist (gadobutrol) contrast as a single exam dose. FINDINGS: Cerebrum: Redemonstration of bilateral CSF intensity subdural collections. These collections are asym metric in size with the right measuring 16 mm and the left measuring 10 mm. There is associated 5 mm right to left midline shift. Ventricles are otherwise normal in size given the degree of atrophy and symmetrical. There is moderate diffuse cerebral atrophy consistent with age. The pituitary gland and suprasellar cistern are normal in configuration. White Matter: No significant signal abnormalities are seen in the white matter. Posterior Fossa: The cerebellum and brainstem are intact. The 4th ventricle is midline. The cerebel lopontine angle is unremarkable. The cerebellar tonsils are normal in position. Diffusion Imaging: No focal areas of restricted diffusion are seen. No evidence of acute infarction . Extracranial: The visualized portions of the orbits and paranasal sinuses are unremarkable. Post Contrast: No abnormal areas of parenchymal or dural enhancement. No evidence of blood-brain ba rrier breakdown. CONCLUSION: 1. Redemonstration of bilateral cystic hygromas, slightly asymmetric (right greater than left) and a ssociated 5 mm right to left midline shift. 2. Otherwise, no acute abnormality. Specifically, no acute hemorrhage, hydrocephalus or abnormal enh ancement. Electronically signed by: Ermias Avery MD 07/25/2018 12:06 PM EDT
[2018-07-25 13:16] LABS: ABG Base Excess 6.4 mmol/L (-2-2); ABG PCO2 53 mmHg (38-42); ABG PO2 105 mmHG (61-120)
[2018-07-25] MEDS: Azithromycin 250 MG Tablet PO SCH (15:39)
--- NOTE | 2018-07-25 18:35 | MB ---
cc: Fabio Stovall MD,Howard Stuart MD DATE: 07/25/2018 REQUESTING PHYSICIAN: Howard Guerra MD REASON FOR CONSULTATION: Respiratory failure. HISTORY OF PRESENT ILLNESS: Mr. Alba is a pleasant 87-year-old male who is known to me from the office. He has severe COPD and is oxygen dependent. Currently, he is on nasal cannula. He has mild shortness of breath. No fever or chills and no night sweats. PAST MEDICAL HISTORY: Significant for a history of hypertension, COPD, history of coronary artery disease, history of CA of the prostate. MEDICATIONS: He is currently taking albuterol nebulizer treatments, Eliquis 5 mg twice a day, aspirin 162 mg a day, Zithromax 500 mg a day, Symbicort twice a day, diltiazem 60 mg 4 times a day, finasteride 5 mg a day, Lasix 40 mg IV push, Neurontin 100 mg 3 times a day, insulin coverage, methimazole 5 mg a day. ALLERGIES: HE IS ALLERGIC TO CODEINE, DICLOFENAC AND NEOMYCIN. SOCIAL HISTORY: He is a previous smoker. FAMILY HISTORY: Not available or noncontributory. REVIEW OF SYSTEMS: Feels weak. Appetite is poor. No headache. PHYSICAL EXAMINATION: GENERAL: Elderly male mildly short of breath. VITAL SIGNS: Blood pressure 112/67, heart rate 86, respirations 21, temperature 98. HEENT: Pupils are equal and reactive to light. Oral mucosa and nasal mucosa normal. NECK: Supple. No JVD noted. CHEST: Equal bilaterally. He has a few rhonchi. HEART: S1, S2 normal. ABDOMEN: Benign. EXTREMITIES: No edema. LABORATORY DATA: WBC 8.3, hemoglobin 13.1, hematocrit 39.9, MCV 99, platelet count 176. Sodium 145, potassium 3.9, chloride 105, CO2 of 31, BUN 23, creatinine 0.98. IMPRESSION: 1. Respiratory failure, status post extubation. 2. Severe chronic obstructive pulmonary disease. 3. Increased troponin. 4. Subdural hematoma. PLAN: I discussed with the patient and his family at the bedside. He is extubated. We will check a swallow evaluation and start feeding him. Continue his antibiotic and aerosol treatments and supplement his oxygen. Further treatment will depend on the course in the hospital. Thank you, Dr. Guerra, for this consult. MD Rajni Robertson , 03:36 PM , 03:44 PM
[2018-07-26] MEDS: Piperacil/Tazo 4.5 GM Premix 4.5 GM/100 ML BAG IV.SIG SCH ×4 (02:38→20:56)
[2018-07-26] MEDS: Oral Hygiene Kit OROPHARYNG SCH ×3 (05:56→15:26)
[2018-07-26 06:02] LABS: Hematocrit 39.4 % (39.0-51.0); Hemoglobin 13.3 gm/dL (13.0-17.0); Lymph # (Auto) 0.3 th/mm3 (1.0-4.8); Lymph % (Auto) 3.8 % (9.0-44.0); Mean Corpuscular HGB Conc 33.8 % (32.0-36.0); Mean Corpuscular Hemoglobin 33.6 pg (27.0-34.0); Mean Corpuscular Volume 99.2 fL (80.0-100.0); Mean Platelet Volume 8.1 fL (7.0-11.0); Mono # (Auto) 0.4 th/mm3 (0.0-0.9); Neut # (Auto) 7.2 th/mm3 (1.8-7.7); Neut % (Auto) 91.2 % (16.0-70.0); Platelet Count 169 th/mm3 (150-450); Red Blood Count 3.97 mil/mm3 (4.50-5.90); Red Cell Distribution Width 12.6 % (11.6-17.2); White Blood Count 7.9 th/mm3 (4.0-11.0)
[2018-07-26] MEDS: Insulin NovoLOG Aspart Correctional Sugar Inj SQ SCH ×3 (06:26→18:12)
[2018-07-26 06:29] LABS: Alanine Aminotransferase 34 U/L (12-78); Albumin 2.8 g/dL (3.4-5.0); Anion Gap 9 meq/L (5-15); Aspartate Aminotransferase 16 U/L (15-37); Blood Urea Nitrogen 27 mg/dL (7-18); Calcium 8.4 mg/dL (8.5-10.1); Carbon Dioxide 32.9 meq/L (21.0-32.0); Chloride 102 meq/L (98-107); Glomerular Filtration Rate 70 mL/min (>89); Glucose,Random 105 mg/dL (74-106); Magnesium 2.6 mg/dL (1.5-2.5); Phosphorus 3.2 mg/dL (2.5-4.9); Potassium 3.3 meq/L (3.5-5.1); Sodium 144 meq/L (136-145)
[2018-07-26 06:32] LABS: Alkaline Phosphatase 47 U/L (45-117); Total Protein 5.4 g/dL (6.4-8.2)
--- NOTE | 2018-07-26 08:20 | P.PNCC ---
Subjective Subjective Remarks/Hospital Course: This is an 87-year-old male. Full code. Admission 07/23/2018. Date of consultation 07/24/2018. Past medical history includes recent hospitalization 06/21-06/23 for COPD exacerbation for which he is 2 L nasal cannulae dependent as of 06/15, anxiety disorder, BPH, prostate cancer, essential hypertension, myocardial infarction, glaucoma, rectal/anal stenosis, diverticulosis, internal and external hemorrhoids, degenerative disease, emphysema seen by Dr. Stovall and known systolic heart failure ejection fraction around 40% followed by Dr. Andrade. Patient originally presented to [facility] via [facility] for sudden onset shortness of breath. The patient reports this morning when he got up to go to the restroom he suddenly became very dyspneic to the point where he could not get off the commode for about 45 minutes. His saturations are 74% but symptomatic include after receiving an albuterol/ipratropium aerosol treatment. His heart rate was reportedly in the high 100s and he was given IV diltiazem. Patient had a negative CT pulmonary comfort pulmonary embolism and lower extremity Dopplers for deep venous thrombosis. He is placed on a regimen of aggressive pulmonary toilet aerosolized medication therapy and IV methylprednisolone succinate. He remained in atrial fibrillation with rapid ventricular response the heart rate in the 100s. Troponin did bump from 0.36. Denies chest pain. Noted negative nuclear medicine scan 06/10 showing an old anteroseptal infarct. EF around 40%. No reversibility. Most recent pulmonary functions revealed F vital capacity 57% and FEV1 at 37%. Today, patient was transferred to ICU emergently for worsening respiratory failure. Discussed with patient electively intubated due to impending respiratory failure 07/25 Patient is intubated on Fentanyl infusion for sedation. Off Levophed. Afebrile. 07/26 Patient was extubated yesterday on 3L oxygen. Afebrile. Objective Vital Signs / I&O: Vital Signs 07/25/18 08:30 07/25/18 08:45 07/25/18 09:00 Temperature Pulse Rate 80 80 80 Respiratory Rate 18 18 18 Blood Pressure 127/68 107/55 L 95/57 L Pulse Oximetry 100 98 98 07/25/18 09:15 07/25/18 09:30 07/25/18 09:45 Temperature Pulse Rate 80 80 80 Respiratory Rate 18 18 18 Blood Pressure 95/56 L 99/64 L 99/57 L Pulse Oximetry 98 98 96 07/25/18 10:00 07/25/18 10:15 07/25/18 10:30 Temperature Pulse Rate 80 80 80 Respiratory Rate 18 18 18 Blood Pressure 94/53 L 108/55 L 89/53 L Pulse Oximetry 97 97 97 07/25/18 10:41 07/25/18 10:45 07/25/18 11:25 Temperature Pulse Rate 81 80 81 Respiratory Rate 22 14 Blood Pressure 99/52 L 92/59 L Pulse Oximetry 100 100 07/25/18 11:31 07/25/18 11:44 07/25/18 12:00 Temperature 98.2 F Pulse Rate 79 80 80 Respiratory Rate 17 19 18 Blood Pressure 121/80 115/79 105/64 Pulse Oximetry 100 100 99 07/25/18 12:19 07/25/18 12:26 07/25/18 13:00 Temperature Pulse Rate 107 H 82 Respiratory Rate 21 22 6 L Blood Pressure Pulse Oximetry 100 97 07/25/18 13:01 07/25/18 13:45 07/25/18 14:00 Temperature Pulse Rate 91 H 80 Respiratory Rate 19 7 L Blood Pressure 160/58 H Pulse Oximetry 97 95 94 L 07/25/18 14:01 07/25/18 15:00 07/25/18 16:00 Temperature 98.3 F Pulse Rate 80 86 79 Respiratory Rate 10 L 21 12 Blood Pressure 100/59 L 112/67 105/58 L Pulse Oximetry 93 L 93 L 94 L 07/25/18 16:18 07/25/18 17:00 07/25/18 17:01 Temperature Pulse Rate 79 81 81 Respiratory Rate 24 16 18 Blood Pressure 123/56 L Pulse Oximetry 96 96 07/25/18 17:11 07/25/18 19:26 07/25/18 20:00 Temperature 97.8 F Pulse Rate 78 78 Respiratory Rate 16 12 Blood Pressure 119/63 Pulse Oximetry 96 97 98 07/25/18 23:35 07/26/18 00:00 07/26/18 03:42 Temperature 98.1 F Pulse Rate 77 76 71 Respiratory Rate 16 23 16 Blood Pressure 110/64 Pulse Oximetry 98 07/26/18 04:00 07/26/18 07:28 Temperature 98 F Pulse Rate 61 89 Respiratory Rate 12 20 Blood Pressure 116/57 L Pulse Oximetry 96 95 Intake & Output 07/25/18 07/26/18 07/26/18 18:59 06:59 18:59 Intake Total 1060 / 1060 400 / 400 Output Total 1400 / 1400 450 / 450 Balance -340 / -340 -50 / -50 Weight 74.4 kg Intake: IV 760 / 760 200 / 200 Versed Inj 50 mg In 50 ml @ 2 10 / 10 MG/HR 2 mls/hr IV.CONT TITRATE PRN Rx#:[id number] Levophed Inj 4 MG In NS Inj 246 200 / 200 ML @ 2 MCG/MIN 7.5 mls/hr IV. SIG TITRATE PRN Rx#:[id number] Zosyn 4.5 GM Premix 4.5 gm In 200 / 200 200 / 200 100 ml @ 200 mls/hr IV.SIG Q6H IRENA Rx#:[id number] fentaNYL 10 mcg/mL Premix Drip 350 / 350 2,500 mcg In 250 ml @ 50 MCG/HR 5 mls/hr IV.SIG TITRATE PRN Rx #:[id number] Oral 240 / 240 200 / 200 Water Bolus Amount 60 / 60 Output: Urine Amount (Catheter) 1400 / 1400 450 / 450 Indwelling Urethral Catheter 1400 / 1400 450 / 450 Result Diagrams: 07/26/18 05:01 07/26/18 05:01 Other Results: Laboratory Results - last 12 hr 07/25/18 07/26/18 07/26/18 23:53 05:01 05:01 WBC 7.9 RBC 3.97 L Hgb 13.3 Hct 39.4 MCV 99.2 MCH 33.6 MCHC 33.8 RDW 12.6 Plt Count 169 MPV 8.1 Neut % (Auto) 91.2 H Lymph % (Auto) 3.8 L [place] % (Auto) 5.0 Eos % (Auto) 0.0 Baso % (Auto) 0.0 Neut # (Auto) 7.2 Lymph # (Auto) 0.3 L [place] # (Auto) 0.4 Eos # (Auto) 0.0 Baso # (Auto) 0.0 WBC Differential . Differential Comment Auto diff final Sodium 144 Potassium 3.3 L Chloride 102 Carbon Dioxide 32.9 H Anion Gap 9 BUN 27 H Creatinine 1.01 Estimated GFR 70 L POC Glucose 126 H Random Glucose 105 Calcium 8.4 L Phosphorus 3.2 Magnesium 2.6 H Total Bilirubin 0.6 AST 16 ALT 34 Alkaline Phosphatase 47 Total Protein 5.4 L Albumin 2.8 L 07/26/18 06:25 WBC RBC Hgb Hct MCV MCH MCHC RDW Plt Count MPV Neut % (Auto) Lymph % (Auto) Lagrange % (Auto) Eos % (Auto) Baso % (Auto) Neut # (Auto) Lymph # (Auto) Lagrange # (Auto) Eos # (Auto) Baso # (Auto) WBC Differential Differential Comment Sodium Potassium Chloride Carbon Dioxide Anion Gap BUN Creatinine Estimated GFR POC Glucose 105 Random Glucose Calcium Phosphorus Magnesium Total Bilirubin AST ALT Alkaline Phosphatase Total Protein Albumin Imaging: Chest CTA 07/23/18 00:00 CONCLUSION: 1. COPD with mild subsegmental airspace disease in the lingula. 2. No evidence of pulmonary embolism. 3. Mild background groundglass opacity with small bilateral effusions which may represent mild congestive heart failure. 4. Calcified coronary arteries. Venous Doppler Study 07/23/18 00:00 CONCLUSION: The study is negative for lower extremity deep venous thrombosis. Head CT 07/25/18 00:00 CONCLUSION: 1. Bilateral cystic hygromas/chronic subdural hematomas that are right greater than left and with associated 6 mm of leftward midline shift. 2. No acute blood or evidence of an acute ischemic event. 3. Atrophy. . Chest X-Ray 07/25/18 06:00 CONCLUSION: Bibasilar consolidation without significant change. Head MRI 07/25/18 07:45 CONCLUSION: 1. Redemonstration of bilateral cystic hygromas, slightly asymmetric (right greater than left) and associated 5 mm right to left midline shift. 2. Otherwise, no acute abnormality. Specifically, no acute hemorrhage, hydrocephalus or abnormal enhancement. Objective Remarks: GENERAL: Patient is 87 yo lying in bed in NAD SKIN: Warm and dry. HEAD: Normocephalic. EYES: No scleral icterus. No injection or drainage. NECK: Supple, trachea midline. No JVD or lymphadenopathy. CARDIOVASCULAR: Regular rate and rhythm without murmurs, gallops, or rubs. RESPIRATORY: Breath sounds equal bilaterally. No accessory muscle use. GASTROINTESTINAL: Abdomen soft, non-tender, nondistended. MUSCULOSKELETAL: No cyanosis, or edema. Neuro: Awake and alert Assessment and Plan - Assessment and Plan Plan: Neuro/Psych: Anxiety disorder NOS Glaucoma Monitor neuro status avoid any sedatives Acetaminophen 650 by tube every 6 hours as needed fever Continue Brimonidine 0.2% 1 drop twice daily for glaucoma CT brain: Bilateral cystic hygromas/chronic subdural hematomas that are right greater than left and with associated 6 mm of leftward midline shift. No acute blood or evidence of an acute ischemic event. Atrophy. MRI brain07/25: Redemonstration of bilateral cystic hygromas, slightly asymmetric (right greater than left) and associated 5 mm right to left midline shift. Otherwise, no acute abnormality. Specifically, no acute hemorrhage, hydrocephalus or abnormal enhancement NSG is following- Discussed with Dr. Dhaliwal CV: NSTEMI with elevated troponin 0 0.36 Left bundle branch block History of myocardial infarction Essential hypertension Followed by cardiology/Dr. Stephens. 2D echocardiogram is pending Troponin currently in a downward trend. On Diltiazem 60 mg every 6 hours, monitor HR and BP keep MAP>65mmHg Apixaban 5 mg twice daily on hold. Nuclear medicine stress test 06/10 revealed old anteroseptal infarct. EF 42%. No reversibility. Resp: Acute respiratory failure History of severe emphysema/COPD Continue with oxygen keep sats >92% Continue Symbicort 160/4.52 puffs twice daily Albuterol/ipratropium aerosols every 4 hours with albuterol aerosols every 2 hours as needed for dyspnea Methylprednisolone succinate 40 mg IV BID, IS Pulmonary consultation/Dr. Stovall is his automatic pinsetter adjuster CXR: Bibasilar consolidation without significant change GI: History of Olivares's esophagus History of rectal/anal stenosis History of colonic diverticulosis History Degenerative disc disease of internal and external hemorrhoids Lansoprazole for GI prophylaxis Docusate sodium/senna 1 tablet twice daily for bowel regimen On PO mechanical soft diet : BPH Continue to hold doxazosin 4 mg daily. Condom catheter. Cline catheter if indicated indwelling Monitor renal function, I/O's, electrolytes replacement per protocol. Will need K replacement today On Lasix 40mg IV daily Endo: History of thyrotoxicosis SSI with aspart insulin every 6 hours/medium protocol to maintain euglycemia while on steroids Continue methimazole 5 mg daily TSH: 0.35, FT4: 1.12, FT3: 1.31 Heme: History of prostate cancer Leukopenia Monitor CBC daily. Follow trends. ID: 07/23 -blood cultures 2 -NGTD Influenza a/B, Legionella and pneumococcal urine antigens no growth Check sputum cx Continue piperacillin/tazobactam and azithromycin MSK: Chronic shoulder pain Osteoarthritic PT/OT evaluate and treat Access -Utilize peripheral IV. Right IJ CVP placed 07/24 Prophylaxis -GI -lansoprazole DVT- -SCD/ for DVT prophylaxis. Eliquis placed on hold Level 2
[2018-07-26] MEDS: Finasteride 5 MG Tablet PO SCH (08:26)
[2018-07-26] MEDS: Senna/Docusate Sodium 8.6/50 MG Tablet PO SCH ×2 (08:26→20:55)
[2018-07-26] MEDS: methIMAzole 5 MG Tablet PO SCH (08:26)
[2018-07-26] MEDS: dilTIAZem 60 MG Tablet PO SCH ×4 (08:26→20:55)
[2018-07-26] MEDS: Gabapentin 100 MG Capsule PO SCH ×3 (08:27→18:10)
[2018-07-26] MEDS: MethylPREDNISolone Sod Succinate Inj 40 MG/ML Vial IV.PUSH SCH ×2 (08:27→20:55)
[2018-07-26] MEDS: Brimonidine 0.2% Opth Drops 5 ML Bottle EACH EYE SCH ×2 (08:28→20:56)
[2018-07-26] MEDS: Hypromellose 0.3% Opth Gel 10 GM Bottle EACH EYE SCH ×2 (08:28→20:56)
[2018-07-26] MEDS: Budesonide-Formoterol 160/4.5 MCG 6 GM Inhaler INH SCH ×2 (08:28→20:56)
[2018-07-26] MEDS: Chlorhexidine 0.12% Oral Kit 15 ML UDC OROPHARYNG SCH ×2 (08:28→20:15)
--- NOTE | 2018-07-26 14:57 | ECHRPT ---
Indication: SOB CONCLUSIONS Overall technically difficult, no sternal views Mildly dilated left ventricle. The left ventricular systolic function is severely reduced with an estimated ejection fraction less than 20%. Mild mitral valve regurgitation. There is trace tricuspid valve regurgitation. BP: / HR: Rhythm: Sinus MEASUREMENTS (Male / Female) Normal Values Technical Quality:Very technically difficult study DOPPLER AV Peak Velocity 127.0 cm/s AV Peak Gradient 6.5 mmHg AV Mean Gradient 3.0 mmHg AV Velocity Time Integral 17.8 cm LVOT Peak Velocity 87.2 cm/s LVOT Peak Gradient 3.0 mmHg LVOT Velocity Time Integral 13.6 cm Mitral E Point Velocity 124.0 cm/s Mitral A Point Velocity 87.7 cm/s Mitral E to A Ratio 1.4 LV E' Lateral Velocity 6.3 cm/s Mitral E to LV E' Lateral Ratio 19.6 LV E' Septal Velocity 4.6 cm/s Mitral E to LV E' Septal Ratio 27.1 TR Peak Velocity 224.0 cm/s TR Peak Gradient 20.1 mmHg Right Atrial Pressure 10.0 mmHg Pulmonary Artery Systolic Pressu 30.1 mmHg Right Ventricular Systolic Press 30.1 mmHg PV Peak Velocity 107.0 cm/s PV Peak Gradient 4.6 mmHg FINDINGS LEFT VENTRICLE Mildly dilated left ventricle. The left ventricular systolic function is severely reduced with an estimated ejection fraction less than 20%. RIGHT VENTRICLE Grossly normal LEFT ATRIUM The left atrial size is mildly dilated. RIGHT ATRIUM The right atrial size is mildly dilated. ATRIAL SEPTUM No atrial level shunt is demonstrated by color flow Doppler interrogation. AORTA The aortic root and proximal ascending aorta are not well visualized. MITRAL VALVE Grossly normal Mild mitral valve regurgitation. No mitral valve stenosis. AORTIC VALVE Grossly normal No aortic valve regurgitation. No aortic valve stenosis. TRICUSPID VALVE Grossly normal There is trace tricuspid valve regurgitation. PULMONARY VALVE The pulmonary valve is not well visualized. VESSELS The inferior vena cava is normal in size. PERICARDIUM No pericardial effusion. Wayne Devlin DO (Electronically Signed) Final Date:26 July 2018 14:56
[2018-07-26] MEDS: Azithromycin 250 MG Tablet PO SCH (15:26)
--- NOTE | 2018-07-26 18:37 | P.PNPL ---
Subjective Interval history: 87 YOWM with Severe COPD, RF, s/p extubation SOB with any activity Required CPAP briefly Anxiety makes his breathing even worse Echo EF 20-25% Physical Exam Vital signs: Vital Signs 07/25/18 19:00 07/25/18 19:26 07/25/18 20:00 Temperature 97.8 F Pulse Rate 80 78 78 Respiratory Rate 17 16 12 Blood Pressure 122/57 L 119/63 Pulse Oximetry 90 L 97 98 07/25/18 21:00 07/25/18 22:00 07/25/18 23:00 Temperature Pulse Rate 78 77 76 Respiratory Rate 12 11 L 13 Blood Pressure 106/63 105/58 L 108/60 Pulse Oximetry 96 95 93 L 07/25/18 23:35 07/26/18 00:00 07/26/18 01:00 Temperature 98.1 F Pulse Rate 77 76 53 L Respiratory Rate 16 23 15 Blood Pressure 110/64 Pulse Oximetry 97 92 L 07/26/18 01:01 07/26/18 02:00 07/26/18 03:00 Temperature Pulse Rate 73 66 42 L Respiratory Rate 17 16 14 Blood Pressure 105/54 L 116/57 L 111/57 L Pulse Oximetry 91 L 89 L 94 L 07/26/18 03:42 07/26/18 04:00 07/26/18 05:00 Temperature 98 F Pulse Rate 71 49 L 73 Respiratory Rate 16 15 16 Blood Pressure 116/57 L 116/60 Pulse Oximetry 96 96 07/26/18 06:00 07/26/18 07:00 07/26/18 07:28 Temperature Pulse Rate 75 75 89 Respiratory Rate 16 18 20 Blood Pressure 123/63 128/75 Pulse Oximetry 93 L 95 95 07/26/18 08:00 07/26/18 09:00 07/26/18 09:30 Temperature 98.0 F Pulse Rate 78 85 107 H Respiratory Rate 21 27 H 18 Blood Pressure 141/71 H 142/93 H Pulse Oximetry 95 83 L 99 07/26/18 09:35 07/26/18 10:00 07/26/18 11:00 Temperature Pulse Rate 79 78 Respiratory Rate 16 31 H Blood Pressure 111/62 118/64 Pulse Oximetry 98 94 L 93 L 07/26/18 12:00 07/26/18 12:26 07/26/18 13:00 Temperature 98.0 F Pulse Rate 77 77 77 Respiratory Rate 18 24 17 Blood Pressure 125/70 121/64 Pulse Oximetry 93 L 95 07/26/18 14:00 07/26/18 15:00 07/26/18 15:03 Temperature Pulse Rate 77 77 77 Respiratory Rate 34 H 14 20 Blood Pressure 129/75 125/67 Pulse Oximetry 93 L 98 07/26/18 16:00 07/26/18 17:00 07/26/18 18:00 Temperature 98.0 F Pulse Rate 76 77 77 Respiratory Rate 20 16 26 H Blood Pressure 112/56 L 124/66 125/68 Pulse Oximetry 94 L 97 94 L Intake & Output 07/25/18 07/26/18 07/26/18 18:59 06:59 18:59 Intake Total 1060 / 1060 400 / 400 830 / 830 Output Total 1400 / 1400 450 / 450 2500 / 2500 Balance -340 / -340 -50 / -50 -1670 / -1670 Weight 74.4 kg Intake: IV 760 / 760 200 / 200 200 / 200 Versed Inj 50 mg In 50 ml @ 2 10 / 10 MG/HR 2 mls/hr IV.CONT TITRATE PRN Rx#:[id number] Levophed Inj 4 MG In NS Inj 246 200 / 200 ML @ 2 MCG/MIN 7.5 mls/hr IV. SIG TITRATE PRN Rx#:[id number] Zosyn 4.5 GM Premix 4.5 gm In 200 / 200 200 / 200 200 / 200 100 ml @ 200 mls/hr IV.SIG Q6H IRENA Rx#:[id number] fentaNYL 10 mcg/mL Premix Drip 350 / 350 2,500 mcg In 250 ml @ 50 MCG/HR 5 mls/hr IV.SIG TITRATE PRN Rx #:[id number] Oral 240 / 240 200 / 200 630 / 630 Water Bolus Amount 60 / 60 Output: Urine Amount (Catheter) 1400 / 1400 450 / 450 2500 / 2500 Indwelling Urethral Catheter 1400 / 1400 450 / 450 2500 / 2500 Other: Date of Last Bowel Movement 07/26/18 # Bowel Movements 1 GENERAL: Elderly Wm, SOB SKIN: Warm and dry. HEAD: Normocephalic. EYES: No scleral icterus. No injection or drainage. NECK: Supple, trachea midline. No JVD or lymphadenopathy. CARDIOVASCULAR: Regular rate and rhythm without murmurs, gallops, or rubs. RESPIRATORY: Breath sounds equal bilaterally. No accessory muscle use. Decreased Chest excursion. GASTROINTESTINAL: Abdomen soft, non-tender, nondistended. MUSCULOSKELETAL: No cyanosis, or edema. BACK: Nontender without obvious deformity. No CVA tenderness. - Urinary Catheter Management Condom Cath placed during this visit: no Urethral indwelling: No Indwelling Urethral Catheter Cath placed during this visit: yes Reason for continuing: Acute urinary retention Insertion date: 07/24/18 Assessment and Plan - Plan IMPRESSION: 1. Respiratory failure, status post extubation. 2. Severe chronic obstructive pulmonary disease. 3. Increased troponin. 4. Subdural hematoma. 5. CMP 6. Anxiety disorder PLAN: Supplement 02 CPAP PRN Buspar 5 mg tid for anxiety IV Solumedrol Cont Abx
[2018-07-27] MEDS: Insulin NovoLOG Aspart Correctional Sugar Inj SQ SCH ×4 (01:04→17:37)
[2018-07-27] MEDS: Oral Hygiene Kit OROPHARYNG SCH ×4 (01:05→16:28)
[2018-07-27] MEDS: Piperacil/Tazo 4.5 GM Premix 4.5 GM/100 ML BAG IV.SIG SCH ×4 (03:09→21:51)
[2018-07-27 05:08] LABS: Baso % (Auto) 0.1 % (0.0-2.0); Hemoglobin 13.9 gm/dL (13.0-17.0); Lymph # (Auto) 0.2 th/mm3 (1.0-4.8); Lymph % (Auto) 3.2 % (9.0-44.0); Mean Corpuscular HGB Conc 33.9 % (32.0-36.0); Mean Corpuscular Hemoglobin 33.8 pg (27.0-34.0); Mean Corpuscular Volume 99.8 fL (80.0-100.0); Mean Platelet Volume 8.2 fL (7.0-11.0); Mono # (Auto) 0.5 th/mm3 (0.0-0.9); Mono % (Auto) 6.7 % (0.0-8.0); Neut # (Auto) 6.9 th/mm3 (1.8-7.7); Platelet Count 172 th/mm3 (150-450); Red Blood Count 4.11 mil/mm3 (4.50-5.90); Red Cell Distribution Width 12.8 % (11.6-17.2); White Blood Count 7.6 th/mm3 (4.0-11.0)
[2018-07-27 05:24] LABS: Anion Gap 8 meq/L (5-15); Aspartate Aminotransferase 18 U/L (15-37); Blood Urea Nitrogen 29 mg/dL (7-18); Calcium 8.4 mg/dL (8.5-10.1); Carbon Dioxide 36.5 meq/L (21.0-32.0); Chloride 99 meq/L (98-107); Glomerular Filtration Rate 74 mL/min (>89); Glucose,Random 113 mg/dL (74-106); Magnesium 2.3 mg/dL (1.5-2.5); Potassium 3.2 meq/L (3.5-5.1); Sodium 143 meq/L (136-145)
[2018-07-27 05:25] LABS: Alanine Aminotransferase 36 U/L (12-78); Phosphorus 2.5 mg/dL (2.5-4.9)
[2018-07-27 05:28] LABS: Alkaline Phosphatase 50 U/L (45-117); Total Protein 5.5 g/dL (6.4-8.2)
[2018-07-27] MEDS: Potassium Chlor 40 mEq Premix 40 MEQ/100 ML PIGGYBACK IV.SIG PRN ×3 (06:33→21:50)
[2018-07-27] MEDS: Finasteride 5 MG Tablet PO SCH (08:17)
[2018-07-27] MEDS: methIMAzole 5 MG Tablet PO SCH (08:17)
[2018-07-27] MEDS: Senna/Docusate Sodium 8.6/50 MG Tablet PO SCH ×2 (08:17→21:51)
[2018-07-27] MEDS: dilTIAZem 60 MG Tablet PO SCH ×4 (08:17→21:51)
[2018-07-27] MEDS: Gabapentin 100 MG Capsule PO SCH ×3 (08:18→17:34)
[2018-07-27] MEDS: MethylPREDNISolone Sod Succinate Inj 40 MG/ML Vial IV.PUSH SCH ×2 (08:18→21:51)
[2018-07-27] MEDS: Budesonide-Formoterol 160/4.5 MCG 6 GM Inhaler INH SCH ×2 (08:19→21:51)
[2018-07-27] MEDS: Brimonidine 0.2% Opth Drops 5 ML Bottle EACH EYE SCH ×2 (08:19→21:51)
[2018-07-27] MEDS: Chlorhexidine 0.12% Oral Kit 15 ML UDC OROPHARYNG SCH ×2 (08:20→21:51)
[2018-07-27] MEDS: Hypromellose 0.3% Opth Gel 10 GM Bottle EACH EYE SCH ×2 (08:20→21:51)
--- NOTE | 2018-07-27 09:22 | P.PNCC ---
Subjective Subjective Remarks/Hospital Course: This is an 87-year-old male. Full code. Admission 07/23/2018. Date of consultation 07/24/2018. Past medical history includes recent hospitalization 06/21-06/23 for COPD exacerbation for which he is 2 L nasal cannulae dependent as of 06/15, anxiety disorder, BPH, prostate cancer, essential hypertension, myocardial infarction, glaucoma, rectal/anal stenosis, diverticulosis, internal and external hemorrhoids, degenerative disease, emphysema seen by Dr. Stovall and known systolic heart failure ejection fraction around 40% followed by Dr. Andrade. Patient originally presented to [facility] via [facility] for sudden onset shortness of breath. The patient reports this morning when he got up to go to the restroom he suddenly became very dyspneic to the point where he could not get off the commode for about 45 minutes. His saturations are 74% but symptomatic include after receiving an albuterol/ipratropium aerosol treatment. His heart rate was reportedly in the high 100s and he was given IV diltiazem. Patient had a negative CT pulmonary comfort pulmonary embolism and lower extremity Dopplers for deep venous thrombosis. He is placed on a regimen of aggressive pulmonary toilet aerosolized medication therapy and IV methylprednisolone succinate. He remained in atrial fibrillation with rapid ventricular response the heart rate in the 100s. Troponin did bump from 0.36. Denies chest pain. Noted negative nuclear medicine scan 06/10 showing an old anteroseptal infarct. EF around 40%. No reversibility. Most recent pulmonary functions revealed F vital capacity 57% and FEV1 at 37%. Today, patient was transferred to ICU emergently for worsening respiratory failure. Discussed with patient electively intubated due to impending respiratory failure 07/25 Patient is intubated on Fentanyl infusion for sedation. Off Levophed. Afebrile. 07/26 Patient was extubated yesterday on 3L oxygen. Afebrile. 07/27 No events overnight remains on 3L oxygen. Objective Vital Signs / I&O: Vital Signs 07/26/18 09:30 07/26/18 09:35 07/26/18 10:00 Temperature Pulse Rate 107 H 79 Respiratory Rate 18 16 Blood Pressure 142/93 H 111/62 Pulse Oximetry 99 98 94 L 07/26/18 11:00 07/26/18 12:00 07/26/18 12:26 Temperature 98.0 F Pulse Rate 78 77 77 Respiratory Rate 31 H 18 24 Blood Pressure 118/64 125/70 Pulse Oximetry 93 L 93 L 07/26/18 13:00 07/26/18 14:00 07/26/18 15:00 Temperature Pulse Rate 77 77 77 Respiratory Rate 17 34 H 14 Blood Pressure 121/64 129/75 125/67 Pulse Oximetry 95 93 L 98 07/26/18 15:03 07/26/18 16:00 07/26/18 17:00 Temperature 98.0 F Pulse Rate 77 76 77 Respiratory Rate 20 20 16 Blood Pressure 112/56 L 124/66 Pulse Oximetry 94 L 97 07/26/18 18:00 07/26/18 20:00 07/26/18 20:05 Temperature 98.6 F Pulse Rate 77 78 78 Respiratory Rate 26 H 30 H 16 Blood Pressure 125/68 118/65 Pulse Oximetry 94 L 93 L 95 07/26/18 23:16 07/27/18 00:00 07/27/18 03:43 Temperature 98.4 F Pulse Rate 74 75 76 Respiratory Rate 16 18 16 Blood Pressure 118/61 Pulse Oximetry 97 07/27/18 04:00 Temperature 98.4 F Pulse Rate 76 Respiratory Rate 17 Blood Pressure 123/58 L Pulse Oximetry 99 Intake & Output 07/26/18 07/27/18 07/27/18 18:59 06:59 18:59 Intake Total 830 / 830 320 / 320 100 / 100 Output Total 2500 / 2500 500 / 500 Balance -1670 / -1670 -180 / -180 100 / 100 Weight 74.4 kg Intake: IV 200 / 200 200 / 200 100 / 100 Zosyn 4.5 GM Premix 4.5 gm In 200 / 200 200 / 200 100 ml @ 200 mls/hr IV.SIG Q6H IRENA Rx#:[id number] KCl 40 mEq Premix Inj 40 meq In 100 / 100 100 ml @ 25 mls/hr IV.SIG Q2H PRN Rx#:[id number] Oral 630 / 630 120 / 120 Output: Urine Amount (Catheter) 2500 / 2500 500 / 500 Indwelling Urethral Catheter 2500 / 2500 500 / 500 Other: Date of Last Bowel Movement 07/26/18 07/26/18 # Bowel Movements 1 Result Diagrams: 07/27/18 03:45 07/27/18 03:45 Other Results: Laboratory Results - last 12 hr 07/26/18 07/27/18 07/27/18 23:54 03:45 03:45 WBC 7.6 RBC 4.11 L Hgb 13.9 Hct 41.0 MCV 99.8 MCH 33.8 MCHC 33.9 RDW 12.8 Plt Count 172 MPV 8.2 Neut % (Auto) 90.0 H Lymph % (Auto) 3.2 L [place] % (Auto) 6.7 Eos % (Auto) 0.0 Baso % (Auto) 0.1 Neut # (Auto) 6.9 Lymph # (Auto) 0.2 L [place] # (Auto) 0.5 Eos # (Auto) 0.0 Baso # (Auto) 0.0 WBC Differential . Differential Comment Auto diff final Sodium 143 Potassium 3.2 L Chloride 99 Carbon Dioxide 36.5 H Anion Gap 8 BUN 29 H Creatinine 0.96 Estimated GFR 74 L POC Glucose 130 H Random Glucose 113 H Calcium 8.4 L Phosphorus 2.5 Magnesium 2.3 Total Bilirubin 0.8 AST 18 ALT 36 Alkaline Phosphatase 50 Total Protein 5.5 L Albumin 3.0 L Imaging: Chest CTA 07/23/18 00:00 CONCLUSION: 1. COPD with mild subsegmental airspace disease in the lingula. 2. No evidence of pulmonary embolism. 3. Mild background groundglass opacity with small bilateral effusions which may represent mild congestive heart failure. 4. Calcified coronary arteries. Venous Doppler Study 07/23/18 00:00 CONCLUSION: The study is negative for lower extremity deep venous thrombosis. Head CT 07/25/18 00:00 CONCLUSION: 1. Bilateral cystic hygromas/chronic subdural hematomas that are right greater than left and with associated 6 mm of leftward midline shift. 2. No acute blood or evidence of an acute ischemic event. 3. Atrophy. . Chest X-Ray 07/25/18 06:00 CONCLUSION: Bibasilar consolidation without significant change. Head MRI 07/25/18 07:45 CONCLUSION: 1. Redemonstration of bilateral cystic hygromas, slightly asymmetric (right greater than left) and associated 5 mm right to left midline shift. 2. Otherwise, no acute abnormality. Specifically, no acute hemorrhage, hydrocephalus or abnormal enhancement. Objective Remarks: GENERAL: Patient is 87 yo lying in bed in NAD SKIN: Warm and dry. HEAD: Normocephalic. EYES: No scleral icterus. No injection or drainage. NECK: Supple, trachea midline. No JVD or lymphadenopathy. CARDIOVASCULAR: Regular rate and rhythm without murmurs, gallops, or rubs. RESPIRATORY: Breath sounds equal bilaterally. No accessory muscle use. GASTROINTESTINAL: Abdomen soft, non-tender, nondistended. MUSCULOSKELETAL: No cyanosis, or edema. Neuro: Awake and alert Assessment and Plan - Assessment and Plan Plan: Neuro/Psych: Anxiety disorder NOS Glaucoma Monitor neuro status avoid any sedatives Acetaminophen 650 by tube every 6 hours as needed fever Continue Brimonidine 0.2% 1 drop twice daily for glaucoma CT brain: Bilateral cystic hygromas/chronic subdural hematomas that are right greater than left and with associated 6 mm of leftward midline shift. No acute blood or evidence of an acute ischemic event. Atrophy. MRI brain07/25: Redemonstration of bilateral cystic hygromas, slightly asymmetric (right greater than left) and associated 5 mm right to left midline shift. Otherwise, no acute abnormality. Specifically, no acute hemorrhage, hydrocephalus or abnormal enhancement NSG is following- Discussed with Dr. Dhaliwal CV: NSTEMI with elevated troponin 0 0.36 Left bundle branch block History of myocardial infarction Essential hypertension Cards is following /Dr. Stephens. Echo showed EF < 20% Troponin currently in a downward trend. On Diltiazem 60 mg every 6 hours, monitor HR and BP keep MAP>65mmHg Apixaban 5 mg twice daily on hold. Nuclear medicine stress test 06/10 revealed old anteroseptal infarct. EF 42%. No reversibility. Resp: Acute respiratory failure History of severe emphysema/COPD Continue with oxygen keep sats >92% Continue Symbicort 160/4.52 puffs twice daily Albuterol/ipratropium aerosols every 4 hours with albuterol aerosols every 2 hours as needed for dyspnea Methylprednisolone succinate 40 mg IV BID, IS Pulmonary consultation/Dr. Stovall is his assistant auditor Check CXR today GI: History of Olivares's esophagus History of rectal/anal stenosis History of colonic diverticulosis History Degenerative disc disease of internal and external hemorrhoids Lansoprazole for GI prophylaxis Docusate sodium/senna 1 tablet twice daily for bowel regimen On PO mechanical soft diet : BPH Continue to hold doxazosin 4 mg daily. Condom catheter. Cline catheter if indicated indwelling Monitor renal function, I/O's, electrolytes replacement per protocol. Will need K replacement today On Lasix 40mg IV daily Endo: History of thyrotoxicosis SSI with aspart insulin every 6 hours/medium protocol to maintain euglycemia while on steroids Continue methimazole 5 mg daily TSH: 0.35, FT4: 1.12, FT3: 1.31 Heme: History of prostate cancer Leukopenia Monitor CBC daily. Follow trends. ID: 07/23 -blood cultures 2 -NGTD Influenza a/B, Legionella and pneumococcal urine antigens no growth Continue piperacillin/tazobactam and azithromycin MSK: Chronic shoulder pain Osteoarthritic PT/OT evaluate and treat Access -Utilize peripheral IV. Right IJ CVP placed 07/24, d/c central line Prophylaxis -GI -lansoprazole DVT- -SCD/ for DVT prophylaxis. Eliquis placed on hold Level 2
--- NOTE | 2018-07-27 10:34 | XR ---
EXAM DATE: 07/27/2018 10:27 AM EDT AGE/SEX: 87 years / Male INDICATIONS: Short of breath. CLINICAL DATA: This is the patient's subsequent encounter. Patient reports that signs and symptoms h ave been present for 4 - 6 days and indicates a pain score of 0/10. MEDICAL/SURGICAL HISTORY: . Chronic obstructive pulmonary disease. Carcinoma, prostatic. Hypert ension. [place], DVT, PE Appendectomy. Cholecystectomy. Prostectomy . COMPARISON: [facility], CHEST 1V SINGLE AP, 07/25/2018. . FINDINGS: Stable right IJ central line with tip in the very proximal SVC. Interval extubation with removal of N GT. Persistent diffuse interstitial prominence with bilateral lower lung zone airspace disease, right greater than left, with questionable trace associated pleural fluid. Cardiomediastinal contours are stable. Remainder of the exam is unchanged. CONCLUSION: 1. No significant interval change following extubation and removal of NGT. 2. Stable bilateral lower lung zone airspace disease, right greater than left, with questionable tra ce associated pleural fluid. Electronically signed by: Ermias Avery MD 07/27/2018 10:33 AM EDT
[2018-07-27] MEDS: Azithromycin 250 MG Tablet PO SCH (14:50)
--- NOTE | 2018-07-27 18:47 | P.PNPL ---
Subjective Interval history: 87 YOWM with Severe COPD, RF, s/p extubation SOB with any activity Required CPAP briefly Anxiety makes his breathing even worse Echo EF 20-25% Feels weak Appetite poor Physical Exam Vital signs: Vital Signs 07/26/18 20:00 07/26/18 20:05 07/26/18 23:16 Temperature 98.6 F Pulse Rate 78 78 74 Respiratory Rate 30 H 16 16 Blood Pressure 118/65 Pulse Oximetry 93 L 95 07/27/18 00:00 07/27/18 03:43 07/27/18 04:00 Temperature 98.4 F 98.4 F Pulse Rate 75 76 76 Respiratory Rate 18 16 17 Blood Pressure 118/61 123/58 L Pulse Oximetry 97 99 07/27/18 08:00 07/27/18 09:17 07/27/18 09:18 Temperature 97.7 F Pulse Rate 77 78 Respiratory Rate 22 17 Blood Pressure 129/69 Pulse Oximetry 95 98 07/27/18 12:00 07/27/18 13:03 07/27/18 16:00 Temperature 97.9 F 98.0 F Pulse Rate 78 79 79 Respiratory Rate 30 H 20 26 H Blood Pressure 129/69 118/64 Pulse Oximetry 94 L 97 07/27/18 16:35 Temperature Pulse Rate 78 Respiratory Rate 16 Blood Pressure Pulse Oximetry Intake & Output 07/26/18 07/27/18 07/27/18 18:59 06:59 18:59 Intake Total 830 / 830 320 / 320 900 / 900 Output Total 2500 / 2500 500 / 500 2550 / 2550 Balance -1670 / -1670 -180 / -180 -1650 / -1650 Weight 74.4 kg Intake: IV 200 / 200 200 / 200 300 / 300 Zosyn 4.5 GM Premix 4.5 gm In 200 / 200 200 / 200 200 / 200 100 ml @ 200 mls/hr IV.SIG Q6H IRENA Rx#:[id number] KCl 40 mEq Premix Inj 40 meq In 100 / 100 100 ml @ 25 mls/hr IV.SIG Q2H PRN Rx#:[id number] Oral 630 / 630 120 / 120 600 / 600 Output: Urine Amount (Catheter) 2500 / 2500 500 / 500 2550 / 2550 Indwelling Urethral Catheter 2500 / 2500 500 / 500 2550 / 2550 Other: Date of Last Bowel Movement 07/26/18 07/26/18 07/27/18 # Bowel Movements 1 GENERAL: Frail elderly WM, Mild sob SKIN: Warm and dry. HEAD: Normocephalic. EYES: No scleral icterus. No injection or drainage. NECK: Supple, trachea midline. No JVD or lymphadenopathy. CARDIOVASCULAR: Regular rate and rhythm without murmurs, gallops, or rubs. RESPIRATORY: Breath sounds equal bilaterally. No accessory muscle use. GASTROINTESTINAL: Abdomen soft, non-tender, nondistended. MUSCULOSKELETAL: No cyanosis, or edema. BACK: Nontender without obvious deformity. No CVA tenderness. - Urinary Catheter Management Condom Cath placed during this visit: no Urethral indwelling: No Indwelling Urethral Catheter Cath placed during this visit: yes Reason for continuing: Acute urinary retention Insertion date: 07/24/18 Assessment and Plan - Plan IMPRESSION: 1. Respiratory failure, status post extubation. 2. Severe chronic obstructive pulmonary disease. 3. Increased troponin. 4. Subdural hematoma. 5. CMP 6. Anxiety disorder PLAN: Supplement 02 CPAP PRN Buspar 5 mg tid for anxiety IV Solumedrol Cont Abx Encourage po
[2018-07-27] MEDS: guaiFENesin 600 MG ER Tablet PO SCH (21:51)
[2018-07-28] MEDS: Insulin NovoLOG Aspart Correctional Sugar Inj SQ SCH ×5 (00:34→23:47)
[2018-07-28] MEDS: Oral Hygiene Kit OROPHARYNG SCH ×5 (00:34→23:48)
[2018-07-28] MEDS: Potassium Chlor 40 mEq Premix 40 MEQ/100 ML PIGGYBACK IV.SIG PRN (01:48)
[2018-07-28] MEDS: Piperacil/Tazo 4.5 GM Premix 4.5 GM/100 ML BAG IV.SIG SCH ×4 (04:58→20:09)
[2018-07-28] MEDS: Senna/Docusate Sodium 8.6/50 MG Tablet PO SCH ×2 (08:46→20:11)
[2018-07-28] MEDS: Hypromellose 0.3% Opth Gel 10 GM Bottle EACH EYE SCH ×2 (08:46→20:09)
[2018-07-28] MEDS: methIMAzole 5 MG Tablet PO SCH (08:56)
[2018-07-28] MEDS: guaiFENesin 600 MG ER Tablet PO SCH ×2 (08:56→20:09)
[2018-07-28] MEDS: Gabapentin 100 MG Capsule PO SCH ×3 (08:56→17:29)
[2018-07-28] MEDS: Finasteride 5 MG Tablet PO SCH (08:56)
[2018-07-28] MEDS: dilTIAZem 60 MG Tablet PO SCH ×4 (08:56→20:09)
[2018-07-28] MEDS: Brimonidine 0.2% Opth Drops 5 ML Bottle EACH EYE SCH ×2 (08:59→20:09)
[2018-07-28] MEDS: Budesonide-Formoterol 160/4.5 MCG 6 GM Inhaler INH SCH ×2 (09:00→20:12)
[2018-07-28] MEDS: MethylPREDNISolone Sod Succinate Inj 40 MG/ML Vial IV.PUSH SCH ×2 (09:00→20:09)
[2018-07-28] MEDS: Chlorhexidine 0.12% Oral Kit 15 ML UDC OROPHARYNG SCH ×2 (09:43→20:11)
[2018-07-28 10:06] LABS: Hematocrit 43.4 % (39.0-51.0); Hemoglobin 14.5 gm/dL (13.0-17.0); Lymph # (Auto) 0.3 th/mm3 (1.0-4.8); Lymph % (Auto) 2.8 % (9.0-44.0); Mean Corpuscular HGB Conc 33.5 % (32.0-36.0); Mean Corpuscular Hemoglobin 33.5 pg (27.0-34.0); Mean Corpuscular Volume 100.2 fL (80.0-100.0); Mean Platelet Volume 8.4 fL (7.0-11.0); Mono # (Auto) 0.7 th/mm3 (0.0-0.9); Mono % (Auto) 7.3 % (0.0-8.0); Neut # (Auto) 9.2 th/mm3 (1.8-7.7); Neut % (Auto) 89.9 % (16.0-70.0); Platelet Count 193 th/mm3 (150-450); Red Blood Count 4.33 mil/mm3 (4.50-5.90); White Blood Count 10.3 th/mm3 (4.0-11.0)
[2018-07-28 10:30] LABS: Anion Gap 6 meq/L (5-15); Aspartate Aminotransferase 18 U/L (15-37); Blood Urea Nitrogen 32 mg/dL (7-18); Carbon Dioxide 37.9 meq/L (21.0-32.0); Chloride 101 meq/L (98-107); Glomerular Filtration Rate 78 mL/min (>89); Glucose,Random 122 mg/dL (74-106); Magnesium 2.6 mg/dL (1.5-2.5); Potassium 3.9 meq/L (3.5-5.1); Sodium 145 meq/L (136-145)
[2018-07-28 10:31] LABS: Alanine Aminotransferase 40 U/L (12-78)
[2018-07-28 10:34] LABS: Alkaline Phosphatase 48 U/L (45-117); Phosphorus 2.3 mg/dL (2.5-4.9); Total Protein 5.6 g/dL (6.4-8.2)
[2018-07-28] MEDS ORDERED: ALPRAZolam 0.5 MG Tablet PO ONE (12:00)
--- NOTE | 2018-07-28 14:00 | P.CONPAL ---
Consult Service: Palliative Care Requesting Physician: Coleman Max Reason for Consult: a. To assist with evaluation and management of symptoms including: Dyspnea, anxiety b. To assist medical decision maker(s) with: better understanding of current medical conditions; weighing benefits/burdens of medical treatment options; making medical treatment decisions. Primary Care Provider: No Primary Care Physician History of Present Illness History of Present Illness: This is a very pleasant 87-year-old male with a past medical history of anxiety, COPD, emphysema, prostate cancer, CAD/[place] who presented to the emergency room via ambulance 07/23 plaintiff shortness of breath. He is chronically on 2 L of nasal cannula oxygen and his saturation was in the 70s on arrival. They increased that to 4 L and gave him a nebulizer treatment. On admission his heart rate was elevated and he received Cardizem IV in the ambulance. He was visibly anxious secondary to the dyspnea. He was also recently admitted to the hospital 06/21-06/23 for COPD exacerbation. He chronically follows with Dr. Stovall for pulmonology and Dr. Andrade for cardiology. His previous ejection fraction by echocardiogram was approximately 40%. Clinical findings on admission: * WBC 6.3, hemoglobin 14.4, hematocrit 43.1, platelets 166, PT 11.6, INR 1.1, APTT 25.3, sodium 141, potassium 4.1, BUN 17, creatinine 0.91, troponin I 0.29, lactic acid 1.5, B natruretic peptide 200. * Chest x-ray showed bibasilar airspace opacities, new since prior studies differential including pulmonary edema. * EKG showed atrial flutter, new onset with ST elevation and left bundle branch block, essentially unchanged from prior EKG * CTA showed COPD with mild subsegmental airspace disease in the lingula, no evidence of pulmonary embolism, mild background groundglass opacity with small bilateral effusions possibly representing mild congestive heart failure. * Right venous Doppler was negative for DVT. On 07/24 he developed hypoxia with saturations of 74%, symptomatic despite DuoNeb treatment. He received IV diltiazem secondary to tachycardia and was subsequently intubated. Left IJ central line was placed and patient had CT of the head without contrast showing bilateral cystic hygromas/chronic subdural hematomas that are right greater than left and associated with 6 mm of leftward midline shift. No acute blood or evidence of an acute ischemic event was seen. Neurosurgical consultation was requested and they recommended neuro checks every hour with MRI of the brain, which showed redemonstration of bilateral cystic hygromas, slightly asymmetric, right greater than left, and associated 5 mm right to left midline shift with no other acute abnormality. After stabilization, he was extubated on 07/25. He is seen today, still on nasal cannula, visibly short of breath with pursed lip breathing and difficulty with conversation. He has to stop mid sentence and catch his breath frequently. He complains of significant anxiety with shortness of breath. He states he feels as though he cannot catch his breath. The anxiety causes him to be unable to rest or sleep due to the discomfort. He states the severity is moderately severe, worse than his baseline at home. His niece Tanika Fermin is at bedside and assists with conversation. 2D echocardiogram done 07/26 shows severely reduced ejection fraction of less than 20% with mild mitral and trace tricuspid valve regurgitation. Pulmonary artery systolic pressure is reported at 30.1 mmHg. . Function/Cognitive Trajectory: He lives independently but is beginning to require more assistance, which his niece assists him with. He also has a caregiver [facility] [employer] who provides him assistance approximately 3-4 days a week with personal care, meals and housekeeping. He states he can do less, secondary to the shortness of breath, and is generally sedentary now. His niece is beginning to question whether he can continue to live alone, even with the assistance of the caregiver. . Review of Systems Constitutional: Reports fatigue Cardiovascular: Reports fast heart rate Respiratory: Reports shortness of breath Neurologic: Reports abnormal hearing Psychiatric: Reports anxiety [facility] History History Provided By: Patient - Medical History Medical History: Medical History (Last Reviewed 07/29/18 @ 08:36 by Felecia Matos, BRICKLAYER SEWER) Emphysema of lung Anxiety BPH (benign prostatic hyperplasia) Olivares's esophagus COPD (chronic obstructive pulmonary disease) Degeneration of intervertebral disc Diverticular disease of colon Glaucoma Hemorrhoids History of prostate cancer Myocardial infarct, old Osteoarthritis Polyp of colon Sensorineural hearing loss (SNHL) of both ears Shoulder pain Stenosis of rectum and anus Thyrotoxicosis with or without goiter - Surgical History Surgical History: Surgical History (Last Reviewed 07/29/18 @ 08:31 by Heena Cheng) History of appendectomy Hx of cholecystectomy S/P TURP - Family History Family History: Family History (Last Reviewed 07/25/18 @ 21:06 by Serjio Dhaliwal MD) Father Heart disease Mother Colon cancer - Tobacco History Second Hand Smoke Exposure: No Smoking Status: Former smoker (Quit smoking 1989) Tobacco Type: Cigarettes - Alcohol History How Often Do You Have a Drink Containing Alcohol: Never - Substance Use History Substance History: No History of Abuse - Travel History Recent Travel in the [place] Within the Last 8 Weeks: No Recent Travel Out of the Country Within the Last 8 Weeks: No - Immunization History Tetanus Immunization: <5 Years Tetanus Immunization Year if Known: 2012 Hx Influenza Vaccine This Season: Yes Medications and Allergies Active Medications: Active Medications Acetaminophen (Tylenol Liq) 650 mg PO Q6H PRN PRN Reason: FEVER Al Hydroxide/Mg Hydroxide (Milk Of Magnesia Liq) 30 ml PO Q12H PRN PRN Reason: Mild Constipation Albuterol (Albuterol Neb (Prn)) 2.5 mg NEB Q2HR NEB PRN PRN Reason: DYSPNEA Apixaban (Eliquis) 5 mg PO BID [facility] Last Admin: 07/24/18 20:17 Dose: 5 mg Artificial Tears (Genteal Severe Dry Eye Relief 0.3% Opth Gel) 1 drops EACH EYE BID [facility] Last Admin: 07/28/18 08:46 Dose: Not Given Aspirin (Aspirin Chew) 162 mg PO DAILY [facility] Azithromycin (Zithromax) 500 mg PO Q24H [facility] Last Admin: 07/27/18 14:50 Dose: 500 mg Bisacodyl (Dulcolax Supp) 10 mg RECTAL DAILY PRN PRN Reason: SEVERE CONSITIPATION Brimonidine Tartrate (Alphagan 0.2% Opth Drops) 1 drops EACH EYE BID [facility] Last Admin: 07/28/18 08:59 Dose: 1 drops Budesonide/Formoterol Fumarate (Symbicort 160/4.5 Mcg Inh) 2 puff INH BID [facility] Last Admin: 07/28/18 09:00 Dose: 2 puff Buspirone HCl (Buspar) 5 mg PO TID [facility] Last Admin: 07/28/18 08:56 Dose: 5 mg Chlorhexidine Gluconate (Peridex 0.12% Oral Kit) 15 ml OROPHARYNG BID@0800, 1999 [facility] Last Admin: 07/28/18 09:43 Dose: Not Given Dextrose (D50w Vial) 50 ml IV.PUSH UNSCH PRN PRN Reason: PER HYPOGLYCEMIA PROTOCOL Diltiazem HCl (Cardizem) 60 mg PO QID [facility] Last Admin: 07/28/18 12:18 Dose: 60 mg Finasteride (Proscar) 5 mg PO DAILY [facility] Last Admin: 07/28/18 08:56 Dose: 5 mg Furosemide (Lasix Inj) 40 mg IV.PUSH DAILY [facility] Last Admin: 07/28/18 08:59 Dose: 40 mg Gabapentin (Neurontin) 100 mg PO TID [facility] Last Admin: 07/28/18 12:18 Dose: 100 mg Glucagon (Glucagon Inj) 1 mg OTHER UNSCH PRN PRN Reason: for Hypoglycemia Protocol Guaifenesin (Mucinex Er) 600 mg PO BID [facility] Last Admin: 07/28/18 08:56 Dose: 600 mg Piperacillin/Tazobactam/Dextrose (Zosyn 4.5 Gm Premix) 4.5 gm in 100 mls @ 200 mls/hr IV.SIG Q6H [facility] Last Admin: 07/28/18 09:01 Dose: 100 mls/hr Propofol (Diprivan 1000 Mg/100 Ml Inj) 1,000 mg in 100 mls @ 2.271 mls/hr IV.CONT TITRATE PRN; Protocol PRN Reason: Per Protocol Last Titration: 07/24/18 16:01 Dose: 0 mcg/kg/min, 0 mls/hr Magnesium Sulfate Inj 4 gm/ (Sodium Chloride) 100 mls @ 50 mls/hr IV.SIG UNSCH PRN PRN Reason: For Magnesium 0.9 - 1.1 mg/dL Potassium Chloride (Kcl 40 Meq Premix Inj) 40 meq in 100 mls @ 25 mls/hr IV.SIG Q2H PRN PRN Reason: For Potassium 2.8 - 3.2 mEq/L Last Admin: 07/28/18 01:48 Dose: 25 mls/hr Potassium Chloride (Kcl 20 Meq Premix Inj) 20 meq in 100 mls @ 50 mls/hr IV.SIG Q2H PRN PRN Reason: For Potassium 3.3 - 3.5 mEq/L Potassium Chloride (Kcl 40 Meq Premix Inj) 40 meq in 100 mls @ 25 mls/hr IV.SIG UNSCH PRN PRN Reason: For Potassium 3.3 - 3.5 mEq/L Potassium Chloride (Kcl 20 Meq Premix Inj) 20 meq in 100 mls @ 50 mls/hr IV.SIG Q2H PRN PRN Reason: For Potassium 2.8 - 3.2 mEq/L Potassium Phosphate 30 mmol/ (Sodium Chloride) 260 mls @ 42 mls/hr IV.SIG UNSCH PRN PRN Reason: SEE LABEL COMMENTS Sodium Phosphate 30 mmol/ (Sodium Chloride) 260 mls @ 42 mls/hr IV.SIG UNSCH PRN PRN Reason: For Phosphorus < 2.5 mg/dL Magnesium Sulfate Inj 2 gm/ (Sodium Chloride) 100 mls @ 50 mls/hr IV.SIG UNSCH PRN PRN Reason: For Magnesium 1.2 - 1.6 mg/dL Diltiazem HCl 125 mg/ Sodium (Chloride) 125 mls @ 5 mls/hr IV.CONT TITRATE PRN ; Protocol PRN Reason: Per Protocol Insulin Aspart (Novolog Insulin Correctional Sugar Inj) 0 unit SQ Q6HR IRENA; Protocol Last Admin: 07/28/18 12:04 Dose: Not Given Lactulose (Lactulose Liq) 30 ml PO DAILY PRN PRN Reason: SEVERE CONSITIPATION Lansoprazole (Prevacid Solutab) 30 mg NG/OG DAILY [facility] Last Admin: 07/27/18 08:18 Dose: 30 mg Magnesium Oxide (Mag-Ox) 800 mg PO UNSCH PRN PRN Reason: For Magnesium 1.2 - 1.6 mg/dL Methimazole (Tapazole) 5 mg PO DAILY [facility] Last Admin: 07/28/18 08:56 Dose: 5 mg Methylprednisolone Sodium Succinate (Solumedrol Inj) 40 mg IV.PUSH Q12H [facility] Last Admin: 07/28/18 09:00 Dose: 40 mg Nitroglycerin (Nitrostat Sl) 0.4 mg SL Q5M PRN PRN Reason: CHEST PAIN Potassium Bicarb/Potassium Chloride (K-Lyte Cl Eff) 50 meq PO UNSCH PRN PRN Reason: For Potassium 3.3 - 3.5 mEq/L Last Admin: 07/26/18 08:27 Dose: 50 meq Potassium Phosphate (K-Phos Original) 2,000 mg PO Q4H PRN PRN Reason: Phosphorus Less Than 2.5 mg/dL Potassium Phosphate (K-Phos Original) 2,000 mg PO UNSCH PRN PRN Reason: SEE LABEL COMMENTS Senna/Docusate Sodium (Cheryl-Colace) 1 tab PO BID [facility] Last Admin: 07/28/18 08:46 Dose: Not Given Sennosides (Senokot) 17.2 mg PO Q12H PRN PRN Reason: Moderate Constipation Sodium Chloride (Ns Flush) 2 ml IV.FLUSH BID [facility] Last Admin: 07/28/18 09:00 Dose: 2 ml Sodium Chloride (Ns Flush) 2 ml IV.FLUSH PRN PRN PRN Reason: FLUSH AFTER USING IV ACCESS Sodium Chloride (Ns Flush) 0 ml IV.FLUSH DAILY [facility] Last Admin: 07/28/18 09:00 Dose: 6 ml Terbutaline Sulfate (Brethine Inj) 1 mg SQ UNSCH PRN PRN Reason: For Extravasation Allergies Allergy/AdvReac Type Severity Reaction Status Date / Time codeine Allergy Severe Irritabilit Verified 07/23/18 13:22 y/Anxiety diclofenac Allergy Severe Rash Verified 07/23/18 13:22 neomycin Allergy Intermediate Rash Verified 07/23/18 13:22 Home Medications Medication Instructions Recorded Confirmed Type aspirin [Aspirin Low Dose] 81 mg PO DAILY 06/21/18 07/23/18 History brimonidine 1 drp OPHTHALMIC (EYE) BID 06/21/18 07/23/18 History budesonide-formoterol 2 puff INHALATION BID 06/21/18 07/23/18 History doxazosin 4 mg PO DAILY 06/21/18 07/23/18 History finasteride 5 mg PO DAILY 06/21/18 07/23/18 History gabapentin 100 mg PO TID 06/21/18 07/23/18 History methimazole 5 mg PO DAILY 06/21/18 07/23/18 History tramadol 50 mg PO QID 06/21/18 07/23/18 History furosemide [Lasix] 20 mg PO DAILY 07/23/18 07/23/18 History potassium chloride 10 meq PO DAILY 07/23/18 07/23/18 History Advance Directives Living Will: Yes Healthcare Surrogate: Yes Health Care Surrogate Name and Number: Tanika Fermin Power of [place]: Unknown Physical Exam Vital Signs: Vital Signs - 24 hr 07/27/18 16:00 07/27/18 16:35 07/27/18 19:42 Temperature 98.0 F Pulse Rate 79 78 80 Respiratory Rate 26 H 16 19 Blood Pressure 118/64 Pulse Oximetry 97 96 07/27/18 20:00 07/27/18 23:35 07/28/18 00:00 Temperature 98.3 F 98.2 F Pulse Rate 89 70 57 L Respiratory Rate 18 19 16 Blood Pressure 130/70 99/63 L Pulse Oximetry 97 95 07/28/18 03:54 07/28/18 04:00 07/28/18 08:00 Temperature 98.4 F 98.9 F Pulse Rate 77 77 79 Respiratory Rate 17 21 25 H Blood Pressure 126/69 140/77 Pulse Oximetry 95 96 07/28/18 08:35 07/28/18 08:38 Temperature Pulse Rate 79 Respiratory Rate 20 Blood Pressure Pulse Oximetry 95 I&O: Intake & Output 07/26/18 07/27/18 07/28/18 07/29/18 06:59 06:59 06:59 06:59 Intake Total 1460 / 1460 1150 / 1150 1600 / 1600 Output Total 1850 / 1850 3000 / 3000 3050 / 3050 Balance -390 / -390 -1850 / -1850 -1450 / -1450 Weight 164 lb 0.383 oz 164 lb 0.383 oz 157 lb 3.033 oz Physical Exam: CONSTITUTIONAL/GENERAL: This is an adequately nourished patient, in no apparent distress. TUBES/LINES/DRAINS: Left IJ, Cline SKIN: No jaundice, rashes, or lesions. Ecchymoses on upper extremities. No wounds seen anteriorly. Skin temperature appropriate. Not diaphoretic. HEAD: Atraumatic. Normocephalic. EYES: Pupils equal and round and reactive. Extraocular motions intact. No scleral icterus. No injection or drainage. Fundi not examined. ENT: Hearing diminished. Nose without bleeding or purulent drainage. Throat without visible erythema, exudates, masses, or lesions. NECK: Trachea midline. Supple, nontender. No palpable thyroid enlargement or nodularity. CARDIOVASCULAR: Irregular rhythm, controlled rate, no rub murmur or gallop. RESPIRATORY/CHEST: Lungs diminished, tachypneic, no wheezes rhonchi or crackles GASTROINTESTINAL: Abdomen soft, non-tender, nondistended. No hepato-splenomegaly , or palpable masses. No guarding. Bowel sounds present. GENITOURINARY: Without palpable bladder distension. Cline catheter in place. MUSCULOSKELETAL: Extremities without clubbing, cyanosis, or edema. No joint tenderness or effusion noted. No calf tenderness. No mottling or clubbing. LYMPHATICS: No palpable cervical or supraclavicular adenopathy. NEUROLOGICAL: Awake and alert. Motor and sensory grossly within normal limits. Follows commands. Cognitively sharp. Moves all extremities. PSYCHIATRIC: Anxious, dyspneic. . Diagnostic Tests Laboratory: Laboratory Results - last 72 hr 07/24/18 07/25/18 07/25/18 14:26 17:48 23:53 WBC RBC Hgb Hct MCV MCH MCHC RDW Plt Count MPV Neut % (Auto) Lymph % (Auto) [place] % (Auto) Eos % (Auto) Baso % (Auto) Neut # (Auto) Lymph # (Auto) [place] # (Auto) Eos # (Auto) Baso # (Auto) WBC Differential Differential Comment Sodium Potassium Chloride Carbon Dioxide Anion Gap BUN Creatinine Estimated GFR POC Glucose 126 H 126 H Random Glucose Calcium Phosphorus Magnesium Total Bilirubin AST ALT Alkaline Phosphatase Total Protein Albumin C. pneumoniae IgG Titer 1:64 H C. pneumoniae IgA Titer <1:16 C. pneumoniae IgM Titer <1:10 C. pneumoniae Ab Interp Past infection M. pneumoniae Interp . Mycoplasma pneumon IgG Positive Mycoplasma pneumon IgM Negative 07/26/18 07/26/18 07/26/18 05:01 05:01 06:25 WBC 7.9 RBC 3.97 L Hgb 13.3 Hct 39.4 MCV 99.2 MCH 33.6 MCHC 33.8 RDW 12.6 Plt Count 169 MPV 8.1 Neut % (Auto) 91.2 H Lymph % (Auto) 3.8 L [place] % (Auto) 5.0 Eos % (Auto) 0.0 Baso % (Auto) 0.0 Neut # (Auto) 7.2 Lymph # (Auto) 0.3 L [place] # (Auto) 0.4 Eos # (Auto) 0.0 Baso # (Auto) 0.0 WBC Differential . Differential Comment Auto diff final Sodium 144 Potassium 3.3 L Chloride 102 Carbon Dioxide 32.9 H Anion Gap 9 BUN 27 H Creatinine 1.01 Estimated GFR 70 L POC Glucose 105 Random Glucose 105 Calcium 8.4 L Phosphorus 3.2 Magnesium 2.6 H Total Bilirubin 0.6 AST 16 ALT 34 Alkaline Phosphatase 47 Total Protein 5.4 L Albumin 2.8 L C. pneumoniae IgG Titer C. pneumoniae IgA Titer C. pneumoniae IgM Titer C. pneumoniae Ab Interp M. pneumoniae Interp Mycoplasma pneumon IgG Mycoplasma pneumon IgM 07/26/18 07/26/18 07/26/18 11:35 18:12 23:54 WBC RBC Hgb Hct MCV MCH MCHC RDW Plt Count MPV Neut % (Auto) Lymph % (Auto) [place] % (Auto) Eos % (Auto) Baso % (Auto) Neut # (Auto) Lymph # (Auto) [place] # (Auto) Eos # (Auto) Baso # (Auto) WBC Differential Differential Comment Sodium Potassium Chloride Carbon Dioxide Anion Gap BUN Creatinine Estimated GFR POC Glucose 122 H 118 H 130 H Random Glucose Calcium Phosphorus Magnesium Total Bilirubin AST ALT Alkaline Phosphatase Total Protein Albumin C. pneumoniae IgG Titer C. pneumoniae IgA Titer C. pneumoniae IgM Titer C. pneumoniae Ab Interp M. pneumoniae Interp Mycoplasma pneumon IgG Mycoplasma pneumon IgM 07/27/18 07/27/18 07/27/18 03:45 03:45 11:45 WBC 7.6 RBC 4.11 L Hgb 13.9 Hct 41.0 MCV 99.8 MCH 33.8 MCHC 33.9 RDW 12.8 Plt Count 172 MPV 8.2 Neut % (Auto) 90.0 H Lymph % (Auto) 3.2 L [place] % (Auto) 6.7 Eos % (Auto) 0.0 Baso % (Auto) 0.1 Neut # (Auto) 6.9 Lymph # (Auto) 0.2 L [place] # (Auto) 0.5 Eos # (Auto) 0.0 Baso # (Auto) 0.0 WBC Differential . Differential Comment Auto diff final Sodium 143 Potassium 3.2 L Chloride 99 Carbon Dioxide 36.5 H Anion Gap 8 BUN 29 H Creatinine 0.96 Estimated GFR 74 L POC Glucose 120 H Random Glucose 113 H Calcium 8.4 L Phosphorus 2.5 Magnesium 2.3 Total Bilirubin 0.8 AST 18 ALT 36 Alkaline Phosphatase 50 Total Protein 5.5 L Albumin 3.0 L C. pneumoniae IgG Titer C. pneumoniae IgA Titer C. pneumoniae IgM Titer C. pneumoniae Ab Interp M. pneumoniae Interp Mycoplasma pneumon IgG Mycoplasma pneumon IgM 07/27/18 07/27/18 07/28/18 17:37 17:40 00:32 WBC RBC Hgb Hct MCV MCH MCHC RDW Plt Count MPV Neut % (Auto) Lymph % (Auto) [place] % (Auto) Eos % (Auto) Baso % (Auto) Neut # (Auto) Lymph # (Auto) [place] # (Auto) Eos # (Auto) Baso # (Auto) WBC Differential Differential Comment Sodium Potassium 3.2 L Chloride Carbon Dioxide Anion Gap BUN Creatinine Estimated GFR POC Glucose 165 H 139 H Random Glucose Calcium Phosphorus Magnesium Total Bilirubin AST ALT Alkaline Phosphatase Total Protein Albumin C. pneumoniae IgG Titer C. pneumoniae IgA Titer C. pneumoniae IgM Titer C. pneumoniae Ab Interp M. pneumoniae Interp Mycoplasma pneumon IgG Mycoplasma pneumon IgM 07/28/18 07/28/18 07/28/18 06:04 08:52 08:52 WBC 10.3 RBC 4.33 L Hgb 14.5 Hct 43.4 MCV 100.2 H MCH 33.5 MCHC 33.5 RDW 13.0 Plt Count 193 MPV 8.4 Neut % (Auto) 89.9 H Lymph % (Auto) 2.8 L [place] % (Auto) 7.3 Eos % (Auto) 0.0 Baso % (Auto) 0.0 Neut # (Auto) 9.2 H Lymph # (Auto) 0.3 L [place] # (Auto) 0.7 Eos # (Auto) 0.0 Baso # (Auto) 0.0 WBC Differential . Differential Comment Auto diff final Sodium 145 Potassium 3.9 Chloride 101 Carbon Dioxide 37.9 H Anion Gap 6 BUN 32 H Creatinine 0.91 Estimated GFR 78 L POC Glucose 119 H Random Glucose 122 H Calcium 9.0 Phosphorus 2.3 L Magnesium 2.6 H Total Bilirubin 0.9 AST 18 ALT 40 Alkaline Phosphatase 48 Total Protein 5.6 L Albumin 3.0 L C. pneumoniae IgG Titer C. pneumoniae IgA Titer C. pneumoniae IgM Titer C. pneumoniae Ab Interp M. pneumoniae Interp Mycoplasma pneumon IgG Mycoplasma pneumon IgM 07/28/18 11:44 WBC RBC Hgb Hct MCV MCH MCHC RDW Plt Count MPV Neut % (Auto) Lymph % (Auto) [place] % (Auto) Eos % (Auto) Baso % (Auto) Neut # (Auto) Lymph # (Auto) [place] # (Auto) Eos # (Auto) Baso # (Auto) WBC Differential Differential Comment Sodium Potassium Chloride Carbon Dioxide Anion Gap BUN Creatinine Estimated GFR POC Glucose 135 H Random Glucose Calcium Phosphorus Magnesium Total Bilirubin AST ALT Alkaline Phosphatase Total Protein Albumin C. pneumoniae IgG Titer C. pneumoniae IgA Titer C. pneumoniae IgM Titer C. pneumoniae Ab Interp M. pneumoniae Interp Mycoplasma pneumon IgG Mycoplasma pneumon IgM Result Diagrams: 07/29/18 06:40 07/29/18 06:40 Microbiology: Microbiology 07/23/18 13:25 Aerobic Blood Culture - Final Blood - Peripheral No growth in 5 days Anaerobic Blood Culture - Final No growth in 5 days 07/23/18 13:20 Aerobic Blood Culture - Final Blood - Peripheral No growth in 5 days Anaerobic Blood Culture - Final No growth in 5 days 07/25/18 18:00 Gram Stain - Final Sputum - Oral Tracheal Aspirate Sputum Culture - Final Heavy growth normal respiratory monica Imaging: Chest CTA 07/23/18 00:00 CONCLUSION: 1. COPD with mild subsegmental airspace disease in the lingula. 2. No evidence of pulmonary embolism. 3. Mild background groundglass opacity with small bilateral effusions which may represent mild congestive heart failure. 4. Calcified coronary arteries. Venous Doppler Study 07/23/18 00:00 CONCLUSION: The study is negative for lower extremity deep venous thrombosis. Chest X-Ray 07/23/18 13:18 CONCLUSION: Bibasilar airspace opacities, new since the prior study. The appearance could represent pulmonary edema in the appropriate clinical setting. Chest X-Ray 07/24/18 12:10 CONCLUSION: 1. Endotracheal tube and nasogastric tube now in place. 2. No change in mild bilateral lower lung zone opacity. Chest X-Ray 07/24/18 18:39 CONCLUSION: Left-sided catheter with an acute bend at the aortic arch. Intravenous location cannot be confirmed. No evidence of pneumothorax. A lateral airspace disease and effusions COPD Chest X-Ray 07/24/18 19:14 CONCLUSION: New right jugular central venous catheter which appears to be in appropriate position. No evidence of pneumothorax. Left-sided line as described. No change in bilateral airspace disease and bilateral effusions. Head CT 07/25/18 00:00 CONCLUSION: 1. Bilateral cystic hygromas/chronic subdural hematomas that are right greater than left and with associated 6 mm of leftward midline shift. 2. No acute blood or evidence of an acute ischemic event. 3. Atrophy. . Chest X-Ray 07/25/18 06:00 CONCLUSION: Bibasilar consolidation without significant change. Head MRI 07/25/18 07:45 CONCLUSION: 1. Redemonstration of bilateral cystic hygromas, slightly asymmetric (right greater than left) and associated 5 mm right to left midline shift. 2. Otherwise, no acute abnormality. Specifically, no acute hemorrhage, hydrocephalus or abnormal enhancement. Chest X-Ray 07/27/18 09:22 CONCLUSION: 1. No significant interval change following extubation and removal of NGT. 2. Stable bilateral lower lung zone airspace disease, right greater than left, with questionable trace associated pleural fluid. Procedures: 07/24: Intubation 07/24: Left IJ central line insertion . Patient/Family Conference Present at Family Conference: Spoke with patient and his niece, Tanika, at bedside. Reviewed palliative care purpose and focus, past medical, social, surgical, psychosocial history. Reviewed current clinical data and goals of care. Patient states that he wishes to discuss this with his niece in greater detail. 5 wishes booklet was provided to assist them in guiding the conversation. Plan to discuss again tomorrow in follow-up. . Family Conference Location: Bedside Issues Discussed: * Palliative care role, purpose, approach * Additional medical, psychosocial, and spiritual history * Patients general health, functional status, and cognitive changes in the months leading up to the current hospitalization * Patient/family understanding of the current medical problems * Patient/family understanding of prognosis * Patients goals of care as best understood from advance directives and/or conversations and/or values * Current medical treatment options and benefits/burdens of those options * Likely scenarios comparing ongoing aggressive care with a transition to comfort measures only * Questions answered to the best of my ability * Palliative care contact information provided Assessment and Plan - Disease Oriented Problem List (1) Acute exacerbation of chronic obstructive airways disease (2) Elevated troponin (3) Pulmonary infiltrate (4) Atrial flutter (5) Pneumonia - Symptom Scale (1) Anxiety 0-10 Scale: 8 (2) Dyspnea 0-10 Scale: 8 Pertinent Non-Medical Issues: Psychosocial: He was born in [facility] and 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 At that time he joined the [employer] and served in [place], remaining in the [employer] for 40 years retiring. He was for 61 years and lost his a few years ago. He does not have children but is very close to his niece, Tanika. Spiritual: Declined pediatric lpn. Legal: Patient states he has a living will and a healthcare surrogate, his niece , Tanika however those documents are not readily available at this time. Ethical issues impacting care: None noted. . Important Contacts: Niece: Tanika Fermin . Prognosis: His prognosis is poor. He is significantly dyspneic on 4 L nasal cannula. The patient himself states that this has been progressively worsening in spite of medication compliance with prescribed therapy. His echocardiogram does show a decreased ejection fraction over his baseline 40% now less than 20% with mildly elevated BNP and elevated troponin. He has now developed new onset atrial flutter, likely secondary to his pneumonia. He is at significant risk for continued respiratory decline and reintubation. He would be hospice appropriate if goals were consistent. Code Status: Full Code Plan: PLAN: Legal decision maker: The patient is capacitated for decision-making, however discusses all decisions with his healthcare surrogate, Tanika. Per [place] statutes as he is and has no children, parents and siblings are , she would fit the statute definition of a healthcare proxy Goals: To be determined CODE STATUS: FULL CODE SYMPTOMS: * Dyspnea: He is visibly dyspneic with any activity or speech. He is currently receiving albuterol nebulizers as needed, Symbicort 160/4.5 mcg inhaled 2 puffs twice daily, furosemide 40 mg IV daily, guaifenesin 600 mg p.o. twice daily, Solu-Medrol 40 mg IV every 12, Zosyn 4.5 g every 6 hours and azithromycin 500 mg daily for pneumonia treatment. He currently remains on 4 L nasal cannula, saturating adequately. * Anxiety: He has been receiving BuSpar 5 mg p.o. 3 times daily however that was increased today to 10 mg [address] Stovall. Due to his significant dyspnea and anxiety at this evaluation Ativan 1 mg IV every 2 hours was initiated as well as morphine 4 mg IV every 6 hours as needed for anxiety and dyspnea. SUMMARY This is an 87-year-old male with severe COPD, now admitted with pneumonia, COPD exacerbation complicated by atrial flutter, declining ejection fraction of less than 20% and recent intubation. He is at elevated risk for reintubation given his significant comorbidities. He stated he wished to think about the decision to reintubate or accept cardiopulmonary resuscitation overnight and discuss it with his niece prior to making a decision regarding CODE STATUS. 5 wishes booklet was provided to assist in the conversation. Plan for follow-up tomorrow. He would be hospice appropriate if goals were consistent. Palliative care will continue to follow the patient during hospital course as condition evolves, to assist patient/decision-maker with understanding of their medical conditions, weighing benefits/burdens of treatment options, for clarification of goals of treatment. Additionally will assist with any symptoms of palliative concern. . Appreciation Thank you for the opportunity to participate in the care of Tommy Alba. Attestation Attestation: To help prompt me to consider important information that might be impacting today's encounter and assessment, information from prior notes written by myself or my colleagues may have been "brought forward" into today's note. My signature on this note, however, is an attestation that I personally performed the exam, history, and/or decision-making noted today, and, unless otherwise indicated, the interactions with patient, family, and staff as well as the review of records all occurred today. I also attest that the listed assessment and stated plan reflect my best clinical judgment today based on the combination of historical information, prior notes, and today's exam/ interactions. When time spent is documented, it refers only to time spent today by the signer, or if indicated, combined time spent today by collaborating physician/nurse practitioner. .
--- NOTE | 2018-07-28 15:41 | P.PNPL ---
Subjective Interval history: 87 YOWM with Severe COPD, RF, s/p extubation SOB with any activity Anxiety makes his breathing even worse Echo EF 20-25% Feels weak Appetite poor Physical Exam Vital signs: Vital Signs 07/27/18 16:00 07/27/18 16:35 07/27/18 19:42 Temperature 98.0 F Pulse Rate 79 78 80 Respiratory Rate 26 H 16 19 Blood Pressure 118/64 Pulse Oximetry 97 96 07/27/18 20:00 07/27/18 23:35 07/28/18 00:00 Temperature 98.3 F 98.2 F Pulse Rate 89 70 57 L Respiratory Rate 18 19 16 Blood Pressure 130/70 99/63 L Pulse Oximetry 97 95 07/28/18 03:54 07/28/18 04:00 07/28/18 08:00 Temperature 98.4 F 98.9 F Pulse Rate 77 77 79 Respiratory Rate 17 21 25 H Blood Pressure 126/69 140/77 Pulse Oximetry 95 96 07/28/18 08:35 07/28/18 08:38 07/28/18 12:00 Temperature 98.1 F Pulse Rate 79 81 Respiratory Rate 20 26 H Blood Pressure 143/76 H Pulse Oximetry 95 93 L Intake & Output 07/27/18 07/28/18 07/28/18 18:59 06:59 18:59 Intake Total 1000 / 1000 600 / 600 100 / 100 Output Total 2550 / 2550 500 / 500 Balance -1550 / -1550 100 / 100 100 / 100 Weight 71.3 kg Intake: IV 400 / 400 300 / 300 100 / 100 Zosyn 4.5 GM Premix 4.5 gm In 200 / 200 200 / 200 100 / 100 100 ml @ 200 mls/hr IV.SIG Q6H IRENA Rx#:[id number] KCl 40 mEq Premix Inj 40 meq In 200 / 200 100 / 100 100 ml @ 25 mls/hr IV.SIG Q2H PRN Rx#:[id number] Oral 600 / 600 300 / 300 Output: Urine Amount (Catheter) 2550 / 2550 500 / 500 Indwelling Urethral Catheter 2550 / 2550 500 / 500 Other: Date of Last Bowel Movement 07/27/18 07/27/18 07/28/18 GENERAL: Frail elderly WM, sob even at rest. SKIN: Warm and dry. HEAD: Normocephalic. EYES: No scleral icterus. No injection or drainage. NECK: Supple, trachea midline. No JVD or lymphadenopathy. CARDIOVASCULAR: Regular rate and rhythm without murmurs, gallops, or rubs. RESPIRATORY: Breath sounds equal bilaterally. No accessory muscle use. GASTROINTESTINAL: Abdomen soft, non-tender, nondistended. MUSCULOSKELETAL: No cyanosis, or edema. BACK: Nontender without obvious deformity. No CVA tenderness.Frail - Urinary Catheter Management Condom Cath placed during this visit: no Urethral indwelling: No Indwelling Urethral Catheter Cath placed during this visit: yes Reason for continuing: Acute urinary retention Insertion date: 07/24/18 Assessment and Plan - Plan IMPRESSION: 1. Respiratory failure, status post extubation. 2. Severe chronic obstructive pulmonary disease. 3. Increased troponin. 4. Subdural hematoma. 5. CMP 6. Anxiety disorder PLAN: Supplement 02 CPAP PRN Increase Buspar 10 mg tid for anxiety IV Solumedrol Cont Abx Encourage po DW pt and his niece.
--- NOTE | 2018-07-28 16:59 | P.PNCC ---
Subjective Subjective Remarks/Hospital Course: This is an 87-year-old male. Full code. Admission 07/23/2018. Date of consultation 07/24/2018. Past medical history includes recent hospitalization 06/21-06/23 for COPD exacerbation for which he is 2 L nasal cannulae dependent as of 06/15, anxiety disorder, BPH, prostate cancer, essential hypertension, myocardial infarction, glaucoma, rectal/anal stenosis, diverticulosis, internal and external hemorrhoids, degenerative disease, emphysema seen by Dr. Stovall and known systolic heart failure ejection fraction around 40% followed by Dr. Andrade. Patient originally presented to [place] [facility] via [facility] for sudden onset shortness of breath. The patient reports this morning when he got up to go to the restroom he suddenly became very dyspneic to the point where he could not get off the commode for about 45 minutes. His saturations are 74% but symptomatic include after receiving an albuterol/ipratropium aerosol treatment. His heart rate was reportedly in the high 100s and he was given IV diltiazem. Patient had a negative CT pulmonary comfort pulmonary embolism and lower extremity Dopplers for deep venous thrombosis. He is placed on a regimen of aggressive pulmonary toilet aerosolized medication therapy and IV methylprednisolone succinate. He remained in atrial fibrillation with rapid ventricular response the heart rate in the 100s. Troponin did bump from 0.36. Denies chest pain. Noted negative nuclear medicine scan 06/10 showing an old anteroseptal infarct. EF around 40%. No reversibility. Most recent pulmonary functions revealed F vital capacity 57% and FEV1 at 37%. Today, patient was transferred to ICU emergently for worsening respiratory failure. Discussed with patient electively intubated due to impending respiratory failure 07/25 Patient is intubated on Fentanyl infusion for sedation. Off Levophed. Afebrile. 07/26 Patient was extubated yesterday on 3L oxygen. Afebrile. 07/27 No events overnight remains on 3L oxygen. 07/28: Appears anxious. On nasal cannula currently. Has met with palliative care and is deciding regarding CODE STATUS. Objective Vital Signs / I&O: Vital Signs 07/27/18 19:42 07/27/18 20:00 07/27/18 23:35 Temperature 98.3 F Pulse Rate 80 89 70 Respiratory Rate Blood Pressure 130/70 Pulse Oximetry 96 97 07/28/18 00:00 07/28/18 03:54 07/28/18 04:00 Temperature 98.2 F 98.4 F Pulse Rate 57 L 77 77 Respiratory Rate 16 17 21 Blood Pressure 99/63 L 126/69 Pulse Oximetry 95 95 07/28/18 08:00 07/28/18 08:35 07/28/18 08:38 Temperature 98.9 F Pulse Rate 79 79 Respiratory Rate 25 H 20 Blood Pressure 140/77 Pulse Oximetry 96 95 07/28/18 12:00 07/28/18 15:58 Temperature 98.1 F Pulse Rate 81 78 Respiratory Rate 26 H 20 Blood Pressure 143/76 H Pulse Oximetry 93 L Intake & Output 07/27/18 07/28/18 07/28/18 18:59 06:59 18:59 Intake Total 1000 / 1000 600 / 600 100 / 100 Output Total 2550 / 2550 500 / 500 Balance -1550 / -1550 100 / 100 100 / 100 Weight 71.3 kg Intake: IV 400 / 400 300 / 300 100 / 100 Zosyn 4.5 GM Premix 4.5 gm In 200 / 200 200 / 200 100 / 100 100 ml @ 200 mls/hr IV.SIG Q6H IRENA Rx#:[id number] KCl 40 mEq Premix Inj 40 meq In 200 / 200 100 / 100 100 ml @ 25 mls/hr IV.SIG Q2H PRN Rx#:[id number] Oral 600 / 600 300 / 300 Output: Urine Amount (Catheter) 2550 / 2550 500 / 500 Indwelling Urethral Catheter 2550 / 2550 500 / 500 Other: Date of Last Bowel Movement 07/27/18 07/27/18 07/28/18 Result Diagrams: 07/28/18 08:52 07/28/18 08:52 Objective Remarks: GENERAL: Patient is 87 yo lying in bed, appears slightly anxious on nasal cannula. SKIN: Warm and dry. HEAD: Normocephalic. EYES: No scleral icterus. No injection or drainage. NECK: Supple, trachea midline. No JVD or lymphadenopathy. CARDIOVASCULAR: Regular rate and rhythm without murmurs, gallops, or rubs. RESPIRATORY: Breath sounds equal bilaterally. No accessory muscle use. Scattered rhonchi bilaterally, no wheezing GASTROINTESTINAL: Abdomen soft, non-tender, nondistended. MUSCULOSKELETAL: No cyanosis, or edema. Neuro: Awake and alert Assessment and Plan - Assessment and Plan Plan: Neuro/Psych: Anxiety disorder NOS Glaucoma Monitor neuro status avoid any sedatives Acetaminophen 650 by tube every 6 hours as needed fever Continue Brimonidine 0.2% 1 drop twice daily for glaucoma CT brain: Bilateral cystic hygromas/chronic subdural hematomas that are right greater than left and with associated 6 mm of leftward midline shift. No acute blood or evidence of an acute ischemic event. Atrophy. MRI brain07/25: Redemonstration of bilateral cystic hygromas, slightly asymmetric (right greater than left) and associated 5 mm right to left midline shift. Otherwise, no acute abnormality. Specifically, no acute hemorrhage, hydrocephalus or abnormal enhancement NSG is following- Discussed with Dr. Dhaliwal Ativan/morphine as needed for anxiety CV: NSTEMI with elevated troponin 0 0.36 Left bundle branch block History of myocardial infarction Essential hypertension Cards is following /Dr. Stephens. Echo showed EF < 20% Troponin currently in a downward trend. On Diltiazem 60 mg every 6 hours, monitor HR and BP keep MAP>65mmHg Apixaban 5 mg twice daily on hold. Nuclear medicine stress test 06/10 revealed old anteroseptal infarct. EF 42%. No reversibility. 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 Condom catheter. Cline catheter if indicated indwelling Monitor renal function, I/O's, electrolytes replacement per protocol. Will need K replacement today On Lasix 40mg IV daily Endo: History of thyrotoxicosis SSI with aspart insulin every 6 hours/medium protocol to maintain euglycemia while on steroids Continue methimazole 5 mg daily TSH: 0.35, FT4: 1.12, FT3: 1.31 Heme: History of prostate cancer Leukopenia Monitor CBC daily. Follow trends. ID: 07/23 -blood cultures 2 -NGTD Influenza a/B, Legionella and pneumococcal urine antigens no growth Continue piperacillin/tazobactam and azithromycin MSK: Chronic shoulder pain Osteoarthritic PT/OT evaluate and treat Access -Utilize peripheral IV. Right IJ CVP placed 07/24, d/c central line Prophylaxis -GI -lansoprazole DVT- -SCD/ for DVT prophylaxis. Eliquis placed on hold I spoke with patient and his niece at bedside. I did explain to him that if his respiratory status declined he might require BiPAP and intubation. He wishes to think about intubation at this time. He is sure that he would not want a tracheostomy if he got intubated and was not able to get off the ventilator. He is inclined towards no intubation however wishes to discuss it further with his niece. Palliative care consulted. Level 3
[2018-07-28] MEDS: Azithromycin 250 MG Tablet PO SCH (17:29)
[2018-07-28] MEDS: Morphine Inj 4 MG/ML Vial IV.PUSH PRN (19:03)
[2018-07-29] MEDS: Piperacil/Tazo 4.5 GM Premix 4.5 GM/100 ML BAG IV.SIG SCH ×3 (02:43→15:16)
[2018-07-29] MEDS: Oral Hygiene Kit OROPHARYNG SCH ×3 (04:44→16:17)
[2018-07-29] MEDS: Insulin NovoLOG Aspart Correctional Sugar Inj SQ SCH ×3 (06:31→17:55)
[2018-07-29 07:03] LABS: Baso % (Auto) 0.1 % (0.0-2.0); Hematocrit 45.1 % (39.0-51.0); Hemoglobin 14.9 gm/dL (13.0-17.0); Lymph # (Auto) 0.2 th/mm3 (1.0-4.8); Lymph % (Auto) 2.3 % (9.0-44.0); Mean Corpuscular Hemoglobin 33.2 pg (27.0-34.0); Mean Corpuscular Volume 100.9 fL (80.0-100.0); Mean Platelet Volume 7.8 fL (7.0-11.0); Mono # (Auto) 0.5 th/mm3 (0.0-0.9); Mono % (Auto) 5.4 % (0.0-8.0); Neut # (Auto) 9.1 th/mm3 (1.8-7.7); Neut % (Auto) 92.2 % (16.0-70.0); Platelet Count 175 th/mm3 (150-450); Red Blood Count 4.47 mil/mm3 (4.50-5.90); Red Cell Distribution Width 12.7 % (11.6-17.2); White Blood Count 9.8 th/mm3 (4.0-11.0)
[2018-07-29] MEDS: Morphine Inj 4 MG/ML Vial IV.PUSH PRN ×2 (07:38→17:56)
[2018-07-29 07:44] LABS: Alanine Aminotransferase 49 U/L (12-78); Albumin 2.8 g/dL (3.4-5.0); Alkaline Phosphatase 44 U/L (45-117); Anion Gap 7 meq/L (5-15); Aspartate Aminotransferase 15 U/L (15-37); Blood Urea Nitrogen 41 mg/dL (7-18); Calcium 8.4 mg/dL (8.5-10.1); Carbon Dioxide 41.5 meq/L (21.0-32.0); Chloride 100 meq/L (98-107); Glomerular Filtration Rate 80 mL/min (>89); Glucose,Random 122 mg/dL (74-106); Magnesium 2.9 mg/dL (1.5-2.5); Phosphorus 4.9 mg/dL (2.5-4.9); Potassium 3.2 meq/L (3.5-5.1); Sodium 148 meq/L (136-145); Total Protein 5.5 g/dL (6.4-8.2)
[2018-07-29] MEDS: MethylPREDNISolone Sod Succinate Inj 40 MG/ML Vial IV.PUSH SCH (09:07)
[2018-07-29] MEDS: Hypromellose 0.3% Opth Gel 10 GM Bottle EACH EYE SCH (09:08)
[2018-07-29] MEDS: dilTIAZem 60 MG Tablet PO SCH ×3 (09:08→17:55)
[2018-07-29] MEDS: Finasteride 5 MG Tablet PO SCH (09:08)
[2018-07-29] MEDS: Senna/Docusate Sodium 8.6/50 MG Tablet PO SCH (09:08)
[2018-07-29] MEDS: guaiFENesin 600 MG ER Tablet PO SCH (09:08)
[2018-07-29] MEDS: Gabapentin 100 MG Capsule PO SCH ×3 (09:08→17:55)
[2018-07-29] MEDS: Chlorhexidine 0.12% Oral Kit 15 ML UDC OROPHARYNG SCH (09:08)
[2018-07-29] MEDS: methIMAzole 5 MG Tablet PO SCH (09:08)
[2018-07-29] MEDS: Brimonidine 0.2% Opth Drops 5 ML Bottle EACH EYE SCH (09:09)
[2018-07-29] MEDS: Budesonide-Formoterol 160/4.5 MCG 6 GM Inhaler INH SCH (09:10)
[2018-07-29] MEDS: Potassium Chlor 40 mEq Premix 40 MEQ/100 ML PIGGYBACK IV.SIG PRN (09:11)
--- NOTE | 2018-07-29 09:27 | P.PNCC ---
Subjective Subjective Remarks/Hospital Course: This is an 87-year-old male. Full code. Admission 07/23/2018. Date of consultation 07/24/2018. Past medical history includes recent hospitalization 06/21-06/23 for COPD exacerbation for which he is 2 L nasal cannulae dependent as of 06/15, anxiety disorder, BPH, prostate cancer, essential hypertension, myocardial infarction, glaucoma, rectal/anal stenosis, diverticulosis, internal and external hemorrhoids, degenerative disease, emphysema seen by Dr. Stovall and known systolic heart failure ejection fraction around 40% followed by Dr. Andrade. Patient originally presented to [facility] via [facility] for sudden onset shortness of breath. The patient reports this morning when he got up to go to the restroom he suddenly became very dyspneic to the point where he could not get off the commode for about 45 minutes. His saturations are 74% but symptomatic include after receiving an albuterol/ipratropium aerosol treatment. His heart rate was reportedly in the high 100s and he was given IV diltiazem. Patient had a negative CT pulmonary comfort pulmonary embolism and lower extremity Dopplers for deep venous thrombosis. He is placed on a regimen of aggressive pulmonary toilet aerosolized medication therapy and IV methylprednisolone succinate. He remained in atrial fibrillation with rapid ventricular response the heart rate in the 100s. Troponin did bump from 0.36. Denies chest pain. Noted negative nuclear medicine scan 06/10 showing an old anteroseptal infarct. EF around 40%. No reversibility. Most recent pulmonary functions revealed F vital capacity 57% and FEV1 at 37%. Today, patient was transferred to ICU emergently for worsening respiratory failure. Discussed with patient electively intubated due to impending respiratory failure 07/25 Patient is intubated on Fentanyl infusion for sedation. Off Levophed. Afebrile. 07/26 Patient was extubated yesterday on 3L oxygen. Afebrile. 07/27 No events overnight remains on 3L oxygen. 07/28: Appears anxious. On nasal cannula currently. Has met with palliative care and is deciding regarding CODE STATUS 07/29 Patient is on 50%VM . Awake. Afebrile. Objective Vital Signs / I&O: Vital Signs 07/28/18 10:00 07/28/18 11:00 07/28/18 12:00 Temperature 98.1 F Pulse Rate 104 H 89 81 Respiratory Rate 34 H 26 H 26 H Blood Pressure 157/80 H 128/76 143/76 H Pulse Oximetry 93 L 93 L 93 L 07/28/18 13:00 07/28/18 14:00 07/28/18 15:00 Temperature Pulse Rate 82 81 83 Respiratory Rate 33 H 26 H 32 H Blood Pressure 131/80 128/80 Pulse Oximetry 92 L 94 L 92 L 07/28/18 15:01 07/28/18 15:58 07/28/18 16:00 Temperature 97.9 F Pulse Rate 83 78 82 Respiratory Rate 35 H 20 35 H Blood Pressure 177/74 H 128/69 Pulse Oximetry 93 L 97 07/28/18 16:01 07/28/18 17:00 07/28/18 18:00 Temperature Pulse Rate 80 77 79 Respiratory Rate 39 H 32 H 31 H Blood Pressure 128/69 121/61 143/69 H Pulse Oximetry 96 86 L 92 L 07/28/18 19:00 07/28/18 19:01 07/28/18 20:00 Temperature 97.9 F Pulse Rate 108 H 107 H 79 Respiratory Rate 37 H 31 H 62 H Blood Pressure 164/94 H 116/58 L Pulse Oximetry 76 L 80 L 95 07/28/18 20:36 07/28/18 21:00 07/28/18 22:00 Temperature Pulse Rate 78 79 77 Respiratory Rate 20 25 H 19 Blood Pressure 91/52 L Pulse Oximetry 97 91 L 96 07/28/18 22:01 07/28/18 23:00 07/29/18 00:00 Temperature Pulse Rate 77 76 76 Respiratory Rate 19 18 18 Blood Pressure 105/59 L 111/58 L 116/63 Pulse Oximetry 97 95 98 07/29/18 01:00 07/29/18 01:01 07/29/18 02:00 Temperature Pulse Rate 68 70 54 L Respiratory Rate 18 19 32 H Blood Pressure 104/55 L 100/57 L Pulse Oximetry 92 L 91 L 96 07/29/18 03:00 07/29/18 04:00 07/29/18 04:01 Temperature Pulse Rate 50 L 62 66 Respiratory Rate 31 H 21 20 Blood Pressure 102/55 L 131/61 Pulse Oximetry 94 L 95 97 07/29/18 05:00 07/29/18 08:59 Temperature Pulse Rate 73 Respiratory Rate Blood Pressure 129/75 Pulse Oximetry 100 94 L Intake & Output 07/28/18 07/29/18 07/29/18 18:59 06:59 18:59 Intake Total 650 / 650 510 / 510 Output Total 2600 / 2600 300 / 300 Balance -1950 / -1950 210 / 210 Weight 69.9 kg Intake: IV 200 / 200 460 / 460 Zosyn 4.5 GM Premix 4.5 gm In 200 / 200 200 / 200 100 ml @ 200 mls/hr IV.SIG Q6H IRENA Rx#:[id number] Sodium Phosphate Inj 30 MMOL In 260 / 260 NS Inj 250 ML @ 42 mls/hr IV. SIG UNSCH PRN Rx#:[id number] Oral 450 / 450 Oral Supplement 50 / 50 Output: Urine Amount (Catheter) 2600 / 2600 300 / 300 Indwelling Urethral Catheter 2600 / 2600 300 / 300 Other: Date of Last Bowel Movement 07/28/18 07/28/18 # Bowel Movements 1 Result Diagrams: 07/29/18 06:40 07/29/18 06:40 Other Results: Laboratory Results - last 12 hr 07/28/18 07/29/18 07/29/18 23:45 04:56 06:40 WBC 9.8 RBC 4.47 L Hgb 14.9 Hct 45.1 MCV 100.9 H MCH 33.2 MCHC 33.0 RDW 12.7 Plt Count 175 MPV 7.8 Neut % (Auto) 92.2 H Lymph % (Auto) 2.3 L Campbell % (Auto) 5.4 Eos % (Auto) 0.0 Baso % (Auto) 0.1 Neut # (Auto) 9.1 H Lymph # (Auto) 0.2 L Campbell # (Auto) 0.5 Eos # (Auto) 0.0 Baso # (Auto) 0.0 WBC Differential . Differential Comment Auto diff final Sodium Potassium Chloride Carbon Dioxide Anion Gap BUN Creatinine Estimated GFR POC Glucose 150 H 120 H Random Glucose Calcium Phosphorus Magnesium Total Bilirubin AST ALT Alkaline Phosphatase Total Protein Albumin 07/29/18 06:40 WBC RBC Hgb Hct MCV MCH MCHC RDW Plt Count MPV Neut % (Auto) Lymph % (Auto) Campbell % (Auto) Eos % (Auto) Baso % (Auto) Neut # (Auto) Lymph # (Auto) Campbell # (Auto) Eos # (Auto) Baso # (Auto) WBC Differential Differential Comment Sodium 148 H Potassium 3.2 L Chloride 100 Carbon Dioxide 41.5 H Anion Gap 7 BUN 41 H Creatinine 0.89 Estimated GFR 80 L POC Glucose Random Glucose 122 H Calcium 8.4 L Phosphorus 4.9 D Magnesium 2.9 H Total Bilirubin 0.8 AST 15 ALT 49 Alkaline Phosphatase 44 L Total Protein 5.5 L Albumin 2.8 L Imaging: Chest CTA 07/23/18 00:00 CONCLUSION: 1. COPD with mild subsegmental airspace disease in the lingula. 2. No evidence of pulmonary embolism. 3. Mild background groundglass opacity with small bilateral effusions which may represent mild congestive heart failure. 4. Calcified coronary arteries. Venous Doppler Study 07/23/18 00:00 CONCLUSION: The study is negative for lower extremity deep venous thrombosis. Head CT 07/25/18 00:00 CONCLUSION: 1. Bilateral cystic hygromas/chronic subdural hematomas that are right greater than left and with associated 6 mm of leftward midline shift. 2. No acute blood or evidence of an acute ischemic event. 3. Atrophy. . Head MRI 07/25/18 07:45 CONCLUSION: 1. Redemonstration of bilateral cystic hygromas, slightly asymmetric (right greater than left) and associated 5 mm right to left midline shift. 2. Otherwise, no acute abnormality. Specifically, no acute hemorrhage, hydrocephalus or abnormal enhancement. Chest X-Ray 07/27/18 09:22 CONCLUSION: 1. No significant interval change following extubation and removal of NGT. 2. Stable bilateral lower lung zone airspace disease, right greater than left, with questionable trace associated pleural fluid. Objective Remarks: GENERAL: Patient is 87 yo lying in bed, appears slightly anxious on nasal cannula. SKIN: Warm and dry. HEAD: Normocephalic. EYES: No scleral icterus. No injection or drainage. NECK: Supple, trachea midline. No JVD or lymphadenopathy. CARDIOVASCULAR: Regular rate and rhythm without murmurs, gallops, or rubs. RESPIRATORY: Breath sounds equal bilaterally. No accessory muscle use. Scattered rhonchi bilaterally, no wheezing GASTROINTESTINAL: Abdomen soft, non-tender, nondistended. MUSCULOSKELETAL: No cyanosis, or edema. Neuro: Awake and alert Assessment and Plan - Assessment and Plan Plan: Neuro/Psych: Anxiety disorder NOS Glaucoma Monitor neuro status avoid any sedatives Acetaminophen 650 by tube every 6 hours as needed fever Continue Brimonidine 0.2% 1 drop twice daily for glaucoma CT brain: Bilateral cystic hygromas/chronic subdural hematomas that are right greater than left and with associated 6 mm of leftward midline shift. No acute blood or evidence of an acute ischemic event. Atrophy. MRI brain07/25: Redemonstration of bilateral cystic hygromas, slightly asymmetric (right greater than left) and associated 5 mm right to left midline shift. Otherwise, no acute abnormality. Specifically, no acute hemorrhage, hydrocephalus or abnormal enhancement NSG is following- Discussed with Dr. Dhaliwal Ativan/morphine as needed for anxiety CV: NSTEMI with elevated troponin 0 0.36 Left bundle branch block History of myocardial infarction Essential hypertension Cards is following /Dr. Stephens. Echo showed EF < 20% Troponin currently in a downward trend. On Diltiazem 60 mg every 6 hours, monitor HR and BP keep MAP>65mmHg Apixaban 5 mg twice daily on hold. Nuclear medicine stress test 06/10 revealed old anteroseptal infarct. EF 42%. No reversibility. Resp: Acute respiratory failure History of severe emphysema/COPD Continue with oxygen keep sats >92% Continue Symbicort 160/4.52 puffs twice daily Albuterol/ipratropium aerosols every 4 hours with albuterol aerosols every 2 hours as needed for dyspnea Methylprednisolone succinate 40 mg IV BID, IS Pulmonary /Dr. Stovall GI: History of Olivares's esophagus History of rectal/anal stenosis History of colonic diverticulosis History Degenerative disc disease of internal and external hemorrhoids Lansoprazole for GI prophylaxis Docusate sodium/senna 1 tablet twice daily for bowel regimen On PO mechanical soft diet : BPH Continue to hold doxazosin 4 mg daily. Condom catheter. Cline catheter if indicated indwelling Monitor renal function, I/O's, electrolytes replacement per protocol. Will need K replacement today On Lasix 40mg IV daily Endo: History of thyrotoxicosis SSI with aspart insulin every 6 hours/medium protocol to maintain euglycemia while on steroids Continue methimazole 5 mg daily TSH: 0.35, FT4: 1.12, FT3: 1.31 Heme: History of prostate cancer Leukopenia Monitor CBC daily. Follow trends. ID: 07/23 -blood cultures 2 -NGTD Influenza a/B, Legionella and pneumococcal urine antigens no growth Continue piperacillin/tazobactam and azithromycin MSK: Chronic shoulder pain Osteoarthritic PT/OT evaluate and treat Access -Utilize peripheral IV. Right IJ CVP placed 07/24, d/c central line Prophylaxis -GI -lansoprazole DVT- -SCD/ for DVT prophylaxis. Eliquis placed on hold Palliative care is following Level 3
[2018-07-29 12:19] VITALS: O2SAT 95
--- NOTE | 2018-07-29 12:59 | P.PNPAL ---
Reason for Visit Reason for visit: a. To assist with evaluation and management of symptoms including: Dyspnea, anxiety, dysuria, confusion b. To assist medical decision maker(s) with: better understanding of current medical conditions; weighing benefits/burdens of medical treatment options; making medical treatment decisions. Subjective Subjective/Interval History: Patient seen today for a medically necessary visit to evaluate response to medication changes made yesterday for control of dyspnea and anxiety and to assist family in goals of medical treatment. His dyspnea is improved after receiving morphine twice in the last 24 hours. He remains mildly dyspneic at this evaluation but is currently back on a nasal cannula. He is mildly tachypneic, but states his air hunger is not as severe as yesterday. He describes the intensity as mild to moderate, improved from yesterday's rating of moderate to severe. No pursed lip breathing is seen today. He states that the morphine is more effective in relieving his dyspnea and the Ativan, however his Ativan is effective in helping him control his anxiety. Overnight he had some confusion and agitation requiring restraints and a nonrebreather mask for some time. No PRN morphine given overnight. He did receive 3 mg of Ativan overnight for his agitation which the nurse reports did have some effect on his confusion and dyspnea. He states he does not remember what happened last night, but knows that he had a bad night. He states he does not want another night like that and again reiterated that he wants to go home. He complains of having difficulty urinating due to recurrent prostate issues. His niece states he has had 2 prior surgeries to relieve urinary restriction and retention. He does have a Cline catheter in draining clear yellow urine but states he has to massage his lower belly to make the urine drain. He describes the sensation as mild to moderate intensity, feels like he has difficulty voiding completely and has pressure as though he needs to urinate in spite of the draining Cline catheter. Anxiety is improved with the Ativan. He received his last dose of Ativan 4:45 this morning, and at this evaluation he remains calm. He describes his anxiety as mild, intermittent. He notes that it disturbs his sleep overnight making his breathing bad enough to require oxygen via mask. . Family/Friend Interactions: I was contacted by his niece, Tanika, who assists him with making decisions and who is his healthcare surrogate to review possible discharge options. She states that his goal is to go home. He does have a part-time caregiver supplied by the [place] that has worked with him for several years. She stays at his house approximately 4 hours a day, and assists with cooking and housecleaning, as well as personal care. Tanika notes that although the patient had previously used the test hospice services when his was very ill, she is 1 of the original auxiliary and at [facility] and would prefer to have him go there, particularly considering the option of the care center. I discussed this with the patient and his niece advising him that [facility] does not at this time have a hospice care center and if he were to need acute treatment they traditionally use [facility] inpatient hospice [place]. He stated that he wanted to be out of the hospital and would accept [facility] hospice services because of the care center option but states that his goal is to be returned home if at all possible. Hospice consult was entered and hospice admission nurse notified. Spoke with Dr. Martinez, his attending battery wrecker operator today, who agrees that hospice is an appropriate option for him. . Advance Directives Health Care Surrogate Name and Number: Tanika Fermin Objective Vital Signs: Vital Signs 07/28/18 13:00 07/28/18 14:00 07/28/18 15:00 Temperature Pulse Rate 82 81 83 Respiratory Rate 33 H 26 H 32 H Blood Pressure 131/80 128/80 Pulse Oximetry 92 L 94 L 92 L 07/28/18 15:01 07/28/18 15:58 07/28/18 16:00 Temperature 97.9 F Pulse Rate 83 78 82 Respiratory Rate 35 H 20 35 H Blood Pressure 177/74 H 128/69 Pulse Oximetry 93 L 97 07/28/18 16:01 07/28/18 17:00 07/28/18 18:00 Temperature Pulse Rate 80 77 79 Respiratory Rate 39 H 32 H 31 H Blood Pressure 128/69 121/61 143/69 H Pulse Oximetry 96 86 L 92 L 07/28/18 19:00 07/28/18 19:01 07/28/18 20:00 Temperature 97.9 F Pulse Rate 108 H 107 H 79 Respiratory Rate 37 H 31 H 62 H Blood Pressure 164/94 H 116/58 L Pulse Oximetry 76 L 80 L 95 07/28/18 20:36 07/28/18 21:00 07/28/18 22:00 Temperature Pulse Rate 78 79 77 Respiratory Rate 20 25 H 19 Blood Pressure 91/52 L Pulse Oximetry 97 91 L 96 07/28/18 22:01 07/28/18 23:00 07/29/18 00:00 Temperature Pulse Rate 77 76 76 Respiratory Rate 19 18 18 Blood Pressure 105/59 L 111/58 L 116/63 Pulse Oximetry 97 95 98 07/29/18 01:00 07/29/18 01:01 07/29/18 02:00 Temperature Pulse Rate 68 70 54 L Respiratory Rate 18 19 32 H Blood Pressure 104/55 L 100/57 L Pulse Oximetry 92 L 91 L 96 07/29/18 03:00 07/29/18 04:00 07/29/18 04:01 Temperature Pulse Rate 50 L 62 66 Respiratory Rate 31 H 21 20 Blood Pressure 102/55 L 131/61 Pulse Oximetry 94 L 95 97 07/29/18 05:00 07/29/18 06:00 07/29/18 07:00 Temperature Pulse Rate 73 70 76 Respiratory Rate 19 24 Blood Pressure 129/75 122/63 132/72 Pulse Oximetry 100 93 L 97 07/29/18 08:00 07/29/18 08:59 07/29/18 09:00 Temperature 98.0 F Pulse Rate 77 80 Respiratory Rate 35 H 24 Blood Pressure 129/70 134/81 Pulse Oximetry 97 94 L 100 07/29/18 10:00 07/29/18 11:00 07/29/18 12:00 Temperature 97.9 F Pulse Rate 80 79 80 Respiratory Rate 24 21 23 Blood Pressure 128/67 114/60 127/72 Pulse Oximetry 97 98 95 Intake & Output 07/28/18 07/29/18 07/29/18 18:59 06:59 18:59 Intake Total 650 / 650 510 / 510 Output Total 2600 / 2600 300 / 300 Balance -1950 / -1950 210 / 210 Weight 154 lb 1.65 oz Intake: IV 200 / 200 460 / 460 Zosyn 4.5 GM Premix 4.5 gm In 200 / 200 200 / 200 100 ml @ 200 mls/hr IV.SIG Q6H IRENA Rx#:[id number] Sodium Phosphate Inj 30 MMOL In 260 / 260 NS Inj 250 ML @ 42 mls/hr IV. SIG UNSCH PRN Rx#:[id number] Oral 450 / 450 Oral Supplement 50 / 50 Output: Urine Amount (Catheter) 2600 / 2600 300 / 300 Indwelling Urethral Catheter 2600 / 2600 300 / 300 Other: Date of Last Bowel Movement 07/28/18 07/28/18 07/28/18 # Bowel Movements 1 Physical Exam: CONSTITUTIONAL/GENERAL: This is an adequately nourished patient, in no apparent distress. TUBES/LINES/DRAINS: Left IJ, Cline SKIN: No jaundice, rashes, or lesions. Ecchymoses on upper extremities. No wounds seen anteriorly. Skin temperature appropriate. Not diaphoretic. HEAD: Atraumatic. Normocephalic. EYES: Pupils equal and round and reactive. Extraocular motions intact. No scleral icterus. No injection or drainage. Fundi not examined. ENT: Hearing diminished. Nose without bleeding or purulent drainage. Throat without visible erythema, exudates, masses, or lesions. NECK: Trachea midline. Supple, nontender. No palpable thyroid enlargement or nodularity. CARDIOVASCULAR: Irregular rhythm, controlled rate, no rub murmur or gallop. RESPIRATORY/CHEST: Lungs diminished, tachypneic, no wheezes rhonchi or crackles GASTROINTESTINAL: Abdomen soft, non-tender, nondistended. No hepato-splenomegaly , or palpable masses. No guarding. Bowel sounds present. GENITOURINARY: Without palpable bladder distension. Cline catheter in place. MUSCULOSKELETAL: Extremities without clubbing, cyanosis, or edema. No joint tenderness or effusion noted. No calf tenderness. No mottling or clubbing. LYMPHATICS: No palpable cervical or supraclavicular adenopathy. NEUROLOGICAL: Awake, lethargic. Oriented 4, motor and sensory grossly within normal limits. Follows commands. Cognitively sharp. Moves all extremities. PSYCHIATRIC: Mild anxiety, improved from yesterday. . Diagnostic Tests Laboratory: Laboratory Results - last 72 hr 07/24/18 07/26/18 07/26/18 14:26 18:12 23:54 WBC RBC Hgb Hct MCV MCH MCHC RDW Plt Count MPV Neut % (Auto) Lymph % (Auto) [place] % (Auto) Eos % (Auto) Baso % (Auto) Neut # (Auto) Lymph # (Auto) [place] # (Auto) Eos # (Auto) Baso # (Auto) WBC Differential Differential Comment Sodium Potassium Chloride Carbon Dioxide Anion Gap BUN Creatinine Estimated GFR POC Glucose 118 H 130 H Random Glucose Calcium Phosphorus Magnesium Total Bilirubin AST ALT Alkaline Phosphatase Total Protein Albumin C. pneumoniae IgG Titer 1:64 H C. pneumoniae IgA Titer <1:16 C. pneumoniae IgM Titer <1:10 C. pneumoniae Ab Interp Past infection M. pneumoniae Interp . Mycoplasma pneumon IgG Positive Mycoplasma pneumon IgM Negative 07/27/18 07/27/18 07/27/18 03:45 03:45 11:45 WBC 7.6 RBC 4.11 L Hgb 13.9 Hct 41.0 MCV 99.8 MCH 33.8 MCHC 33.9 RDW 12.8 Plt Count 172 MPV 8.2 Neut % (Auto) 90.0 H Lymph % (Auto) 3.2 L [place] % (Auto) 6.7 Eos % (Auto) 0.0 Baso % (Auto) 0.1 Neut # (Auto) 6.9 Lymph # (Auto) 0.2 L [place] # (Auto) 0.5 Eos # (Auto) 0.0 Baso # (Auto) 0.0 WBC Differential . Differential Comment Auto diff final Sodium 143 Potassium 3.2 L Chloride 99 Carbon Dioxide 36.5 H Anion Gap 8 BUN 29 H Creatinine 0.96 Estimated GFR 74 L POC Glucose 120 H Random Glucose 113 H Calcium 8.4 L Phosphorus 2.5 Magnesium 2.3 Total Bilirubin 0.8 AST 18 ALT 36 Alkaline Phosphatase 50 Total Protein 5.5 L Albumin 3.0 L C. pneumoniae IgG Titer C. pneumoniae IgA Titer C. pneumoniae IgM Titer C. pneumoniae Ab Interp M. pneumoniae Interp Mycoplasma pneumon IgG Mycoplasma pneumon IgM 07/27/18 07/27/18 07/28/18 17:37 17:40 00:32 WBC RBC Hgb Hct MCV MCH MCHC RDW Plt Count MPV Neut % (Auto) Lymph % (Auto) [place] % (Auto) Eos % (Auto) Baso % (Auto) Neut # (Auto) Lymph # (Auto) [place] # (Auto) Eos # (Auto) Baso # (Auto) WBC Differential Differential Comment Sodium Potassium 3.2 L Chloride Carbon Dioxide Anion Gap BUN Creatinine Estimated GFR POC Glucose 165 H 139 H Random Glucose Calcium Phosphorus Magnesium Total Bilirubin AST ALT Alkaline Phosphatase Total Protein Albumin C. pneumoniae IgG Titer C. pneumoniae IgA Titer C. pneumoniae IgM Titer C. pneumoniae Ab Interp M. pneumoniae Interp Mycoplasma pneumon IgG Mycoplasma pneumon IgM 07/28/18 07/28/18 07/28/18 06:04 08:52 08:52 WBC 10.3 RBC 4.33 L Hgb 14.5 Hct 43.4 MCV 100.2 H MCH 33.5 MCHC 33.5 RDW 13.0 Plt Count 193 MPV 8.4 Neut % (Auto) 89.9 H Lymph % (Auto) 2.8 L [place] % (Auto) 7.3 Eos % (Auto) 0.0 Baso % (Auto) 0.0 Neut # (Auto) 9.2 H Lymph # (Auto) 0.3 L [place] # (Auto) 0.7 Eos # (Auto) 0.0 Baso # (Auto) 0.0 WBC Differential . Differential Comment Auto diff final Sodium 145 Potassium 3.9 Chloride 101 Carbon Dioxide 37.9 H Anion Gap 6 BUN 32 H Creatinine 0.91 Estimated GFR 78 L POC Glucose 119 H Random Glucose 122 H Calcium 9.0 Phosphorus 2.3 L Magnesium 2.6 H Total Bilirubin 0.9 AST 18 ALT 40 Alkaline Phosphatase 48 Total Protein 5.6 L Albumin 3.0 L C. pneumoniae IgG Titer C. pneumoniae IgA Titer C. pneumoniae IgM Titer C. pneumoniae Ab Interp M. pneumoniae Interp Mycoplasma pneumon IgG Mycoplasma pneumon IgM 07/28/18 07/28/18 07/28/18 11:44 17:15 23:45 WBC RBC Hgb Hct MCV MCH MCHC RDW Plt Count MPV Neut % (Auto) Lymph % (Auto) [place] % (Auto) Eos % (Auto) Baso % (Auto) Neut # (Auto) Lymph # (Auto) [place] # (Auto) Eos # (Auto) Baso # (Auto) WBC Differential Differential Comment Sodium Potassium Chloride Carbon Dioxide Anion Gap BUN Creatinine Estimated GFR POC Glucose 135 H 129 H 150 H Random Glucose Calcium Phosphorus Magnesium Total Bilirubin AST ALT Alkaline Phosphatase Total Protein Albumin C. pneumoniae IgG Titer C. pneumoniae IgA Titer C. pneumoniae IgM Titer C. pneumoniae Ab Interp M. pneumoniae Interp Mycoplasma pneumon IgG Mycoplasma pneumon IgM 07/29/18 07/29/18 07/29/18 04:56 06:40 06:40 WBC 9.8 RBC 4.47 L Hgb 14.9 Hct 45.1 MCV 100.9 H MCH 33.2 MCHC 33.0 RDW 12.7 Plt Count 175 MPV 7.8 Neut % (Auto) 92.2 H Lymph % (Auto) 2.3 L [place] % (Auto) 5.4 Eos % (Auto) 0.0 Baso % (Auto) 0.1 Neut # (Auto) 9.1 H Lymph # (Auto) 0.2 L [place] # (Auto) 0.5 Eos # (Auto) 0.0 Baso # (Auto) 0.0 WBC Differential . Differential Comment Auto diff final Sodium 148 H Potassium 3.2 L Chloride 100 Carbon Dioxide 41.5 H Anion Gap 7 BUN 41 H Creatinine 0.89 Estimated GFR 80 L POC Glucose 120 H Random Glucose 122 H Calcium 8.4 L Phosphorus 4.9 D Magnesium 2.9 H Total Bilirubin 0.8 AST 15 ALT 49 Alkaline Phosphatase 44 L Total Protein 5.5 L Albumin 2.8 L C. pneumoniae IgG Titer C. pneumoniae IgA Titer C. pneumoniae IgM Titer C. pneumoniae Ab Interp M. pneumoniae Interp Mycoplasma pneumon IgG Mycoplasma pneumon IgM 07/29/18 12:01 WBC RBC Hgb Hct MCV MCH MCHC RDW Plt Count MPV Neut % (Auto) Lymph % (Auto) [place] % (Auto) Eos % (Auto) Baso % (Auto) Neut # (Auto) Lymph # (Auto) [place] # (Auto) Eos # (Auto) Baso # (Auto) WBC Differential Differential Comment Sodium Potassium Chloride Carbon Dioxide Anion Gap BUN Creatinine Estimated GFR POC Glucose 183 H Random Glucose Calcium Phosphorus Magnesium Total Bilirubin AST ALT Alkaline Phosphatase Total Protein Albumin C. pneumoniae IgG Titer C. pneumoniae IgA Titer C. pneumoniae IgM Titer C. pneumoniae Ab Interp M. pneumoniae Interp Mycoplasma pneumon IgG Mycoplasma pneumon IgM Result Diagrams: 07/29/18 06:40 07/29/18 06:40 Microbiology: Microbiology 07/23/18 13:25 Aerobic Blood Culture - Final Blood - Peripheral No growth in 5 days Anaerobic Blood Culture - Final No growth in 5 days 07/23/18 13:20 Aerobic Blood Culture - Final Blood - Peripheral No growth in 5 days Anaerobic Blood Culture - Final No growth in 5 days 07/25/18 18:00 Gram Stain - Final Sputum - Oral Tracheal Aspirate Sputum Culture - Final Heavy growth normal respiratory monica Imaging: Chest CTA 07/23/18 00:00 CONCLUSION: 1. COPD with mild subsegmental airspace disease in the lingula. 2. No evidence of pulmonary embolism. 3. Mild background groundglass opacity with small bilateral effusions which may represent mild congestive heart failure. 4. Calcified coronary arteries. Venous Doppler Study 07/23/18 00:00 CONCLUSION: The study is negative for lower extremity deep venous thrombosis. Chest X-Ray 07/23/18 13:18 CONCLUSION: Bibasilar airspace opacities, new since the prior study. The appearance could represent pulmonary edema in the appropriate clinical setting. Chest X-Ray 07/24/18 12:10 CONCLUSION: 1. Endotracheal tube and nasogastric tube now in place. 2. No change in mild bilateral lower lung zone opacity. Chest X-Ray 07/24/18 18:39 CONCLUSION: Left-sided catheter with an acute bend at the aortic arch. Intravenous location cannot be confirmed. No evidence of pneumothorax. A lateral airspace disease and effusions COPD Chest X-Ray 07/24/18 19:14 CONCLUSION: New right jugular central venous catheter which appears to be in appropriate position. No evidence of pneumothorax. Left-sided line as described. No change in bilateral airspace disease and bilateral effusions. Head CT 07/25/18 00:00 CONCLUSION: 1. Bilateral cystic hygromas/chronic subdural hematomas that are right greater than left and with associated 6 mm of leftward midline shift. 2. No acute blood or evidence of an acute ischemic event. 3. Atrophy. . Chest X-Ray 07/25/18 06:00 CONCLUSION: Bibasilar consolidation without significant change. Head MRI 07/25/18 07:45 CONCLUSION: 1. Redemonstration of bilateral cystic hygromas, slightly asymmetric (right greater than left) and associated 5 mm right to left midline shift. 2. Otherwise, no acute abnormality. Specifically, no acute hemorrhage, hydrocephalus or abnormal enhancement. Chest X-Ray 07/27/18 09:22 CONCLUSION: 1. No significant interval change following extubation and removal of NGT. 2. Stable bilateral lower lung zone airspace disease, right greater than left, with questionable trace associated pleural fluid. Procedures: 07/24: Intubation 07/24: Left IJ central line insertion . 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 At that time he joined the [employer] and served in [place], remaining in the [employer] for 40 years retiring. He was for 61 years and lost his a few years ago. He does not have children but is very close to his niece, Tanika. 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 Legal: Patient states he has a living will and a healthcare surrogate, his niece , Tanika however those documents are not readily available at this time. Ethical issues impacting care: None noted. . Important Contacts: Niece: Tanika Fermin . Prognosis: His prognosis is poor. He is significantly dyspneic on 4 L nasal cannula. The patient himself states that this has been progressively worsening in spite of medication compliance with prescribed therapy. His echocardiogram does show a decreased ejection fraction over his baseline 40% now less than 20% with mildly elevated BNP and elevated troponin. He has now developed new onset atrial flutter, likely secondary to his pneumonia. He is at significant risk for continued respiratory decline and reintubation. He would be hospice appropriate if goals were consistent. Code Status: Full Code Plan: PLAN: Legal decision maker: The patient is capacitated for decision-making, however discusses all decisions with his healthcare surrogate, Tanika. Per [place] statutes as he is and has no children, parents and siblings are , she would fit the statute definition of a healthcare proxy Goals: To be determined CODE STATUS: FULL CODE, currently discussing CODE STATUS with hospice. SYMPTOMS: * Dyspnea: He is visibly dyspneic with any activity or speech. He is currently receiving albuterol nebulizers as needed, Symbicort 160/4.5 mcg inhaled 2 puffs twice daily, furosemide 40 mg IV daily, guaifenesin 600 mg p.o. twice daily, Solu-Medrol 40 mg IV every 12, Zosyn 4.5 g every 6 hours and azithromycin 500 mg daily for pneumonia treatment. He currently remains on 4 L nasal cannula, saturating adequately. * Anxiety: He has been receiving BuSpar 5 mg p.o. 3 times daily however that was increased today to 10 mg [address] Stovall. Due to his significant dyspnea and anxiety at this evaluation Ativan 1 mg IV every 2 hours was initiated as well as morphine 4 mg IV every 6 hours as needed for anxiety and dyspnea. * Confusion: He developed confusion overnight, delirium versus hypoxia. He required Ativan, 1 mg 3 times overnight to control his confusion and agitation. Ativan is available as needed. Patient required restraints overnight as he was trying to get out of bed. He is awaiting discussion with hospice to determine whether to enroll in transfer to the [facility] for continued care. * Dysuria: He has had previous prostate surgery twice due to urinary retention and at this time is having difficulty expressing urine. Would recommend irrigating the Cline catheter to ensure patency. Palliative care will continue to follow the patient during hospital course as condition evolves, to assist patient/decision-maker with understanding of their medical conditions, weighing benefits/burdens of treatment options, for clarification of goals of treatment. Additionally will assist with any symptoms of palliative concern. . Attestation Attestation: To help prompt me to consider important information that might be impacting today's encounter and assessment, information from prior notes written by myself or my colleagues may have been "brought forward" into today's note. My signature on this note, however, is an attestation that I personally performed the exam, history, and/or decision-making noted today, and, unless otherwise indicated, the interactions with patient, family, and staff as well as the review of records all occurred today. I also attest that the listed assessment and stated plan reflect my best clinical judgment today based on the combination of historical information, prior notes, and today's exam/ interactions. When time spent is documented, it refers only to time spent today by the signer, or if indicated, combined time spent today by collaborating physician/nurse practitioner. .
[2018-07-29] MEDS: Azithromycin 250 MG Tablet PO SCH (15:20)
[2018-07-29 16:17] VITALS: BP 111/58; PULSE 79; RESP 27; TEMP 98.4
--- NOTE | 2018-07-29 17:38 | P.PNPL ---
Subjective Interval history: 87 YOWM with Severe COPD, RF, s/p extubation SOB with any activity Anxiety makes his breathing even worse Echo EF 20-25% Resting comfortably after getting Morphine Physical Exam Vital signs: Vital Signs 07/28/18 18:00 07/28/18 19:00 07/28/18 19:01 Temperature Pulse Rate 79 108 H 107 H Respiratory Rate 31 H 37 H 31 H Blood Pressure 143/69 H 164/94 H Pulse Oximetry 92 L 76 L 80 L 07/28/18 20:00 07/28/18 20:36 07/28/18 21:00 Temperature 97.9 F Pulse Rate 79 78 79 Respiratory Rate 62 H 20 25 H Blood Pressure 116/58 L 91/52 L Pulse Oximetry 95 97 91 L 07/28/18 22:00 07/28/18 22:01 07/28/18 23:00 Temperature Pulse Rate 77 77 76 Respiratory Rate 19 19 18 Blood Pressure 105/59 L 111/58 L Pulse Oximetry 96 97 95 07/29/18 00:00 07/29/18 01:00 07/29/18 01:01 Temperature Pulse Rate 76 68 70 Respiratory Rate 18 18 19 Blood Pressure 116/63 104/55 L Pulse Oximetry 98 92 L 91 L 07/29/18 02:00 07/29/18 03:00 07/29/18 04:00 Temperature Pulse Rate 54 L 50 L 62 Respiratory Rate 32 H 31 H 21 Blood Pressure 100/57 L 102/55 L Pulse Oximetry 96 94 L 95 07/29/18 04:01 07/29/18 05:00 07/29/18 06:00 Temperature Pulse Rate 66 73 70 Respiratory Rate 20 19 Blood Pressure 131/61 129/75 122/63 Pulse Oximetry 97 100 93 L 07/29/18 07:00 07/29/18 08:00 07/29/18 08:59 Temperature 98.0 F Pulse Rate 76 77 Respiratory Rate 24 35 H Blood Pressure 132/72 129/70 Pulse Oximetry 97 97 94 L 07/29/18 09:00 07/29/18 10:00 07/29/18 11:00 Temperature Pulse Rate 80 80 79 Respiratory Rate 24 24 21 Blood Pressure 134/81 128/67 114/60 Pulse Oximetry 100 97 98 07/29/18 12:00 07/29/18 13:00 08/31/18 14:00 Temperature 97.9 F Pulse Rate 80 81 79 Respiratory Rate 23 25 H 20 Blood Pressure 127/72 125/60 95/56 L Pulse Oximetry 95 95 86 L 07/29/18 15:00 07/29/18 16:00 07/29/18 16:01 Temperature 98.4 F Pulse Rate 81 79 79 Respiratory Rate 35 H 26 H 27 H Blood Pressure 146/79 H 111/58 L 111/58 L Pulse Oximetry 96 95 95 Intake & Output 07/28/18 07/29/18 07/29/18 18:59 06:59 18:59 Intake Total 650 / 650 510 / 510 100 / 100 Output Total 2600 / 2600 300 / 300 Balance -1950 / -1950 210 / 210 100 / 100 Weight 69.9 kg Intake: IV 200 / 200 460 / 460 100 / 100 Zosyn 4.5 GM Premix 4.5 gm In 200 / 200 200 / 200 100 / 100 100 ml @ 200 mls/hr IV.SIG Q6H IRENA Rx#:[id number] Sodium Phosphate Inj 30 MMOL In 260 / 260 NS Inj 250 ML @ 42 mls/hr IV. SIG UNSCH PRN Rx#:[id number] Oral 450 / 450 Oral Supplement 50 / 50 Output: Urine Amount (Catheter) 2600 / 2600 300 / 300 Indwelling Urethral Catheter 2600 / 2600 300 / 300 Other: Date of Last Bowel Movement 07/28/18 07/28/18 07/28/18 # Bowel Movements 1 GENERAL: Frail elderly WM, mild sob SKIN: Warm and dry. HEAD: Normocephalic. EYES: No scleral icterus. No injection or drainage. NECK: Supple, trachea midline. No JVD or lymphadenopathy. CARDIOVASCULAR: Regular rate and rhythm without murmurs, gallops, or rubs. RESPIRATORY: Breath sounds equal bilaterally. No accessory muscle use. GASTROINTESTINAL: Abdomen soft, non-tender, nondistended. MUSCULOSKELETAL: No cyanosis, or edema. BACK: Nontender without obvious deformity. No CVA tenderness. - Urinary Catheter Management Condom Cath placed during this visit: no Urethral indwelling: No Indwelling Urethral Catheter Cath placed during this visit: yes Reason for continuing: Hourly intake/output Insertion date: 07/24/18 Assessment and Plan - Plan IMPRESSION: 1. Respiratory failure, status post extubation. 2. Severe chronic obstructive pulmonary disease. 3. Increased troponin. 4. Subdural hematoma. 5. CMP 6. Anxiety disorder PLAN: Supplement 02 Buspar 10 mg tid for anxiety IV Solumedrol Cont Abx Encourage po Hospice care I will sign off
--- NOTE | 2018-08-27 22:59 | MD ---
cc: Aneesh Cedillo MD DATE OF DISCHARGE: 07/29/2018 HOSPITAL COURSE: Patient is an 87-year-old male with a past medical history of COPD, anxiety disorder, prostate cancer, hypertension, coronary artery disease, glaucoma, diverticulosis, CHF with ejection fraction of 40%. The patient was admitted under hospitalist service on 07/23/2018 for shortness of breath. He underwent CT pulmonary angiogram and Doppler ultrasound of lower extremities, which were negative for thrombosis. The patient was treated for his COPD and CHF. The patient was transferred to ICU on 07/24/2018 for worsening respiratory status and Critical Care Medicine was consulted. The patient was electively intubated due to impending respiratory failure and was started on fentanyl infusion for sedation. The patient was treated with bronchodilators and IV steroids. He was being followed by Dr. Stovall from pulmonary service. He underwent CT scan of the brain, which showed no evidence of any acute ischemic event or hemorrhage. MRI of the brain was obtained on 07/25/2018 which showed bilateral cystic hygromas, otherwise no acute abnormality identified. The patient was seen by Dr. Dhaliwal from neurosurgery service. His echocardiogram showed an EF of less than 20%. The patient was on Cardizem 60 mg q. 6 hours and Apixaban 5 mg was placed on hold. He had a nuclear medicine stress test in May, which showed old anteroseptal infarct. He was extubated and placed on bronchodilators as stated above. He was also on diuretics in form of Lasix 40 mg daily. The patient was also on sliding scale insulin with Accu-Cheks to maintain euglycemia while on steroids. He was also on broad-spectrum antibiotics and his influenza screening was negative along with his legionella and pneumococcal urinary antigen. Also, his blood cultures were negative. Palliative care was following, and after discussion with hospice, the patient agreed to transfer to the [facility] for continued care. He was discharged on 07/29/2018. MD YASMEEN Wesley/emmie , 12:38 PM , 12:46 PM
== END 2018-07-29 18:27 ==
LOC: NEPC 13:01 → NEDA 15:57 → N04 17:26 → HIMC 07-24 11:40
PROVIDERS: ADMIT Internal Medicine Critical Care Medicine; ATTEND Internal Medicine Critical Care Medicine